=== PATIENT | female | born 1945 | race Caucasian/White ===

== ENCOUNTER 2020-11-17 14:33 | Inpatient (IN) | payer MEDICARE, MEDICAID, SELFPAY ==
[2020-11-17] VITALS (22 sets, daily range): BP systolic 87–160; BP diastolic 44–143; PULSE 72–89; RESP 15–22; TEMP 36.1–36.8; O2SAT 72–100
--- NOTE | ~2020-11-17 | CT_ITS ---
EXAMINATION: CTA chest PE protocol DATE: 11/17/2020 17:21 INDICATION: Hypoxia TECHNIQUE: Computed tomography (CT) pulmonary angiogram of the chest was performed with 100 mL Omnipa que-350 intravenous contrast. Additional 3D reconstructions utilizing coronal maximum intensity proje ction (MIP) were performed. Automated exposure control and iterative reconstruction technique were em ployed. The dose-length product was 868.91 mGy-cm. COMPARISON: None FINDINGS: Excellent contrast opacification of the pulmonary arteries. There is moderate streak artifact from de nse contrast in the superior vena cava and right atrium. Mild scattered respiratory motion artifact. Give this mildly decreases sensitivity in some of the smaller subsegmental pulmonary arteries. No pul monary embolism. Small lung volumes and bilateral dependent predominant groundglass opacities consist ent with atelectasis due to expiratory phase of imaging with concave posterior wall to the trachea. N o pleural effusion or pneumothorax. Cardiomegaly. Atherosclerotic coronary artery calcification. No p ericardial effusion. Prominent paracardial fat pads and mediastinal lipomatosis. Thoracic aorta is no rmal in caliber with no dissection. No pathologically enlarged thoracic visualized upper abdomen is u nremarkable. lymphadenopathy. Severe thoracic spondylosis with bridging osteophytes at multiple level s consistent with diffuse idiopathic skeletal hyperostosis (DISH). IMPRESSION: 1. No pulmonary embolism. Sensitivity mildly decreased in some of the smaller subsegmental pulmonary arteries due to streak and respiratory motion artifact. 2. Small lung volumes with bilateral dependent atelectasis likely due to expiratory phase of imaging. 3. Cardiomegaly. Reviewed, dictated and finalized at location A. IMPRESSION: 1. No pulmonary embolism. Sensitivity mildly decreased in some of the smaller s ubsegmental pulmonary arteries due to streak and respiratory motion artifact. 2. Small lung volumes with bilateral dependent atelectasis likely due to expira tory phase of imaging. 3. Cardiomegaly.
--- NOTE | ~2020-11-17 | XR_ITS ---
EXAMINATION: XR chest 1V DATE: 11/17/2020 15:30 INDICATION: Transient alteration of awareness TECHNIQUE: frontal view of the chest was obtained. COMPARISON: None FINDINGS: Subtle opacity at the right upper lung zone. Cardiomegaly with prominent left paracardial fat pad whi ch is accentuated by some leftward rotation of the patient. No pleural effusion or pneumothorax. IMPRESSION: 1. Subtle asymmetric increased opacity in the right upper lung zone which raises suspicion for pneumo marcus but could also be artifact of the leftward rotation of the patient. Reviewed, dictated and finalized at location A. IMPRESSION: 1. Subtle asymmetric increased opacity in the right upper lung zone which raise s suspicion for pneumonia but could also be artifact of the leftward rotation o f the patient.
--- NOTE | ~2020-11-17 | CT_ITS ---
EXAMINATION: CT brain wo con DATE: 11/17/2020 15:26 INDICATION: Confusion TECHNIQUE: Computed tomography (CT) of the head was performed without intravenous contrast. Sagittal and coronal reconstructions were performed. The mA was adjusted according to patient size. Iterative reconstruction technique was employed. The dose-length product was 605.33 mGy-cm. COMPARISON: None FINDINGS: No acute intracranial hemorrhage, acute infarction or abnormal extra axial fluid collection. There is mild scattered white matter hypoattenuation consistent with chronic small vessel ischemic disease. V entricles are normal and symmetric. No mass/mass effect. Changes of bilateral intraocular lens replac ement. The orbits, paranasal sinuses and mastoid air cells are normal. Intracranial calcified cerebra l atherosclerosis is noted. IMPRESSION: 1. No acute intracranial process. 2. Mild scattered white matter hypoattenuation consistent with chronic small vessel ischemic disease. Reviewed, dictated and finalized at location A. IMPRESSION: 1. No acute intracranial process. 2. Mild scattered white matter hypoattenuation consistent with chronic small ve ssel ischemic disease.
--- NOTE | 2020-11-17 14:56 | ECG_ITS ---
Measurements Intervals [place] Rate: 86 P: 57 WA: 168 QRS: -18 QRSD: 146 T: 21 QT: 399 QTc: 478 Interpretive Statements SINUS RHYTHM RIGHT BUNDLE BRANCH BLOCK ABNORMAL ECG Electronically Signed On 11-17-2020 17:42:24 CDT by Forrest Batres D.O.
[2020-11-17 14:57] LABS: Base Excess ABG 8.7 mEq/l (+/-2.0); Carboxyhemoglobin 0.9 % THb (0-2.0); Fractional Inspired Oxygen 21 %; HCO3 ABG 35.2 mEq/l (22.0-26.0); Methemoglobin ABG 0.2 %THb (0-1.5); Oxygen Content ABG 14.8 %vol (16.0-22.0); Oxyhemoglobin 81.2 % THb (90.0-100.0); PCO2 ABG 57.1 mmHg (35.0-45.0); PO2 FiO2 Ratio Arterial Blood 2.35 %; Reduced Hemoglobin 17.7 %THb (0-5.0); pH ABG 7.408 (7.350-7.450)
[2020-11-17 14:58] LABS: PO2 ABG 49.4 mmHg (80.0-100.0)
[2020-11-17 14:59] LABS: Device ROOM AIR; Modified Allen's Test Pass; Oxygen Saturation ABG 84.3 % (95.0-100.0); Site Drawn RIGHT RADIAL
[2020-11-17 15:10] LABS: Add Urine Microscopic? YES; Appearance Urine Clear (Clear); Bilirubin Urine Negative (Negative); Blood Urine Negative (Negative); Color Urine Yellow (Yellow); Glucose Urine UA 3+ mg/dL (Negative); Ketones Urine Negative (Negative); Leukocyte Esterase Ur 1+ LEU/UL (Negative); Mucus Urine Rare /lpf; Nitrate Urine Negative (Negative); Protein Urine Negative (Negative); RBC Urine 0-2 /hpf (0-2); Specific Grav Ur 1.012 (1.001-1.035); Squamous Epithelial Cell Urine Occasional /hpf (Few); Urobilinogen Urine Negative mg/dL (<2.0); WBC Urine 0-3 /hpf
[2020-11-17 15:54] LABS: Basophils Percent Auto 0.5 % (0.2-1.2); Eosinophils Absolute Auto 0.1 K/mm3 (0-0.3); Eosinophils Percent Auto 1.6 % (0-4.4); Hematocrit 38.2 % (42.0-52.0); Hemoglobin 12.2 g/dL (14.0-18.0); Immature Granulocyte Absolute 0.03 K/mm3 (0.00-0.031); Immature Granulocyte Percent A 0.5 % (0-0.5); Lymphocytes Absolute Auto 1.21 K/mm3 (0.9-3.2); Lymphocytes Percent Auto 19.6 % (18.3-44.2); Mean Corpuscular HGB Conc 31.9 g/dl (32-36); Mean Corpuscular Hemoglobin 30.7 pg (26-34); Mean Corpuscular Volume 96.2 fl (80-100); Mean Platelet Volume 10.2 fl (7.4-10.4); Monocytes Absolute Auto 0.5 K/mm3 (0.1-0.6); Monocytes Percent Auto 8.7 % (2.6-8.5); Neutrophils Absolute Auto 4.3 K/mm3 (1.3-6.7); Neutrophils Percent Auto 69.1 % (45.5-73.1); Platelet Count Result 381 k/mm3 (150-375); Red Blood Count 3.97 M/mm3 (4.6-6.20); Red Cell Distribution Width 14.1 % (11.5-14.5); White Blood Count 6.2 K/mm3 (4.5-10.0)
[2020-11-17 16:07] LABS: Alanine Aminotransferase 26 U/L (4-50); Alkaline Phosphatase 69 U/L (38-126); Anion Gap 1 mmol/L (8-16); Aspartate Amino Transferase 41 U/L (17-59); Bilirubin,Total 0.2 mg/dL (0.2-1.3); Blood Urea Nitrogen 44 mg/dL (9-20); Calcium 10.6 mg/dL (8.4-10.2); Carbon Dioxide 37 mmol/L (22-30); Chloride 92 mmol/L (98-107); Estimated CRCL calculation 43 ml/min; Estimated Glomerular Filt Rate 54; Glucose 278 mg/dL (65-110); Potassium 3.8 mmol/L (3.4-5.0); Sodium 130 mmol/L (137-145)
[2020-11-17 16:19] LABS: NT Pro B Type Natriuretic Pept 418 pg/mL (5-100); Troponin I < 0.012 ng/mL (0.000-0.034)
--- NOTE | 2020-11-17 16:49 | ED.WEAKNESS ---
HPI - Weakness General Chief complaint: Altered Mental Status Stated complaint: weakness Time Seen by Provider: 11/17/20 15:00 History of Present Illness HPI Narrative: Patient presents with altered mental status. Patient referred from a intermediate facility last time she was seen normal was around noon today. Patient's baseline mental status is alert and oriented x3 and is conversational. Patient has been more tired and mumbles when she responds to questions is a deviation from her norm. Nursing facility reports she was doing well this morning and over the past couple days Related Data Home Medications Medication Instructions Recorded Confirmed atorvastatin 11/17/20 fenofibrate nanocrystallized mg PO 11/17/20 fluticasone propionate [Flovent INHALATION 11/17/20 Diskus] furosemide 11/17/20 insulin NPH isoph U-100 human unit SUBCUT 11/17/20 [Novolin N Flexpen] insulin glargine [Lantus U-100 SUBCUT 11/17/20 Insulin] omeprazole 11/17/20 Allergies Allergy/AdvReac Type Severity Reaction Status Date / Time propofol Allergy Unknown Verified 11/17/20 22:05 Review of Systems Review of Systems: ROS unobtainable: Yes unobtainable due to mental status Exam Narrative: GENERAL: Well-appearing, well-nourished, and in no acute distress. SNoring HEAD: Normocephalic, atraumatic. EYES: PERRLA and EOMI. ENT: Nares clear, no rhinorrhea or epistaxis. Mucous membranes moist. NECK: Supple. No masses. No JVD CHEST: Clear to auscultation. No respiratory distress. No wheezes rales or rhonchi HEART: Regular rate and rhythm. No murmur heard. Normal peripheral pulses. ABDOMEN: Soft, nontender, nondistended, normal active bowel sounds. EXTREMITIES: Normal range of motion. No edema. SKIN: Warm, dry, no rash. NEURO: No focal deficits. Lethargic slow to respond to questioning mumbling speech PSYCH: Normal mood and affect. Course Reevaluation(s) Reevaluation #1: This is no change in patient's mental status Date: 11/17/20 Time: 16:57 Vital Signs Vital signs: Vital Signs Pulse Rate 89 11/17/20 14:40 Respiratory Rate 17 11/17/20 14:40 Blood Pressure 102/90 11/17/20 14:40 Temperature 36.1 C L 11/17/20 22:00 Pulse Rate 72 11/17/20 22:00 Respiratory Rate 18 11/17/20 22:00 Blood Pressure 118/76 11/17/20 22:00 Pulse Oximetry 91 11/17/20 22:00 MDM - Weakness MDM Narrative Medical decision making narrative: They presented with altered mental status and hypoxia. Labs and imaging obtained. Labs largely unremarkable imaging with questionable pneumonia otherwise no clear etiology. Given patient's decline today per the nursing facility she is admitted for continued monitoring. Lab Data Result diagrams: 11/17/20 15:47 11/17/20 15:47 Labs: Lab Results 11/17/20 11/17/20 11/17/20 Range/Units 14:49 15:00 15:47 WBC 6.2 (4.5-10.0) K/mm3 RBC 3.97 L (4.6-6.20) M/mm3 Hgb 12.2 L (14.0-18.0) g/dL Hct 38.2 L (42.0-52.0) % MCV 96.2 (80-100) fl MCH 30.7 (26-34) pg MCHC 31.9 L (32-36) g/dl RDW 14.1 (11.5-14.5) % Plt Count 381 H (150-375) k/mm3 MPV 10.2 (7.4-10.4) fl Immature Gran % (Auto) 0.5 (0-0.5) % Neut % (Auto) 69.1 (45.5-73.1) % Lymph % (Auto) 19.6 (18.3-44.2) % [place] % (Auto) 8.7 H (2.6-8.5) % Eos % (Auto) 1.6 (0-4.4) % Baso % (Auto) 0.5 (0.2-1.2) % Lymph # (Auto) 1.21 (0.9-3.2) K/mm3 [place] # (Auto) 0.5 (0.1-0.6) K/mm3 Eos # (Auto) 0.1 (0-0.3) K/mm3 Baso # (Auto) 0.0 (0.0-0.1) K/mm3 Abs Immat Gran (auto) 0.03 (0.00-0.031) K/mm3 Absolute Neuts (auto) 4.3 (1.3-6.7) K/mm3 Absolute Nucleated RBC 0.0 (0.0-0.012) K/mm3 Nucleated RBC % 0.0 (0.0-0.2) % Methemoglobin 0.2 (0-1.5) %THb Sodium (137-145) mmol/L Potassium (3.4-5.0) mmol/L Chloride (98-107) mmol/L Carbon Dioxide (22-30) mmol/L Anion Gap (8-16) mmol/L BUN
--- NOTE | 2020-11-17 17:05 | PC.NURSE ---
Consent for IV dye obtained from son Дмитрий Dorantes.
--- NOTE | 2020-11-17 17:17 | PC.NURSE ---
Repeatedly taking 02, monitor and gown off. Pt alert to name and place when awaken. Spoke with son on phone and he reports that pt has sleep apnea and also uses 02 at home.
[2020-11-17 20:17] LABS: Lactic Acid Reflex 1.3 mmol/L (0.7-2.1)
[2020-11-17 20:18] LABS: Acetaminophen < 10 ug/mL (10-30); Ammonia < 9 umol/L (9-30); Ethanol < 10 mg/dL (<10); Salicylate < 1.0 mg/dL (2-20)
[2020-11-17 20:38] LABS: Troponin I < 0.012 ng/mL (0.000-0.034)
[2020-11-17] MEDS: SODIUM CHLORIDE 0.9% IV 1,000 ML 999 ML IV CONT (21:20)
[2020-11-18] VITALS (24 sets, daily range): BP systolic 102–138; BP diastolic 45–73; PULSE 70–97; RESP 12–26; TEMP 35.7–36.6; O2SAT 94–100
--- NOTE | 2020-11-18 01:01 | PM.IMHP ---
H&P: HPI History of Present Illness Date/Time: 11/18/20 01:01 Chief Complaint: Altered mental status Narrative: 75-year-old female with a past medical history of obstructive sleep apnea, hyperlipidemia, diabetes mellitus GERD and CHF who presented to the ER from retirement for evaluation of lethargy and weakness. group home staff reported the patient's last known normal was around 12:00 p.m.. The the patient is oriented to her name. She does not answer other orientation questions form a she falls asleep quickly. She is slow to respond. she occasionally mumbles her answers. She is able to move all extremities equally. She is rolling around in the bed and changing her position without assistance. She does not provide information regarding her current health she does tells me okay. She wakes up in follow simple commands and will stick her tongue out at me and squeeze my fingers with equal sustainability specialist strength. The patient's son reported that the patient has a history of obstructive sleep apnea. The patient had new onset of oxygen requirements in the ER requiring 6 L high-flow nasal cannula to maintain O2 sats. She had a CTA of the chest performed in the ER which demonstrated no pulmonary embolism, small lung volumes with bilateral dependent atelectasis likely due to expiratory phase on imaging and cardiomegaly. CTA did not demonstrate the opacities that were concerning for pneumonia. The patient is encephalopathy made to be due to hypoxia. She is being admitted for possible COVID rule out considering her new significant oxygen requirement. She does not have any wheezing or evidence of respiratory distress. She does have some mild hypercapnia on her ABG but she has respiratory compensation. Her hypoxemia on ABG correlated with her level of hypoxia on pulse ox. There are normal records available for my review. Source of information is from ER records. Review of Systems Review of Systems: ROS unobtainable: Yes unobtainable due to mental status [facility] Past Medical History Medical History (Updated 11/18/20 @ 01:22 by Ruma Austin DO) Asthma Presumed as the patient is on Flovent CHF (congestive heart failure) Implied as patient is on Lasix GERD (gastroesophageal reflux disease) Hyperlipidemia Insulin dependent diabetes mellitus Obstructive sleep apnea Surgical History Surgical History (Updated 11/18/20 @ 01:22 by Ruma Austin DO) Surgical history unknown Family History Family History Other Unknown family medical history Social History Social History Smoking status: Unknown if ever smoked Alcohol intake: unknown Substance use: never Substance use type: does not use Living arrangements: retirement Spiritual care concerns: No Meds Home Medications and Allergies Home Medications Medication Instructions Recorded Confirmed Type atorvastatin 11/17/20 History fenofibrate nanocrystallized mg PO 11/17/20 History fluticasone propionate [Flovent INHALATION 11/17/20 History Diskus] furosemide 11/17/20 History insulin NPH isoph U-100 human unit SUBCUT 11/17/20 History [Novolin N Flexpen] insulin glargine [Lantus U-100 SUBCUT 11/17/20 History Insulin] omeprazole 11/17/20 History Allergies Allergy/AdvReac Type Severity Reaction Status Date / Time propofol Allergy Unknown Verified 11/17/20 22:05 Vital Signs Vital Signs - 24 hr 11/17/20 14:40 11/17/20 14:41 11/17/20 14:43 Temperature 98.2 F Pulse Rate 89 87 86 Respiratory Rate 17 18 17 Blood Pressure 102/90 111/54 L Pulse Oximetry 96 100 11/17/20 14:45 11/17/20 14:46 11/17/20 15:00 Temperature Pulse Rate 87 86 86 Respiratory Rate 20 17 18 Blood Pressure 111/54 L Pulse Oximetry 97 100 84 L 11/17/20 15:02 11/17/20 15:24 11/17/20 15:31 Temperature Pulse Rate 88 83 Respiratory
--- NOTE | 2020-11-18 01:19 | ADMGEN ---
This patient, Idalia Dorantes, was admitted to [address] [place] [address] Room 303- at 2200 on 11/17/20. Patient/family oriented to hospital policies and general routines including ID bracelet, bed and alarms, visiting hours, pain management, procedures, bathroom and other care routines, personal items, smoking policy, room service/diet, and visiting hours. Information on how to activate the Rapid Response Team has been discussed. Patient/Family are encouraged to report perceived risks to care and to ask questions if they do not understand what they are told or what they should do.
[2020-11-18 01:38] LABS: Hematocrit 33.5 % (42.0-52.0); Hemoglobin 10.9 g/dL (14.0-18.0); Mean Corpuscular HGB Conc 32.5 g/dl (32-36); Mean Corpuscular Hemoglobin 30.9 pg (26-34); Mean Corpuscular Volume 94.9 fl (80-100); Mean Platelet Volume 10.1 fl (7.4-10.4); Platelet Count Result 354 k/mm3 (150-375); Red Blood Count 3.53 M/mm3 (4.6-6.20); Red Cell Distribution Width 14.2 % (11.5-14.5)
[2020-11-18] MEDS: SODIUM CHLORIDE 0.9% IV 1,000 ML 125 ML IV CONT (01:40)
[2020-11-18 01:43] LABS: Alanine Aminotransferase 20 U/L (4-50); Albumin Level 3.1 g/dL (3.5-5.1); Alkaline Phosphatase 59 U/L (38-126); Anion Gap 3 mmol/L (8-16); Aspartate Amino Transferase 32 U/L (17-59); Bilirubin,Total 0.2 mg/dL (0.2-1.3); Blood Urea Nitrogen 42 mg/dL (9-20); Calcium 9.5 mg/dL (8.4-10.2); Carbon Dioxide 33 mmol/L (22-30); Chloride 96 mmol/L (98-107); Estimated CRCL calculation 50 ml/min; Estimated Glomerular Filt Rate > 60; Glucose 239 mg/dL (65-110); Potassium 4.3 mmol/L (3.4-5.0); Sodium 132 mmol/L (137-145)
[2020-11-18 01:53] LABS: Lactic Acid Reflex 1.3 mmol/L (0.7-2.1)
[2020-11-18] MEDS: IPRATROPIUM BR 0.02% INH SOLN 0.5 MG/2.5 ML VIAL INHALATION (05:33)
[2020-11-18] MEDS: ALBUTEROL SULFATE NEB 2.5 MG/0.5 ML INH 5 MG INHALATION (05:33)
[2020-11-18 06:25] LABS: Alveolar/Arterial O2 Gradient 164.9 mmHg; Base Excess ABG 6.2 mEq/l (+/-2.0); Carboxyhemoglobin 0.3 % THb (0-2.0); Fractional Inspired Oxygen 45 %; HCO3 ABG 34.8 mEq/l (22.0-26.0); Methemoglobin ABG 0.4 %THb (0-1.5); Oxygen Content ABG 16.2 %vol (16.0-22.0); Oxyhemoglobin 92.1 % THb (90.0-100.0); PO2 ABG 74.4 mmHg (80.0-100.0); PO2 FiO2 Ratio Arterial Blood 1.65 %; Reduced Hemoglobin 7.2 %THb (0-5.0); Total Hemoglobin 12.5 g/dL (12.0-18.0); pH ABG 7.304 (7.350-7.450)
[2020-11-18 06:26] LABS: Modified Allen's Test Pass; Site Drawn RIGHT RADIAL
[2020-11-18 06:27] LABS: Device NASAL CANNULA
[2020-11-18 06:37] LABS: PCO2 ABG 71.7 mmHg (35.0-45.0)
[2020-11-18] MEDS: INSULIN ASPART (*BKC) 100 UNITS/ML SUB-Q ×3 (08:58→18:35)
[2020-11-18 09:11] LABS: Magnesium 1.5 mg/dL (1.6-2.3)
[2020-11-18 09:23] LABS: Glucose Point of Care 325 mg/dl (65-105)
--- NOTE | 2020-11-18 09:44 | PM.IMPN ---
Progress Note: A&P Assessment and Plan (1) Acute respiratory failure with hypoxia and hypercapnia: Code(s): J96.01 - Acute respiratory failure with hypoxia; J96.02 - Acute respiratory failure with hypercapnia Status: Acute Assessment and Plan: Presented with significant hypoxia and hypoxemia , mild hypercapnia. CTA negative for PE and bilateral ground-glass opacities consistent with atelectasis Repeat ABG reviewed with improved hypoxemia and increased hypercapnia BiPAP therapy has been initiated Repeat ABG 1 hour following BiPAP initiation Consult to pulmonology. Input is appreciated. Continue albuterol and Atrovent nebs (2) Altered mental status: Qualifiers: Altered mental status type: unspecified Qualified Code(s): R41.82 - Altered mental status, unspecified Code(s): R41.82 - Altered mental status, unspecified Status: Acute Assessment and Plan: A&O x2 this morning. Her baseline is unknown. May be related to hypercapnia UA not convincing for infection, she is unable to indicate urinary symptoms. No other signs/sx to suggest acute infection Will check TSH, B12, folate, ammonia Head CT with no acute findings I spoke with nurse at [place] who reports typically A&Ox2, felt to have decreased responsiveness on 11/17 prompting emergency eval. Seems to be at her baseline currently just more drowsy which may be due to respiratory failure. Additional workup pending as above. (3) Insulin dependent diabetes mellitus: Status: Acute Assessment and Plan: Glucose elevated above target. Accu-Cheks, sliding scale insulin, hypoglycemic protocol She has been started on steroids, therefore well add scheduled NovoLog with meals and Lantus qHS Check A1c (4) Person under investigation for COVID-19: Code(s): Z20.822 - Contact with and (suspected) exposure to COVID-19 Status: Acute Assessment and Plan: Given her respiratory illness, she has been tested for COVID-19. She has been vaccinated for COVID. Continue isolation precautions. COVID test pending Has been initiated on dexamethasone given history of asthma in CO2 retention Monitor O2 sats. Continue bronchodilators Evaluate acute phase reactants Additional Plan Mag 1.5. Administer 1 g IV mag sulfate Subjective Date/time seen: 11/18/20 09:44 Interval history: Date of service: 11/18/2020 Idalia Dorantes is a 75-year-old female with history of asthma, CHF, untreated ALMA, insulin-dependent type 2 diabetes mellitus, and hyperlipidemia who is seen in follow-up for altered mental status and acute respiratory failure. I received a call at approximately 7:00 a.m. regarding the patient's critical ABG results with pCO2 71.7. I went to evaluate the patient in she was sleeping on exam. She was arousable to light physical stimuli, however would promptly fall back asleep. She was snoring. She could tell me her name and the year, but not the president. When asked where she was, she said she was at [place]. I explained to her that we are at [facility] and she knew that is located in [place]. She is not able to provide any additional history or answer any additional questions due to her lethargy. Review of Systems Review of Systems: ROS unobtainable: Yes unobtainable due to medical condition Exam Narrative: Ms. Dorantes is an obese, chronically ill-appearing 75-year-old female who is lying supine in bed. Neuro: asleep, awakes to physical stimuli but extremely drowsy. Oriented to self and time. No focal neuro deficits noted HEENMT: normocephalic, atraumatic, moist oral mucosa Neck: supple, no lymphadenopathy, sclerae anicteric Respiratory: clear to auscultation bilaterally, snoring respirations Cardio: regular rate, regular rhythm with S1-S2 Abdomen: nondistended, normoactive bowel sounds, soft, nontender to palpation Extremities: no edema, erythema, or tenderness to pal
[2020-11-18 11:00] LABS: Alveolar/Arterial O2 Gradient 186.4 mmHg; Base Excess ABG 8.2 mEq/l (+/-2.0); Fractional Inspired Oxygen 50 %; HCO3 ABG 36.1 mEq/l (22.0-26.0); Oxygen Content ABG 16.7 %vol (16.0-22.0); Oxygen Saturation ABG 96.5 % (95.0-100.0); PO2 ABG 93.7 mmHg (80.0-100.0); PO2 FiO2 Ratio Arterial Blood 1.87 %; Total Hemoglobin 12.3 g/dL (12.0-18.0); pH ABG 7.344 (7.350-7.450)
[2020-11-18 11:01] LABS: PCO2 ABG 67.9 mmHg (35.0-45.0); Site Drawn RIGHT BRACHIAL
[2020-11-18 11:02] LABS: Device NON-INVASIVE VENT; Non-Invasive Expiratory Pressure 5 CMH2O; Non-Invasive Inspiratory Pressure 12 CMH2O; Non-Invasive Vent Rate 16 /MIN
--- NOTE | 2020-11-18 11:24 | PCRCNOTE ---
Window of time for administration has passed. See next scheduled administration.
--- NOTE | 2020-11-18 11:27 | PM.CNPUL ---
Assessment and Plan Assessment and plan (1) Acute respiratory failure with hypoxia and hypercapnia: Code(s): J96.01 - Acute respiratory failure with hypoxia; J96.02 - Acute respiratory failure with hypercapnia Status: Acute Assessment and Plan: Patient with chronic hypercarbic respiratory failure with a pH of 7.41/57/49. She carries no history of COPD. She does have a history of asthma but there is no evidence of an asthma exacerbation at this time. CT angiogram of the chest shows no PE, no pneumonia and no evidence of fluid overload. At this time patient has obesity hypoventilation with chronic hypercarbic respiratory failure with a serum bicarbonate of 37 and a PaCO2 of 57. COVID test is pending. Empirically started on Levaquin. Patient with chronic respiratory failure from obesity hypoventilation syndrome and will benefit from BiPAP or noninvasive ventilation to prevent disease progression and further deterioration requiring hospitalization in the future. Currently she is on BiPAP rate of 16 with pressures 12/5 and 50% With an improved blood gas to 7.34/60 . I will increase her inspiratory pressure to 17 and continue these settings overnight and check a blood gas in the morning. Patient currently has no wheezing and at this time will continue dexamethasone until she is ruled out for COVID and continued albuterol neb 2.5 mg q.6 hours. I will discontinue ipratropium. Further workup for her altered mental status is in progress per the hospitalist team. Will follow with you.. History of Present Illness History of Present Illness Consult date: 11/18/20 Reason for consult: hypoxemia Chief complaint: AMS, hypoxia Narrative: 75-year-old with history of obstructive sleep apnea, asthma on flovent discus 50 mcg BID, diabetes, CHF [facility]. Apparently patient is not on any oxygen at the prison but was found to be lethargic. In the emergency room the patient had a white blood cell count of 6.2 a creatinine of 1.3 a serum bicarb of 3 and a blood gas of 7.41/57/[address] of the head showed no acute intracranial process. CT angiogram showed no pulmonary embolism, small lung volumes with dependent atelectasis but no pneumonia and no pulmonary edema.BNP 418, ammonia < 9. Salicylates, acetaminophen and ethyl alcohol were negative. COVID test is pending. 11/18 Patient had a blood gas at 6:13 a.m. demonstrating a pH of 7.30/72/74 on 6 L nasal cannula and was placed on BiPAP 12/5 and 50%. I examined the patient and she was on BiPAP. She did open her eyes to name and she did show me 2 fingers bilaterally and wiggled her toes bilaterally but was lethargic and would fall back to sleep. Patient denied any pain. Patient told me she did not wear a CPAP mask at home and she denied obstructive sleep apnea to me. Repeat blood gas on BiPAP was 7.34/68/94. DATA: EXAMINATION: CTA chest PE protocol DATE: 11/17/2020 17:21 INDICATION: Hypoxia TECHNIQUE: Computed tomography (CT) pulmonary angiogram of the chest was performed with 100 mL Omnipaque-350 intravenous contrast. Additional 3D reconstructions utilizing coronal maximum intensity projection (MIP) were performed. Automated exposure control and iterative reconstruction technique were employed. The dose-length product was 868.91 mGy-cm. COMPARISON: None FINDINGS: Excellent contrast opacification of the pulmonary arteries. There is moderate streak artifact from dense contrast in the superior vena cava and right atrium. Mild scattered respiratory motion artifact. Give this mildly decreases sensitivity in some of the smaller subsegmental pulmonary arteries. No pulmonary embolism. Small lung volumes and bilateral dependent predominant groundglass opacities consistent with atelectasis due to expiratory phase of imaging with concave posterior wall to the trachea. No pleural
[2020-11-18 11:32] LABS: Ammonia < 9 umol/L (9-30)
[2020-11-18 12:01] LABS: Thyroid Stimulating Hormone Reflex 0.612 uIU/mL (0.465-4.68)
[2020-11-18 12:08] LABS: Hemoglobin A1C 11.6 % (<5.7)
[2020-11-18 12:32] LABS: Folic Acid 16.6 ng/mL (2.76->20)
[2020-11-18 12:41] LABS: Glucose Point of Care 316 mg/dl (65-105)
[2020-11-18] MEDS: ALBUTEROL SULFATE NEB 2.5 MG/0.5 ML INH INHALATION ×2 (14:08→21:33)
--- NOTE | 2020-11-18 15:34 | PC.NURSE ---
THis RN transferred pt to 211 via bed and 15L NRB per RT, as bipap was not able to be mobile. Report given to SHRUTI Naranjo.
--- NOTE | 2020-11-18 15:42 | PC.NURSE ---
Son, person to notify, made aware of pt xfer and pt PUI, unable to have visitors.
[2020-11-18] MEDS: MAGNESIUM SULF 1 GM/D5W 100 ML 1 GM/100 ML BAG IVPB (16:45)
[2020-11-18] MEDS: TOLNAFTATE 1% POWDER 45 GM BTL 1 APPLIC TOPICAL (16:46)
[2020-11-18 18:00] LABS: Glucose Point of Care 358 mg/dl (65-105)
[2020-11-18 18:30] LABS: SARS-CoV-2 RNA PCR Negative
[2020-11-18] MEDS: INSULIN ASPART (*BKC) 100 UNITS/ML 10 UNITS SUB-Q (18:34)
--- NOTE | 2020-11-18 19:54 | PC.NURSE ---
This patient, Idalia Dorantes, was received from [[id number] ] on 11/18/20 at 1400. Patient/family oriented to unit policies and routines
[2020-11-18 20:33] LABS: Glucose Point of Care 424 mg/dl (65-105)
[2020-11-18] MEDS: INSULIN ASPART (*BKC) 100 UNITS/ML 15 UNITS SUB-Q (21:06)
[2020-11-18] MEDS: INSULIN GLARGINE (*BKC) 100 UNITS/ML 30 UNITS SUB-Q (21:06)
[2020-11-19] VITALS (18 sets, daily range): BP systolic 109–148; BP diastolic 60–85; PULSE 76–94; RESP 16–24; TEMP 36.4–37.8; O2SAT 94–100
[2020-11-19 00:24] LABS: Glucose Point of Care 290 mg/dl (65-105)
[2020-11-19] MEDS: ALBUTEROL SULFATE NEB 2.5 MG/0.5 ML INH INHALATION ×2 (03:28→09:06)
[2020-11-19 05:05] LABS: Alveolar/Arterial O2 Gradient 173.5 mmHg; Base Excess ABG 9.9 mEq/l (+/-2.0); Fractional Inspired Oxygen 50 %; HCO3 ABG 37.3 mEq/l (22.0-26.0); Oxygen Content ABG 17.7 %vol (16.0-22.0); Oxygen Saturation ABG 97.9 % (95.0-100.0); Oxyhemoglobin 97.3 % THb (90.0-100.0); PO2 ABG 111.3 mmHg (80.0-100.0); PO2 FiO2 Ratio Arterial Blood 2.23 %; Total Hemoglobin 12.8 g/dL (12.0-18.0); pH ABG 7.385 (7.350-7.450)
[2020-11-19 05:06] LABS: Hematocrit 38.8 % (42.0-52.0); Hemoglobin 11.8 g/dL (14.0-18.0); Mean Corpuscular HGB Conc 30.4 g/dl (32-36); Mean Corpuscular Hemoglobin 30.9 pg (26-34); Mean Corpuscular Volume 101.6 fl (80-100); Mean Platelet Volume 10.1 fl (7.4-10.4); Platelet Count Result 388 k/mm3 (150-375); Red Blood Count 3.82 M/mm3 (4.6-6.20); Red Cell Distribution Width 14.3 % (11.5-14.5); White Blood Count 10.3 K/mm3 (4.5-10.0)
[2020-11-19 05:08] LABS: PCO2 ABG 63.7 mmHg (35.0-45.0)
[2020-11-19 05:09] LABS: Device NON-INVASIVE VENT; Modified Allen's Test Pass; Site Drawn RIGHT RADIAL
[2020-11-19 05:10] LABS: Non-Invasive Expiratory Pressure 5 CMH2O; Non-Invasive Inspiratory Pressure 17 CMH2O; Non-Invasive Vent Rate 16 /MIN
[2020-11-19 05:26] LABS: Anion Gap 5 mmol/L (8-16); Blood Urea Nitrogen 31 mg/dL (9-20); Calcium 9.5 mg/dL (8.4-10.2); Carbon Dioxide 35 mmol/L (22-30); Chloride 96 mmol/L (98-107); Estimated CRCL calculation 55 ml/min; Estimated Glomerular Filt Rate > 60; Glucose 283 mg/dL (65-110); Potassium 4.2 mmol/L (3.4-5.0); Sodium 136 mmol/L (137-145)
[2020-11-19 09:04] LABS: Glucose Point of Care 298 mg/dl (65-105)
--- NOTE | 2020-11-19 09:30 | PM.IMPN ---
Progress Note: A&P Assessment and Plan (1) Acute respiratory failure with hypoxia and hypercapnia: Code(s): J96.01 - Acute respiratory failure with hypoxia; J96.02 - Acute respiratory failure with hypercapnia Status: Acute Assessment and Plan: Presented with significant hypoxia and hypoxemia , mild hypercapnia. CTA negative for PE and bilateral ground-glass opacities consistent with atelectasis. No findings to suggest pneumonia, COPD, asthma. [place] to be consistent with obesity hypoventilation syndrome. Started on continuous BiPAP yesterday due to lethargy and increased hypercapnia. Repeat ABG this morning with improvement of hypercapnia. Mental status has improved significantly and she has remained awake and alert. Appreciate pulmonology consultation Continue with BiPAP at night or with naps. Repeat ABG tomorrow morning. Resume home Flovent, albuterol nebs prn (2) Altered mental status: Qualifiers: Altered mental status type: unspecified Qualified Code(s): R41.82 - Altered mental status, unspecified Code(s): R41.82 - Altered mental status, unspecified Status: Acute Assessment and Plan: Resolved. She is A&O x2 this morning, consistent with her baseline per [facility] staff. Mental status significantly improved with respiratory improvement. Likely related to respiratory illness. UA not convincing for infection. TSH, B12, folate, ammonia WNL. Head CT with no acute findings Monitor mental status closely. (3) Insulin dependent diabetes mellitus: Status: Acute Assessment and Plan: A1c is 11.6. Blood sugars elevated in the 280s-300s. Accu-Cheks, sliding scale insulin, hypoglycemic protocol Scheduled novolog with meals 7 units TID Lantus 30 units qHS Steroids have been discontinued, anticipate some improvement in blood sugars (4) COVID-19 ruled out by laboratory testing: Code(s): Z20.822 - Contact with and (suspected) exposure to COVID-19 Status: Acute Assessment and Plan: Negative test result on 11/17/2020. She has been vaccinated for COVID. Additional Plan Patient is hemodynamically stable and can be downgraded from IMU to medical floor. Subjective Date/time seen: 11/19/20 09:30 Interval history: Date of service: 11/18/2020 Idalia Dorantes is a 75-year-old female with history of asthma, CHF, untreated ALMA, insulin-dependent type 2 diabetes mellitus, and hyperlipidemia who is seen in follow-up for altered mental status and acute respiratory failure. she is doing much better today and is more awake. She remains awake and alert throughout the entire encounter. She cannot recall the details of yesterday as she was asleep for most of the day. At this time, she is feeling well and has no real complaints. She denies shortness breath cough, wheezing, orthopnea, PND. No chest pain or palpitations. Denies dizziness or lightheadedness. Tells me that she is wheelchair-bound at her retirement.She has not eaten yet today but reports feeling hungry and thirsty. Denies abdominal pain, nausea, vomiting, fever, or chills. denies swelling in her extremities. Review of Systems Review of Systems: All systems reviewed & are unremarkable except as noted in HPI and below Exam Narrative: Ms. Dorantes is an obese, chronically ill-appearing 75-year-old female who is lying supine in bed. She appears comfortable and is in no acute respiratory distress. Neuro: Awake, alert and oriented to self and location. Speech clear. No focal neuro deficits noted HEENMT: normocephalic, atraumatic, sclera anicteric, EOMI, moist oral mucosa Neck: supple, no lymphadenopathy, large circumference Respiratory: clear to auscultation bilaterally Cardio: regular rate, regular rhythm with S1-S2 Abdomen: nondistended, normoactive bowel sounds, soft, nontender to palpation Extremities: no edema, erythema, or tenderness to palpation, DP pulses 2+ bilater
--- NOTE | 2020-11-19 09:35 | PM.PNPUL ---
Progress Note: A&P Assessment and Plan (1) Acute respiratory failure with hypoxia and hypercapnia: Code(s): J96.01 - Acute respiratory failure with hypoxia; J96.02 - Acute respiratory failure with hypercapnia Status: Acute Assessment and Plan: 11/18 Patient with chronic hypercarbic respiratory failure with a pH of 7.41/57/49. She carries no history of COPD. She does have a history of asthma but there is no evidence of an asthma exacerbation at this time. CT angiogram of the chest shows no PE, no pneumonia and no evidence of fluid overload. At this time patient has obesity hypoventilation with chronic hypercarbic respiratory failure with a serum bicarbonate of 37 and a PaCO2 of 57. COVID test is pending. Empirically started on Levaquin. Patient with chronic respiratory failure from obesity hypoventilation syndrome and will benefit from BiPAP or noninvasive ventilation to prevent disease progression and further deterioration requiring hospitalization in the future. Currently she is on BiPAP rate of 16 with pressures 12/5 and 50% With an improved blood gas to 7.34/60 . I will increase her inspiratory pressure to 17 and continue these settings overnight and check a blood gas in the morning. Patient currently has no wheezing and at this time will continue dexamethasone until she is ruled out for COVID and continued albuterol neb 2.5 mg q.6 hours. I will discontinue ipratropium. Further workup for her altered mental status is in progress per the hospitalist team. 11/19 Patient has obesity hypoventilation syndrome with hypercarbic respiratory failure. No evidence of COPD, pneumonia, fluid overload or asthma exacerbation. Patient wore BiPAP rate of 16, 17/5 with 50% overnight with a blood gas at the end of the night of 7.39/64/111. Today patient tells me that she is breathing back to her normal. I will increase her backup rate to 20, increase her inspiratory pressure to 20 and decrease her FiO2 35 and repeat a blood gas in the morning and obtain an overnight oximetry. Will DC dexamethasone as COVID negative. Place on fluticose 44 mcg 1 puff BID. PRN albuterol. Will follow with you. Subjective Date/time seen: 11/19/20 09:35 Interval history: New consult on 11/18 Narrative: 75-year-old with history of obstructive sleep apnea, asthma on flovent discus 50 mcg BID, diabetes, CHF who presented from the senior living for lethargy and weakness. Apparently patient is not on any oxygen at the senior living but was found to be lethargic. In the emergency room the patient had a white blood cell count of 6.2 a creatinine of 1.3 a serum bicarb of 3 and a blood gas of 7.41/57/[address] of the head showed no acute intracranial process. CT angiogram showed no pulmonary embolism, small lung volumes with dependent atelectasis but no pneumonia and no pulmonary edema.BNP 418, ammonia < 9. Salicylates, acetaminophen and ethyl alcohol were negative. COVID test is pending. 11/18 Patient had a blood gas at 6:13 a.m. demonstrating a pH of 7.30/72/74 on 6 L nasal cannula and was placed on BiPAP 12/5 and 50%. I examined the patient and she was on BiPAP. She did open her eyes to name and she did show me 2 fingers bilaterally and wiggled her toes bilaterally but was lethargic and would fall back to sleep. Patient denied any pain. Patient told me she did not wear a CPAP mask at home and she denied obstructive sleep apnea to me. Repeat blood gas on BiPAP was 7.34/68/94. 11/19 Covid negative. Patient wore BiPAP rate of 16, 17/5 with 50% overnight with a blood gas at the end of the night of 7.39/64/111. Today patient tells me that she is breathing back to her normal. She knows her name, place stated it was November 25 2020, did not know the president, named a pen, named pen cap, did not name a pen cap clip. She tells me she had a sleep study about a year ago and did not have obstruct
[2020-11-19] MEDS: INSULIN ASPART (*BKC) 100 UNITS/ML SUB-Q ×3 (09:48→17:18)
[2020-11-19] MEDS: INSULIN ASPART (*BKC) 100 UNITS/ML 10 UNITS SUB-Q (09:48)
[2020-11-19] MEDS: TOLNAFTATE 1% POWDER 45 GM BTL 1 APPLIC TOPICAL ×2 (09:48→20:57)
[2020-11-19 12:58] LABS: Glucose Point of Care 365 mg/dl (65-105)
[2020-11-19] MEDS: INSULIN ASPART (*BKC) 100 UNITS/ML 7 UNITS SUB-Q ×2 (13:26→17:18)
[2020-11-19 16:54] LABS: Glucose Point of Care 317 mg/dl (65-105)
--- NOTE | 2020-11-19 17:20 | PC.NURSE ---
This patient, Idalia Dorantes, was transferred to [facility] on 11/19/20 at 1720. Personal belongings sent with patient. Report given to SHRUTI Gagnon. Appropriate documentation sent with patient.
[2020-11-19] MEDS: FLUTICASONE PROP 44 MCG (*SP) 10.6 GM 1 PUFF INHALATION (20:41)
[2020-11-19] MEDS: INSULIN GLARGINE (*BKC) 100 UNITS/ML 30 UNITS SUB-Q (20:55)
[2020-11-19 21:39] LABS: Glucose Point of Care 303 mg/dl (65-105)
[2020-11-20] VITALS (9 sets, daily range): BP systolic 104–156; BP diastolic 57–82; PULSE 62–85; RESP 18–22; TEMP 36.1–36.6; O2SAT 94–100
[2020-11-20 05:36] LABS: Alveolar/Arterial O2 Gradient 105.3 mmHg; Base Excess ABG 8.7 mEq/l (+/-2.0); Fractional Inspired Oxygen 35 %; HCO3 ABG 35.1 mEq/l (22.0-26.0); Oxygen Content ABG 16.6 %vol (16.0-22.0); Oxygen Saturation ABG 95.4 % (95.0-100.0); Oxyhemoglobin 94.6 % THb (90.0-100.0); PCO2 ABG 56.9 mmHg (35.0-45.0); PO2 ABG 78.1 mmHg (80.0-100.0); PO2 FiO2 Ratio Arterial Blood 2.23 %; Total Hemoglobin 12.4 g/dL (12.0-18.0); pH ABG 7.408 (7.350-7.450)
[2020-11-20 05:38] LABS: Device NON-INVASIVE VENT; Modified Allen's Test Pass; Non-Invasive Expiratory Pressure 5 CMH2O; Non-Invasive Inspiratory Pressure 20 CMH2O; Non-Invasive Vent Rate 20 /MIN; Site Drawn RIGHT RADIAL
[2020-11-20 06:25] LABS: Hematocrit 37.8 % (42.0-52.0); Hemoglobin 11.5 g/dL (14.0-18.0); Mean Corpuscular HGB Conc 30.4 g/dl (32-36); Mean Corpuscular Hemoglobin 30.7 pg (26-34); Mean Corpuscular Volume 100.8 fl (80-100); Mean Platelet Volume 9.9 fl (7.4-10.4); Platelet Count Result 373 k/mm3 (150-375); Red Blood Count 3.75 M/mm3 (4.6-6.20); Red Cell Distribution Width 14.5 % (11.5-14.5); White Blood Count 8.3 K/mm3 (4.5-10.0)
[2020-11-20 06:38] LABS: Anion Gap 7 mmol/L (8-16); Blood Urea Nitrogen 32 mg/dL (9-20); Calcium 9.4 mg/dL (8.4-10.2); Carbon Dioxide 32 mmol/L (22-30); Chloride 96 mmol/L (98-107); Estimated CRCL calculation 61 ml/min; Estimated Glomerular Filt Rate > 60; Glucose 239 mg/dL (65-110); Sodium 135 mmol/L (137-145)
[2020-11-20 08:10] LABS: Glucose Point of Care 204 mg/dl (65-105)
--- NOTE | 2020-11-20 08:16 | PM.PNPUL ---
Progress Note: A&P Assessment and Plan (1) Obesity hypoventilation syndrome: Code(s): E66.2 - Morbid (severe) obesity with alveolar hypoventilation Status: Acute Assessment and Plan: 11/18 Patient with chronic hypercarbic respiratory failure with a pH of 7.41/57/49. She carries no history of COPD. She does have a history of asthma but there is no evidence of an asthma exacerbation at this time. CT angiogram of the chest shows no PE, no pneumonia and no evidence of fluid overload. At this time patient has obesity hypoventilation with chronic hypercarbic respiratory failure with a serum bicarbonate of 37 and a PaCO2 of 57. COVID test is pending. Empirically started on Levaquin. Patient with chronic respiratory failure from obesity hypoventilation syndrome and will benefit from BiPAP or noninvasive ventilation to prevent disease progression and further deterioration requiring hospitalization in the future. Currently she is on BiPAP rate of 16 with pressures 12/5 and 50% With an improved blood gas to 7.34/60 . I will increase her inspiratory pressure to 17 and continue these settings overnight and check a blood gas in the morning. Patient currently has no wheezing and at this time will continue dexamethasone until she is ruled out for COVID and continued albuterol neb 2.5 mg q.6 hours. I will discontinue ipratropium. Further workup for her altered mental status is in progress per the hospitalist team. 11/19 Patient has obesity hypoventilation syndrome with hypercarbic respiratory failure. No evidence of COPD, pneumonia, fluid overload or asthma exacerbation. Patient wore BiPAP rate of 16, 17/5 with 50% overnight with a blood gas at the end of the night of 7.39/64/111. Today patient tells me that she is breathing back to her normal. I will increase her backup rate to 20, increase her inspiratory pressure to 20 and decrease her FiO2 35 and repeat a blood gas in the morning and obtain an overnight oximetry. Will DC dexamethasone as COVID negative. Place on fluticose 44 mcg 1 puff BID. PRN albuterol. 11/20 Patient states she is at her baseline rate regarding her respiratory status. She denies any shortness of breath. Patient is on 1 L nasal cannula saturations 99%. Patient wore her BiPAP overnight with a backup rate of 20, pressure is inspiratory 20, expiratory 5 and 35% FiO2. Patient had an ABG at the end of the night on the settings with a pH of 7.41/57/78. Patient had an overnight oximetry on these settings with a average saturation of 97%, lowest saturation 90%, time with saturations less than or equal to 88% was 0 minutes. Ready for discharge from pulmonary perspective on these pulmonary medications: Fluticasone discus 50 mcg BID BiPAP when sleeps with a backup rate of 20, pressure is inspiratory 20, expiratory 5 and 3 L bleed in. To be set up at her facility on discharge.. Daytime oxygen to maintain sats >90% at rest and with exertion per facility testing. Follow up in pulmonary clinic in 4 weeks. Discussed with Vilma Stearns, will sign off, call with questions. Subjective Date/time seen: 11/20/20 08:16 Interval history: New consult on 11/18 Narrative: 75-year-old with history of obstructive sleep apnea, asthma on flovent discus 50 mcg BID, diabetes, CHF [facility]. Apparently [facility] the [facility] but was found to be lethargic. In the emergency room the patient had a white blood cell count of 6.2 a creatinine of 1.3 a serum bicarb of 3 and a blood gas of 7.41/57/[address] of the head showed no acute intracranial process. CT angiogram showed no pulmonary embolism, small lung volumes with dependent atelectasis but no pneumonia and no pulmonary edema.BNP 418, ammonia < 9. Salicylates, acetaminophen and ethyl alc
--- NOTE | 2020-11-20 08:36 | PCRCNOTE ---
Bipap settings to be faxed to [facility] by [employer].
[2020-11-20] MEDS: INSULIN ASPART (*BKC) 100 UNITS/ML 7 UNITS SUB-Q ×2 (09:31→12:01)
[2020-11-20] MEDS: INSULIN ASPART (*BKC) 100 UNITS/ML SUB-Q ×3 (09:31→17:38)
[2020-11-20] MEDS: ASPIRIN 81 MG CHEWABLE TABLET PO (09:34)
[2020-11-20] MEDS: ATORVASTATIN 10 MG TABLET BY MOUTH (11:38)
[2020-11-20] MEDS: MAGNESIUM OXIDE 400 MG TABLET PO (11:38)
[2020-11-20] MEDS: FUROSEMIDE 40 MG TABLET PO (11:38)
[2020-11-20] MEDS: TOLNAFTATE 1% POWDER 45 GM BTL 1 APPLIC TOPICAL ×2 (11:47→21:14)
[2020-11-20 11:59] LABS: Glucose Point of Care 252 mg/dl (65-105)
[2020-11-20 17:18] LABS: Glucose Point of Care 401 mg/dl (65-105)
--- NOTE | 2020-11-20 17:24 | PM.IMPN ---
Progress Note: A&P Assessment and Plan (1) Acute respiratory failure with hypoxia and hypercapnia: Code(s): J96.01 - Acute respiratory failure with hypoxia; J96.02 - Acute respiratory failure with hypercapnia Status: Acute Assessment and Plan: Presented with significant hypoxia and hypoxemia , mild hypercapnia. CTA negative for PE and bilateral ground-glass opacities consistent with atelectasis. No findings to suggest pneumonia, COPD, asthma. [place] to be consistent with obesity hypoventilation syndrome. Started on continuous BiPAP 11/18 due to lethargy and increased hypercapnia. She had improvement ABG and overall alertness. Now on BiPAP when sleeping. Repeat ABG this morning with continued improvement of hypercapnia. Mental status has improved significantly and she has remained awake and alert. Appreciate pulmonology consultation Continue home Flovent, albuterol nebs prn Arranged for BiPAP at her nursing facility with instructions for settings. Supplemental O2 during daytime with goal sats 90% or above. (2) Altered mental status: Qualifiers: Altered mental status type: unspecified Qualified Code(s): R41.82 - Altered mental status, unspecified Code(s): R41.82 - Altered mental status, unspecified Status: Acute Assessment and Plan: Resolved. She is A&O x4 today. Mental status significantly improved with respiratory improvement. Likely related to respiratory illness. UA not convincing for infection. TSH, B12, folate, ammonia WNL. Head CT with no acute findings Monitor mental status closely. (3) Insulin dependent diabetes mellitus: Status: Acute Assessment and Plan: A1c is 11.6. Blood sugars elevated in the 280s-300s. Blood sugar of 400 this afternoon. Accu-Cheks, sliding scale insulin, hypoglycemic protocol Scheduled novolog with meals increase to 10 units Increase Lantus to 35 units qHS Steroids have been discontinued, anticipate some improvement in blood sugars. Monitor closely (4) COVID-19 ruled out by laboratory testing: Code(s): Z20.822 - Contact with and (suspected) exposure to COVID-19 Status: Acute Assessment and Plan: Negative test result on 11/17/2020. She has been vaccinated for COVID. Subjective Date/time seen: 11/20/20 17:24 Interval history: Date of service: 11/20/2020 Idalia Dorantes is a 75-year-old female with history of asthma, CHF, untreated ALMA, insulin-dependent type 2 diabetes mellitus, and hyperlipidemia who is seen in follow-up for altered mental status and acute respiratory failure. She is doing better today. She is more awake. No breathing issues. Denies shortness breath, cough wheezing. No chest pain or palpitations. No dizziness or lightheadedness. She has been eating well. No nausea, vomiting, fever, or chills Review of Systems Review of Systems: All systems reviewed & are unremarkable except as noted in HPI and below Exam Narrative: Ms. Dorantes is an obese, chronically ill-appearing 75-year-old female who is lying supine in bed. She appears comfortable and is in no acute respiratory distress. Neuro: Awake, alert and oriented x4 Speech clear. No focal neuro deficits noted HEENMT: normocephalic, atraumatic, sclera anicteric, EOMI, moist oral mucosa Neck: supple, no lymphadenopathy, large circumference Respiratory: clear to auscultation bilaterally, nonlabored breathing Cardio: regular rate, regular rhythm with S1-S2 Abdomen: nondistended, normoactive bowel sounds, soft, nontender to palpation Extremities: no edema, erythema, or tenderness to palpation, DP pulses 2+ bilaterally Skin: no rashes or lesions, warm and dry Psych: appropriate mood and affect, judgment and insight intact Objective Data Vital Signs Vital Signs: Vital Signs - 24 hr 11/19/20 17:46 11/19/20 20:30 11/19/20 22:00 Temperature 98.1 F 100.0 F H Pulse Rate 83 81 81 Respiratory Rate 16
[2020-11-20] MEDS: INSULIN ASPART (*BKC) 100 UNITS/ML 10 UNITS SUB-Q (17:43)
[2020-11-20 19:47] LABS: Glucose Point of Care > 500 mg/dl (65-105)
[2020-11-20] MEDS: INSULIN ASPART (*BKC) 100 UNITS/ML 18 UNITS SUB-Q (20:00)
[2020-11-20] MEDS: FLUTICASONE PROP 44 MCG (*SP) 10.6 GM 1 PUFF INHALATION (21:14)
[2020-11-20] MEDS: INSULIN GLARGINE (*BKC) 100 UNITS/ML 35 UNITS SUB-Q (21:16)
[2020-11-20 22:27] LABS: Glucose Point of Care > 500 mg/dl (65-105)
[2020-11-21] VITALS (8 sets, daily range): BP systolic 119–138; BP diastolic 46–60; PULSE 64–84; RESP 18–21; TEMP 36.3–36.6; O2SAT 95–99
[2020-11-21 00:37] LABS: Glucose Point of Care 382 mg/dl (65-105)
[2020-11-21 07:34] LABS: Anion Gap 6 mmol/L (8-16); Blood Urea Nitrogen 31 mg/dL (9-20); Calcium 9.4 mg/dL (8.4-10.2); Carbon Dioxide 33 mmol/L (22-30); Chloride 96 mmol/L (98-107); Estimated CRCL calculation 50 ml/min; Estimated Glomerular Filt Rate > 60; Glucose 403 mg/dL (65-110); Potassium 4.4 mmol/L (3.4-5.0); Sodium 135 mmol/L (137-145)
[2020-11-21 07:55] LABS: Glucose Point of Care 389 mg/dl (65-105)
[2020-11-21] MEDS: INSULIN ASPART (*BKC) 100 UNITS/ML SUB-Q ×2 (09:23→13:14)
[2020-11-21] MEDS: INSULIN ASPART (*BKC) 100 UNITS/ML 10 UNITS SUB-Q ×4 (09:23→17:14)
[2020-11-21] MEDS: ATORVASTATIN 10 MG TABLET BY MOUTH (09:26)
[2020-11-21] MEDS: ASPIRIN 81 MG CHEWABLE TABLET PO (09:26)
[2020-11-21] MEDS: TOLNAFTATE 1% POWDER 45 GM BTL 1 APPLIC TOPICAL ×2 (09:26→21:22)
[2020-11-21] MEDS: FUROSEMIDE 40 MG TABLET PO (09:26)
[2020-11-21] MEDS: MAGNESIUM OXIDE 400 MG TABLET PO (09:26)
[2020-11-21 11:54] LABS: Glucose Point of Care 390 mg/dl (65-105)
--- NOTE | 2020-11-21 15:17 | PM.IMPN ---
Progress Note: A&P Assessment and Plan (1) Acute respiratory failure with hypoxia and hypercapnia: Code(s): J96.01 - Acute respiratory failure with hypoxia; J96.02 - Acute respiratory failure with hypercapnia Status: Acute Assessment and Plan: Presented with significant hypoxia and hypoxemia , mild hypercapnia. CTA negative for PE and bilateral ground-glass opacities consistent with atelectasis. No findings to suggest pneumonia, COPD, asthma. [place] to be consistent with obesity hypoventilation syndrome. Started on continuous BiPAP 11/18/20 due to lethargy and increased hypercapnia. She had improvement in ABG and overall alertness. Now on BiPAP when sleeping. Repeat ABG showed continued improvement of hypercapnia. Mental status has improved significantly Appreciate pulmonology consultation Continue home Flovent, albuterol nebs prn Arranged for BiPAP at her nursing facility with instructions for settings. Supplemental O2 during daytime with goal sats 90% or above. (2) Altered mental status: Qualifiers: Altered mental status type: unspecified Qualified Code(s): R41.82 - Altered mental status, unspecified Code(s): R41.82 - Altered mental status, unspecified Status: Acute Assessment and Plan: Resolved. She is A&O x4 today. Mental status significantly improved with respiratory improvement. Likely related to respiratory illness. UA not convincing for infection. TSH, B12, folate, ammonia WNL. Head CT with no acute findings Monitor mental status closely. (3) Insulin dependent diabetes mellitus: Status: Acute Assessment and Plan: A1c is 11.6. Blood sugars have been elevated above target with 2 readings >500 yesterday and fasting glucose this morning 400. Accu-Cheks, sliding scale insulin, hypoglycemic protocol Continue Lantus at 50 units qHS Scheduled novolog with meals 10 units Steroids have been discontinued, anticipate some improvement in blood sugars. Monitor closely Diabetic diet Will monitor sugars with new regimen of 50 units Lantus, 10 units NovoLog t.i.d. If improved, will discharge on this regimen and stop NPH (4) COVID-19 ruled out by laboratory testing: Code(s): Z20.822 - Contact with and (suspected) exposure to COVID-19 Status: Acute Assessment and Plan: Negative test result on 11/17/2020. She has been vaccinated for COVID. Subjective Date/time seen: 11/21/20 15:17 Interval history: Date of service: 11/21/2020 Idalia Dorantes is a 75-year-old female with history of asthma, CHF, untreated ALMA, insulin-dependent type 2 diabetes mellitus, and hyperlipidemia who is seen in follow-up for altered mental status and acute respiratory failure. She is doing well today. She is a little more sleepy than yesterday and dozed off 1 time during my encounter. She has been eating well. She is incontinent of urine but has not had any issues urinating since her [place] has been removed. She denies shortness breath, cough, wheezing, chest pain, palpitations, nausea, vomiting, fever, chills. Review of Systems Review of Systems: All systems reviewed & are unremarkable except as noted in HPI and below Exam Narrative: Ms. Dorantes is an obese, chronically ill-appearing 75-year-old female who is lying supine in bed. She appears comfortable and is in no acute respiratory distress. Neuro: Awake but slightly drowsy, alert and oriented x4 Speech clear. No focal neuro deficits noted HEENMT: normocephalic, atraumatic, sclera anicteric, EOMI, moist oral mucosa Neck: supple, no lymphadenopathy, large circumference Respiratory: clear to auscultation bilaterally, nonlabored breathing Cardio: regular rate, regular rhythm with S1-S2 Abdomen: nondistended, normoactive bowel sounds, soft, nontender to palpation Extremities: no edema, erythema, or tenderness to palpation, DP pulses 2+ bilaterally Skin: no rashes or lesions, warm and dry P
[2020-11-21 16:56] LABS: Glucose Point of Care 442 mg/dl (65-105)
[2020-11-21 19:52] LABS: Glucose Point of Care 332 mg/dl (65-105)
[2020-11-21] MEDS: INSULIN GLARGINE (*BKC) 100 UNITS/ML 50 UNITS SUB-Q (21:22)
[2020-11-21 22:07] LABS: Glucose Point of Care 397 mg/dl (65-105)
[2020-11-22 06:00] VITALS: BP 136/63; PULSE 85; RESP 20; TEMP 37.1; O2SAT 97
[2020-11-22 06:55] LABS: Hematocrit 38.1 % (42.0-52.0); Hemoglobin 11.8 g/dL (14.0-18.0); Mean Corpuscular Hemoglobin 30.4 pg (26-34); Mean Corpuscular Volume 98.2 fl (80-100); Mean Platelet Volume 9.9 fl (7.4-10.4); Platelet Count Result 366 k/mm3 (150-375); Red Blood Count 3.88 M/mm3 (4.6-6.20); Red Cell Distribution Width 14.2 % (11.5-14.5); White Blood Count 9.3 K/mm3 (4.5-10.0)
[2020-11-22 07:19] LABS: Anion Gap 5 mmol/L (8-16); Blood Urea Nitrogen 32 mg/dL (9-20); Calcium 9.5 mg/dL (8.4-10.2); Carbon Dioxide 32 mmol/L (22-30); Chloride 98 mmol/L (98-107); Estimated CRCL calculation 61 ml/min; Estimated Glomerular Filt Rate > 60; Glucose 359 mg/dL (65-110); Potassium 4.4 mmol/L (3.4-5.0); Sodium 135 mmol/L (137-145)
[2020-11-22 08:00] VITALS: PULSE 85; RESP 20; O2SAT 97
[2020-11-22] MEDS: INSULIN ASPART (*BKC) 100 UNITS/ML SUB-Q ×2 (09:51→17:57)
[2020-11-22] MEDS: INSULIN ASPART (*BKC) 100 UNITS/ML 10 UNITS SUB-Q ×4 (09:52→18:26)
[2020-11-22] MEDS: MAGNESIUM OXIDE 400 MG TABLET PO (09:55)
[2020-11-22] MEDS: FUROSEMIDE 40 MG TABLET PO (09:56)
[2020-11-22] MEDS: ATORVASTATIN 10 MG TABLET BY MOUTH (09:56)
[2020-11-22] MEDS: TOLNAFTATE 1% POWDER 45 GM BTL 1 APPLIC TOPICAL ×2 (09:56→21:07)
[2020-11-22] MEDS: ASPIRIN 81 MG CHEWABLE TABLET PO (09:56)
[2020-11-22 12:31] LABS: Glucose Point of Care 415 mg/dl (65-105)
[2020-11-22 15:00] VITALS: BP 96/61; PULSE 81; RESP 14; TEMP 36.8; O2SAT 100
--- NOTE | 2020-11-22 15:34 | PM.IMPN ---
Progress Note: A&P Assessment and Plan (1) Acute respiratory failure with hypoxia and hypercapnia: Code(s): J96.01 - Acute respiratory failure with hypoxia; J96.02 - Acute respiratory failure with hypercapnia Status: Acute Assessment and Plan: Presented with significant hypoxia and hypoxemia , mild hypercapnia. CTA negative for PE and bilateral ground-glass opacities consistent with atelectasis. No findings to suggest pneumonia, COPD, asthma. [place] to be consistent with obesity hypoventilation syndrome. Started on continuous BiPAP 11/18/20 due to lethargy and increased hypercapnia. She had improvement in ABG and overall alertness. Now on BiPAP when sleeping. Repeat ABG showed continued improvement of hypercapnia. Mentation has returned to baseline. Appreciate pulmonology consultation Continue home Flovent, albuterol nebs prn Arranged for BiPAP at her nursing facility with instructions for settings. Supplemental O2 during daytime with goal sats 90% or above. (2) Altered mental status: Qualifiers: Altered mental status type: unspecified Qualified Code(s): R41.82 - Altered mental status, unspecified Code(s): R41.82 - Altered mental status, unspecified Status: Acute Assessment and Plan: Resolved. She is A&O x4 today. Mental status significantly improved with respiratory improvement. Likely related to respiratory illness. UA not convincing for infection. TSH, B12, folate, ammonia WNL. Head CT with no acute findings Monitor mental status closely. (3) Insulin dependent diabetes mellitus: Status: Acute Assessment and Plan: A1c is 11.6. Blood sugars have been elevated above target with 2 readings >500 on 11/20. Yesterday and today in the 400s. Appears she is eating almost consistently throughout the day and ordering snacks between meals approximately every 2 hours, as well as drinking many sodas. Accu-Cheks, sliding scale insulin, hypoglycemic protocol Increase Lantus to 58 units qHS Scheduled novolog with meals 10 units. 20 units Novolog given at lunchtime today due to elevated glucose Steroids discontinued on 11/20, anticipate some improvement in blood sugars. Monitor closely Diabetic diet. Snacks and sodas to be avoided. Limit to 3 meals daily to achieve improved glucose control (4) COVID-19 ruled out by laboratory testing: Code(s): Z20.822 - Contact with and (suspected) exposure to COVID-19 Status: Acute Assessment and Plan: Negative test result on 11/17/2020. She has been vaccinated for COVID. Subjective Date/time seen: 11/22/20 15:34 Interval history: Date of service: 11/22/2020 Idalia Dorantes is a 75-year-old female with history of asthma, CHF, untreated ALMA, insulin-dependent type 2 diabetes mellitus, and hyperlipidemia who is seen in follow-up for acute respiratory failure and now with uncontrolled hyperglycemia. She is feeling well today. No trouble breathing. She is tolerating her BiPAP. Denies any confusion. She is not drowsy. She has been having regular bowel movements. Denies nausea vomiting, fever, chills, dizziness, or lightheadedness. She is incontinent of urine. She has been eating all of her meals and also frequently ordering snacks. I spoke with her nurse who notes that she was ordering snacks every couple hours yesterday. She has also been drinking multiple diet sodas today Review of Systems Review of Systems: All systems reviewed & are unremarkable except as noted in HPI and below Exam Narrative: Ms. Dorantes is an obese, chronically ill-appearing 75-year-old female who is lying supine in bed. She appears comfortable and is in no acute respiratory distress. Neuro: Awake, alert and oriented x4 Speech clear. No focal neuro deficits noted HEENMT: normocephalic, atraumatic, sclera anicteric, EOMI, moist oral mucosa Neck: supple, no lymphadenopathy, large circumference Respiratory: cl
[2020-11-22 15:41] LABS: Glucose Point of Care 402 mg/dl (65-105)
[2020-11-22 17:53] LABS: Glucose Point of Care 353 mg/dl (65-105)
[2020-11-22] MEDS: INSULIN GLARGINE (*BKC) 100 UNITS/ML 58 UNITS SUB-Q (21:21)
[2020-11-22 21:49] VITALS: BP 124/43; PULSE 83; RESP 20; TEMP 36.6; O2SAT 99
[2020-11-22] MEDS: INSULIN ASPART (*BKC) 100 UNITS/ML 12 UNITS SUB-Q (22:09)
[2020-11-22 23:07] LABS: Glucose Point of Care 406 mg/dl (65-105)
[2020-11-22 23:07] LABS: Glucose Point of Care 322 mg/dl (65-105)
[2020-11-23] VITALS (7 sets, daily range): BP systolic 100–118; BP diastolic 45–67; PULSE 76–97; RESP 14–20; TEMP 36.4–37.2; O2SAT 94–99
[2020-11-23 06:55] LABS: Hematocrit 37.7 % (37.0-47.0); Hemoglobin 11.6 g/dL (12.0-15.0)
[2020-11-23 07:06] LABS: Anion Gap 6 mmol/L (8-16); Blood Urea Nitrogen 30 mg/dL (7-17); Calcium 9.5 mg/dL (8.4-10.2); Carbon Dioxide 32 mmol/L (22-30); Chloride 95 mmol/L (98-107); Estimated CRCL calculation 50 ml/min; Estimated Glomerular Filt Rate > 60; Glucose 261 mg/dL (65-110); Magnesium 1.4 mg/dL (1.6-2.3); Sodium 133 mmol/L (137-145)
[2020-11-23] MEDS: MAGNESIUM SULFATE 3GM/D5W100ML 3 GM/100 ML BAG IVPB (08:31)
[2020-11-23] MEDS: INSULIN ASPART (*BKC) 100 UNITS/ML SUB-Q ×3 (08:31→17:28)
[2020-11-23] MEDS: INSULIN ASPART (*BKC) 100 UNITS/ML 10 UNITS SUB-Q ×2 (08:31→11:57)
[2020-11-23] MEDS: ASPIRIN 81 MG CHEWABLE TABLET PO (08:37)
[2020-11-23] MEDS: ATORVASTATIN 10 MG TABLET BY MOUTH (08:37)
[2020-11-23] MEDS: MAGNESIUM OXIDE 400 MG TABLET PO (08:37)
[2020-11-23] MEDS: FUROSEMIDE 40 MG TABLET PO (08:37)
[2020-11-23] MEDS: TOLNAFTATE 1% POWDER 45 GM BTL 1 APPLIC TOPICAL ×2 (08:37→21:45)
[2020-11-23] MEDS: FLUTICASONE PROP 44 MCG (*SP) 10.6 GM 1 PUFF INHALATION (10:00)
[2020-11-23 11:41] LABS: Glucose Point of Care 298 mg/dl (65-105)
[2020-11-23 11:41] LABS: Glucose Point of Care 344 mg/dl (65-105)
[2020-11-23 14:29] LABS: Glucose Point of Care 432 mg/dl (65-105)
--- NOTE | 2020-11-23 14:44 | PM.IMPN ---
Progress Note: A&P Assessment and Plan (1) Acute respiratory failure with hypoxia and hypercapnia: Code(s): J96.01 - Acute respiratory failure with hypoxia; J96.02 - Acute respiratory failure with hypercapnia Status: Acute Assessment and Plan: Presented with significant hypoxia and hypoxemia , mild hypercapnia. CTA negative for PE and bilateral ground-glass opacities consistent with atelectasis. No findings to suggest pneumonia, COPD, asthma. [place] to be consistent with obesity hypoventilation syndrome. Started on continuous BiPAP 11/18/20 due to lethargy and increased hypercapnia. She had improvement in ABG and overall alertness. Now on BiPAP when sleeping. Repeat ABG showed continued improvement of hypercapnia. Mentation has returned to baseline. Appreciate pulmonology consultation Continue home Flovent, albuterol nebs prn Arranged for BiPAP at her nursing facility with instructions for settings. Supplemental O2 during daytime with goal sats 90% or above. (2) Altered mental status: Qualifiers: Altered mental status type: unspecified Qualified Code(s): R41.82 - Altered mental status, unspecified Code(s): R41.82 - Altered mental status, unspecified Status: Acute Assessment and Plan: Resolved. She is A&O x4 today. Mental status significantly improved with respiratory improvement. Likely related to respiratory illness. UA not convincing for infection. TSH, B12, folate, ammonia WNL. Head CT with no acute findings Monitor mental status closely. (3) Insulin dependent diabetes mellitus: Status: Acute Assessment and Plan: A1c is 11.6. Blood sugars have been persistently elevated above target despite increased doses of insulin. Fasting glucose was better todayat 260, however afternoon glucose still markedly elevated at 432. She had been ordering many snacks and having several sodas per day, but this has been stopped. Blood sugars remain elevated. Accu-Cheks, sliding scale insulin, hypoglycemic protocol Increase Lantus to 63 units qHS Scheduled novolog with meals, increase to 13 units in addition to sliding scale. 15 units Novolog given this afternoon due to elevated glucose Steroids discontinued on 11/20. Anticipated improvement in blood sugars following cessation of steroids, however still markedly elevated Diabetic diet. Snacks and sodas to be avoided. Limit to 3 meals daily to achieve improved glucose control. She will benefit from Diabetes Education and dietary counseling. I called LEXX Willis on 11/21 to discuss this patient, however she is out of the office. Will proceed with consultation if the patient is still here on Wednesday. If not, she will need outpatient diabetes education. (4) COVID-19 ruled out by laboratory testing: Code(s): Z20.822 - Contact with and (suspected) exposure to COVID-19 Status: Acute Assessment and Plan: Negative test result on 11/17/2020. She has been vaccinated for COVID. Subjective Date/time seen: 11/23/20 14:44 Interval history: Date of service: 11/23/2020 Idalia Dorantes is a 75-year-old female with history of asthma, CHF, untreated ALMA, insulin-dependent type 2 diabetes mellitus, and hyperlipidemia who is seen in follow-up for acute respiratory failure and now with uncontrolled hyperglycemia. She is feeling well and has no complaints today. No respiratory symptoms. She is tolerating her BiPAP and has had no further episodes of confusion. Denies abdominal pain, nausea, or vomiting. Denies polydipsia or polyphagia. She is incontinent of urine. Reports she has not had a bowel movement the yesterday reported she did. She denies fever, chills, dizziness, lightheadedness. We talked about avoiding snacks and sodas and overall dietary modifications Review of Systems Review of Systems: All systems reviewed & are unremarkable except as noted in HPI and below Exam Narrative: Ms. Beaulieu
[2020-11-23] MEDS: INSULIN ASPART (*BKC) 100 UNITS/ML 15 UNITS SUB-Q (15:24)
[2020-11-23] MEDS: INSULIN ASPART (*BKC) 100 UNITS/ML 13 UNITS SUB-Q (17:28)
[2020-11-23 19:44] LABS: Glucose Point of Care 387 mg/dl (65-105)
[2020-11-23] MEDS: INSULIN GLARGINE (*BKC) 100 UNITS/ML 63 UNITS SUB-Q (21:45)
[2020-11-23 21:51] LABS: Glucose Point of Care 339 mg/dl (65-105)
[2020-11-24] VITALS (7 sets, daily range): BP systolic 94–139; BP diastolic 30–59; PULSE 68–91; RESP 12–22; TEMP 36.8–37.2; O2SAT 95–100
[2020-11-24 08:10] LABS: Hematocrit 36.1 % (37.0-47.0); Hemoglobin 11.5 g/dL (12.0-15.0)
[2020-11-24] MEDS: INSULIN ASPART (*BKC) 100 UNITS/ML 13 UNITS SUB-Q ×3 (08:58→17:47)
[2020-11-24] MEDS: INSULIN ASPART (*BKC) 100 UNITS/ML SUB-Q ×3 (08:59→17:48)
[2020-11-24] MEDS: MAGNESIUM OXIDE 400 MG TABLET PO (09:03)
[2020-11-24] MEDS: ASPIRIN 81 MG CHEWABLE TABLET PO (09:04)
[2020-11-24] MEDS: ATORVASTATIN 10 MG TABLET BY MOUTH (09:04)
[2020-11-24] MEDS: TOLNAFTATE 1% POWDER 45 GM BTL 1 APPLIC TOPICAL ×2 (09:04→22:49)
[2020-11-24] MEDS: FUROSEMIDE 40 MG TABLET PO (09:04)
[2020-11-24] MEDS: FLUTICASONE PROP 44 MCG (*SP) 10.6 GM 1 PUFF INHALATION ×2 (09:05→21:10)
[2020-11-24 09:21] LABS: Magnesium 1.4 mg/dL (1.6-2.3)
[2020-11-24 09:31] LABS: Glucose Point of Care 310 mg/dl (65-105)
[2020-11-24 09:50] LABS: Anion Gap 6 mmol/L (8-16); Blood Urea Nitrogen 29 mg/dL (7-17); Carbon Dioxide 32 mmol/L (22-30); Chloride 97 mmol/L (98-107); Estimated CRCL calculation 50 ml/min; Estimated Glomerular Filt Rate > 60; Glucose 331 mg/dL (65-110); Potassium 3.9 mmol/L (3.4-5.0); Sodium 135 mmol/L (137-145)
--- NOTE | 2020-11-24 10:32 | PM.IMPN ---
Progress Note: A&P Assessment and Plan (1) Acute respiratory failure with hypoxia and hypercapnia: Code(s): J96.01 - Acute respiratory failure with hypoxia; J96.02 - Acute respiratory failure with hypercapnia Status: Acute Assessment and Plan: Presented with significant hypoxia and hypoxemia , mild hypercapnia. CTA negative for PE and bilateral ground-glass opacities consistent with atelectasis. No findings to suggest pneumonia, COPD, asthma. [place] to be consistent with obesity hypoventilation syndrome. Started on continuous BiPAP 11/18/20 due to lethargy and increased hypercapnia. She had improvement in ABG and overall alertness. Now on BiPAP when sleeping. Repeat ABG showed continued improvement of hypercapnia. Mentation has returned to baseline. Appreciate pulmonology consultation Continue home Flovent, albuterol nebs prn Arranged for BiPAP at her nursing facility with instructions for settings. Supplemental O2 during daytime with goal sats 90% or above. (2) Obesity hypoventilation syndrome: Code(s): E66.2 - Morbid (severe) obesity with alveolar hypoventilation Status: Acute Assessment and Plan: See above. Continue with BiPAP when sleeping. (3) Altered mental status: Qualifiers: Altered mental status type: unspecified Qualified Code(s): R41.82 - Altered mental status, unspecified Code(s): R41.82 - Altered mental status, unspecified Status: Acute Assessment and Plan: Resolved. She is A&O x4 today. Mental status significantly improved with respiratory improvement. Likely related to respiratory illness. UA not convincing for infection. TSH, B12, folate, ammonia WNL. Head CT with no acute findings Monitor mental status closely. (4) Insulin dependent diabetes mellitus: Status: Acute Assessment and Plan: A1c is 11.6. Blood sugars have been persistently elevated above target despite increased doses of insulin. Had several readings in the 450-500s. Seems to be improving though still significantly elevated. Fasting glucose 330 today. Accu-Cheks, sliding scale insulin, hypoglycemic protocol Increased Lantus to 63 units qHS Scheduled novolog with meals, increased to 13 units in addition to high dose sliding scale. Steroids discontinued on 11/20. Anticipated improvement in blood sugars following cessation of steroids, however still markedly elevated Diabetic diet. Snacks and sodas to be avoided. Previously ordering multiple snacks each day. Limit to 3 meals daily to achieve improved glucose control. She will benefit from Diabetes Education and dietary counseling. I called LEXX Willis on 11/21 to discuss this patient, however she is out of the office. Will await [facility] consultation on Wednesday and will also proceed with dietary counseling on Wednesday as well. (5) COVID-19 ruled out by laboratory testing: Code(s): Z20.822 - Contact with and (suspected) exposure to COVID-19 Status: Acute Assessment and Plan: Negative test result on 11/17/2020. She has been vaccinated for COVID. (6) Hypomagnesemia: Code(s): E83.42 - Hypomagnesemia Status: Acute Assessment and Plan: Mag 1.4 today. Administer 3 g IV mag sulfate. Recheck tomorrow Subjective Date/time seen: 11/24/20 10:32 Interval history: Date of service: 11/23/2020 Idalia Dorantes is a 75-year-old female with history of asthma, CHF, untreated ALMA, insulin-dependent type 2 diabetes mellitus, and hyperlipidemia who is seen in follow-up for acute respiratory failure and now with uncontrolled hyperglycemia. She is doing well and has no complaints today. Continues to do well with her BiPAP. No further episodes of confusion. No shortness breath, wheezing, orthopnea, PND. No chest pain or palpitations. Blood sugars continue to be poorly controlled. She is eating 100% of her meals and today she had two diet Pepsi's on her tray. Otilio
[2020-11-24 12:01] LABS: Glucose Point of Care 388 mg/dl (65-105)
[2020-11-24] MEDS: MAGNESIUM SULFATE 3GM/D5W100ML 3 GM/100 ML BAG IVPB (12:10)
[2020-11-24] MEDS: polyethylene glycoL 3350 17 GM POWD.PACK PO (12:11)
[2020-11-24] MEDS: DOCUSATE SODIUM 100 MG CAPSULE PO (12:11)
[2020-11-24 18:56] LABS: Glucose Point of Care 380 mg/dl (65-105)
[2020-11-24] MEDS: metFORMIN HCL 500 MG TABLET PO (19:01)
[2020-11-24] MEDS: INSULIN GLARGINE (*BKC) 100 UNITS/ML 63 UNITS SUB-Q (22:41)
[2020-11-24] MEDS: INSULIN ASPART (*BKC) 100 UNITS/ML 10 UNITS SUB-Q (22:42)
[2020-11-25] VITALS (7 sets, daily range): BP systolic 116–131; BP diastolic 44–55; PULSE 67–79; RESP 16–22; TEMP 36.7–36.9; O2SAT 94–100; BMI 40.8
[2020-11-25 01:04] LABS: Glucose Point of Care 449 mg/dl (65-105)
[2020-11-25 07:02] LABS: Hematocrit 36.7 % (37.0-47.0); Hemoglobin 11.5 g/dL (12.0-15.0)
[2020-11-25 07:14] LABS: Anion Gap 6 mmol/L (8-16); Blood Urea Nitrogen 27 mg/dL (7-17); Calcium 9.6 mg/dL (8.4-10.2); Carbon Dioxide 33 mmol/L (22-30); Chloride 94 mmol/L (98-107); Estimated CRCL calculation 55 ml/min; Estimated Glomerular Filt Rate > 60; Glucose 336 mg/dL (65-110); Magnesium 1.5 mg/dL (1.6-2.3); Potassium 4.1 mmol/L (3.4-5.0); Sodium 133 mmol/L (137-145)
[2020-11-25] MEDS: FLUTICASONE PROP 44 MCG (*SP) 10.6 GM 1 PUFF INHALATION ×2 (08:22→21:11)
[2020-11-25 08:48] LABS: Glucose Point of Care 362 mg/dl (65-105)
--- NOTE | 2020-11-25 10:00 | PCNWS ---
Addendum entered by Leonela Russell RD, LDN 11/25/20 10:50: Consult for Diabetic Diet. See Nutritional Teaching Intervention. Original Note: Weekly nutritional screen. Patient is tolerating current diet with adequate intake. No nutritional needs at this time.
[2020-11-25] MEDS: metFORMIN HCL 500 MG TABLET PO ×2 (10:18→17:09)
[2020-11-25] MEDS: INSULIN ASPART (*BKC) 100 UNITS/ML SUB-Q ×3 (10:18→17:10)
[2020-11-25] MEDS: DOCUSATE SODIUM 100 MG CAPSULE PO ×2 (10:19→22:18)
[2020-11-25] MEDS: MAGNESIUM OXIDE 400 MG TABLET PO (10:19)
[2020-11-25] MEDS: polyethylene glycoL 3350 17 GM POWD.PACK PO (10:19)
[2020-11-25] MEDS: ATORVASTATIN 10 MG TABLET BY MOUTH (10:19)
[2020-11-25] MEDS: ASPIRIN 81 MG CHEWABLE TABLET PO (10:19)
[2020-11-25] MEDS: TOLNAFTATE 1% POWDER 45 GM BTL 1 APPLIC TOPICAL ×2 (10:19→22:21)
[2020-11-25] MEDS: FUROSEMIDE 40 MG TABLET PO (10:19)
[2020-11-25] MEDS: MAGNESIUM SULF 2 GM/WATER 50ML 2 GM/50 ML BAG IVPB (11:19)
[2020-11-25 12:29] LABS: Glucose Point of Care 465 mg/dl (65-105)
[2020-11-25] MEDS: INSULIN ASPART (*BKC) 100 UNITS/ML 20 UNITS SUB-Q (12:38)
[2020-11-25 13:07] LABS: EDCOVIDSCREEN Negative (Negative)
[2020-11-25 14:43] LABS: Glucose Point of Care 454 mg/dl (65-105)
--- NOTE | 2020-11-25 15:15 | PM.IMPN ---
Progress Note: A&P Assessment and Plan (1) Acute respiratory failure with hypoxia and hypercapnia: Code(s): J96.01 - Acute respiratory failure with hypoxia; J96.02 - Acute respiratory failure with hypercapnia Status: Acute Assessment and Plan: Presented with significant hypoxia and hypoxemia , mild hypercapnia. CTA negative for PE and bilateral ground-glass opacities consistent with atelectasis. No findings to suggest pneumonia, COPD, asthma. [place] to be consistent with obesity hypoventilation syndrome. Started on continuous BiPAP 11/18/20 due to lethargy and increased hypercapnia. She had improvement in ABG and overall alertness. Now on BiPAP when sleeping. Repeat ABG showed continued improvement of hypercapnia. Mentation has returned to baseline. Appreciate pulmonology consultation Continue home Flovent, albuterol nebs prn Arranged for BiPAP at her nursing facility with instructions for settings. Supplemental O2 during daytime with goal sats 90% or above. She has been maintaining adequate O2 sats on 2 L per nasal cannula (2) Obesity hypoventilation syndrome: Code(s): E66.2 - Morbid (severe) obesity with alveolar hypoventilation Status: Acute Assessment and Plan: See above. Continue with BiPAP when sleeping. (3) Altered mental status: Qualifiers: Altered mental status type: unspecified Qualified Code(s): R41.82 - Altered mental status, unspecified Code(s): R41.82 - Altered mental status, unspecified Status: Acute Assessment and Plan: Resolved. Mental status significantly improved with respiratory improvement and she has been A&O x4 Likely related to respiratory illness. UA without concerns for infection. TSH, B12, folate, ammonia WNL. Head CT with no acute findings Monitor mental status closely. (4) Insulin dependent diabetes mellitus: Status: Acute Assessment and Plan: A1c is 11.6. Blood sugars have been persistently elevated above target despite significantly increased doses of insulin. Had several readings in the 450-500s. Seems to be improving though still significantly elevated. Fasting glucose 336 today but lunchtime glucose elevated at 450. Accu-Cheks, sliding scale insulin, hypoglycemic protocol Increased Lantus to 63 units qHS Scheduled novolog with meals, increased to 21 units in addition to high dose sliding scale. Steroids discontinued on 11/20 after 2 doses. Anticipated improvement in blood sugars following cessation of steroids, however still markedly elevated Carbohydrate consistent diabetic diet. Snacks and sodas to be avoided. Previously ordering multiple snacks each day. Limit to 3 meals daily to achieve improved glucose control. Received dietary counseling today with BRIANNA Gipson Discussed case with LEXX Willis today. (5) COVID-19 ruled out by laboratory testing: Code(s): Z20.822 - Contact with and (suspected) exposure to COVID-19 Status: Acute Assessment and Plan: Negative test result on 11/17/2020. She has been vaccinated for COVID. (6) Hypomagnesemia: Code(s): E83.42 - Hypomagnesemia Status: Acute Assessment and Plan: Mag 1.5 today. Administer 2 g IV mag sulfate. Recheck tomorrow Continue home magnesium oxide 400 mg daily Subjective Date/time seen: 11/25/20 15:15 Interval history: Date of service: 11/25/2020 Idalia Dorantes is a 75-year-old female with history of asthma, CHF, untreated ALMA, insulin-dependent type 2 diabetes mellitus, and hyperlipidemia who is seen in follow-up for acute respiratory failure and now with uncontrolled hyperglycemia. She feels well. She has no complaints. She is still eating 100% of her meals. I inquired about bringing in outside food, however she has not had any visitors there is no outside snacks in the room. She denies nausea, vomiting, abdominal pain. No shortness breath, cough, chest pain. Tolerating
[2020-11-25] MEDS: INSULIN ASPART (*BKC) 100 UNITS/ML 15 UNITS SUB-Q (15:35)
[2020-11-25] MEDS: INSULIN ASPART (*BKC) 100 UNITS/ML 21 UNITS SUB-Q (17:09)
[2020-11-25 17:25] LABS: Glucose Point of Care 335 mg/dl (65-105)
[2020-11-25 20:59] LABS: Glucose Point of Care 357 mg/dl (65-105)
[2020-11-25] MEDS: INSULIN ASPART (*BKC) 100 UNITS/ML 16 UNITS SUB-Q (22:17)
[2020-11-25] MEDS: INSULIN GLARGINE (*BKC) 100 UNITS/ML 75 UNITS SUB-Q (22:18)
[2020-11-26] VITALS (8 sets, daily range): BP systolic 121–142; BP diastolic 49–58; PULSE 68–89; RESP 14–22; TEMP 36.5–36.8; O2SAT 94–100
[2020-11-26 06:51] LABS: Hematocrit 33.8 % (37.0-47.0); Hemoglobin 10.9 g/dL (12.0-15.0)
[2020-11-26 07:25] LABS: Anion Gap 3 mmol/L (8-16); Blood Urea Nitrogen 31 mg/dL (7-17); Calcium 9.3 mg/dL (8.4-10.2); Carbon Dioxide 33 mmol/L (22-30); Chloride 98 mmol/L (98-107); Estimated CRCL calculation 63 ml/min; Estimated Glomerular Filt Rate > 60; Glucose 263 mg/dL (65-110); Magnesium 1.5 mg/dL (1.6-2.3); Potassium 4.5 mmol/L (3.4-5.0); Sodium 134 mmol/L (137-145)
[2020-11-26 07:54] LABS: Glucose Point of Care 246 mg/dl (65-105)
[2020-11-26] MEDS: MAGNESIUM OXIDE 400 MG TABLET PO (08:51)
[2020-11-26] MEDS: metFORMIN HCL 500 MG TABLET PO ×2 (08:51→17:54)
[2020-11-26] MEDS: DOCUSATE SODIUM 100 MG CAPSULE PO ×2 (08:51→21:02)
[2020-11-26] MEDS: FUROSEMIDE 40 MG TABLET PO (08:51)
[2020-11-26] MEDS: ASPIRIN 81 MG CHEWABLE TABLET PO (08:52)
[2020-11-26] MEDS: polyethylene glycoL 3350 17 GM POWD.PACK PO (08:52)
[2020-11-26] MEDS: TOLNAFTATE 1% POWDER 45 GM BTL 1 APPLIC TOPICAL ×2 (08:52→21:02)
[2020-11-26] MEDS: ATORVASTATIN 10 MG TABLET BY MOUTH (08:52)
[2020-11-26] MEDS: INSULIN ASPART (*BKC) 100 UNITS/ML 21 UNITS SUB-Q ×3 (08:53→17:54)
[2020-11-26] MEDS: INSULIN ASPART (*BKC) 100 UNITS/ML SUB-Q ×3 (08:55→17:54)
[2020-11-26] MEDS: FLUTICASONE PROP 44 MCG (*SP) 10.6 GM 1 PUFF INHALATION ×2 (09:22→21:11)
[2020-11-26 10:23] LABS: Magnesium 1.5 mg/dL (1.6-2.3)
[2020-11-26 11:38] LABS: Glucose Point of Care 368 mg/dl (65-105)
[2020-11-26] MEDS: MAGNESIUM SULFATE 3GM/D5W100ML 3 GM/100 ML BAG IVPB (12:35)
--- NOTE | 2020-11-26 15:11 | PM.IMPN ---
Progress Note: A&P Assessment and Plan (1) Acute respiratory failure with hypoxia and hypercapnia: Code(s): J96.01 - Acute respiratory failure with hypoxia; J96.02 - Acute respiratory failure with hypercapnia Status: Acute Assessment and Plan: CTA negative for PE and bilateral ground-glass opacities consistent with atelectasis No findings to suggest pneumonia, COPD, asthma [place] to be consistent with obesity hypoventilation syndrome. Started on continuous BiPAP 11/18/20 due to lethargy and increased hypercapnia with improvement Now on BiPAP when sleeping Appreciate pulmonology consultation Continue home Flovent, albuterol nebs prn Arranged for BiPAP at her nursing facility with instructions for settings. Supplemental O2 during daytime with goal sats 90% or above, on 2 L (2) Obesity hypoventilation syndrome: Code(s): E66.2 - Morbid (severe) obesity with alveolar hypoventilation Status: Acute Assessment and Plan: Treatment as above Continue with BiPAP when sleeping (3) Altered mental status: Qualifiers: Altered mental status type: unspecified Qualified Code(s): R41.82 - Altered mental status, unspecified Code(s): R41.82 - Altered mental status, unspecified Status: Acute Assessment and Plan: Resolved Likely related to respiratory illness UA without concerns for infection TSH, B12, folate, ammonia WNL Head CT with no acute findings Monitor mental status closely (4) Insulin dependent diabetes mellitus: Status: Acute Assessment and Plan: A1c is 11.6 BG 240S-360s today Blood sugars have been persistently elevated above target despite significantly increased doses of insulin Continue Accu-Cheks, sliding scale insulin, hypoglycemic protocol Lantus increased to 75 units qHS on 11/25 Scheduled novolog with meals, increased to 21 units in addition to high dose sliding scale on 11/25 Steroids discontinued on 11/20 after 2 doses Carbohydrate consistent diabetic diet [employer]atband Per[employer]ator consulted Will consult DM educator (5) COVID-19 ruled out by laboratory testing: Code(s): Z20.822 - Contact with and (suspected) exposure to COVID-19 Status: Acute Assessment and Plan: Negative test result on 11/17/2020 She has been vaccinated for COVID (6) Hypomagnesemia: Code(s): E83.42 - Hypomagnesemia Status: Acute Assessment and Plan: Mag 1.5 today Will give 3 g IV mag sulfate Repeat labs in a.m. Continue home magnesium oxide 400 mg daily Subjective Date/time seen: 11/26/20 15:11 Interval history: pt seen and evaluated; no acute events overnight; no new complaints Review of Systems Review of Systems: All systems reviewed & are unremarkable except as noted in HPI and below Exam Const: General: no acute distress, alert and awake Orientation/consciousness: patient oriented x3 HENMT: Head: normocephalic and atraumatic Ears: hearing grossly normal bilaterally and external ears normal Face and sinus: face symmetric Mouth: Yes Normal oral and palatal mucosa present Eyes: Pupils: Equal, round and reactive pupils present EOM: EOMs intact bilaterally Neck: Neck: full ROM, trachea midline and no JVD Thyroid: thyroid normal Chest: Chest palpation & inspection: normal inspection of the chest Resp: Effort & Inspection: normal respiratory effort Auscultation: clear to auscultation bilaterally and diminished lung sounds Cardio: Jugular venous distension: no JVD Rate: regular rate Rhythm: regular rhythm Heart sounds: S1 normal heart sound present and S2 normal heart sound present GI: Inspection: normal to inspection and obesity GI Palp: Yes Soft to palpation Auscultation: normal bowel sounds : General: Yes no CVA tenderness Back/Spine/Pelvis: Back: no CVA tenderness Skin: General skin exam: normal color Rashes: no rashes Neuro: General: patient oriented x3 and CN's II-XI intact bilaterally Cranial nerves
--- NOTE | 2020-11-26 15:29 | PCRCNOTE ---
HOME O2 EVAL NOT NEEDED, PT RETURNING TO SNF, STAFF WILL TITRATE O2 NEEDED. PT ON SAME O2 SETTING OF 2L.
[2020-11-26 17:50] LABS: Glucose Point of Care 383 mg/dl (65-105)
[2020-11-26] MEDS: INSULIN GLARGINE (*BKC) 100 UNITS/ML 75 UNITS SUB-Q (21:00)
[2020-11-26 21:59] LABS: Glucose Point of Care 369 mg/dl (65-105)
[2020-11-27 01:59] VITALS: PULSE 69; RESP 21; O2SAT 95
[2020-11-27 06:00] VITALS: BP 137/49; PULSE 76; RESP 20; TEMP 37; O2SAT 100
[2020-11-27 06:29] LABS: Magnesium 1.6 mg/dL (1.6-2.3)
[2020-11-27 06:33] LABS: Glucose Point of Care 309 mg/dl (65-105)
[2020-11-27 07:35] VITALS: O2SAT 99
[2020-11-27 08:16] LABS: Glucose Point of Care 278 mg/dl (65-105)
[2020-11-27 08:48] VITALS: O2SAT 92
[2020-11-27] MEDS: FLUTICASONE PROP 44 MCG (*SP) 10.6 GM 1 PUFF INHALATION (08:48)
[2020-11-27] MEDS: MAGNESIUM OXIDE 400 MG TABLET PO (09:05)
[2020-11-27] MEDS: ATORVASTATIN 10 MG TABLET BY MOUTH (09:05)
[2020-11-27] MEDS: FUROSEMIDE 40 MG TABLET PO (09:05)
[2020-11-27] MEDS: ASPIRIN 81 MG CHEWABLE TABLET PO (09:05)
[2020-11-27] MEDS: metFORMIN HCL 500 MG TABLET PO (09:05)
[2020-11-27] MEDS: DOCUSATE SODIUM 100 MG CAPSULE PO (09:05)
[2020-11-27] MEDS: polyethylene glycoL 3350 17 GM POWD.PACK PO (09:05)
[2020-11-27] MEDS: INSULIN ASPART (*BKC) 100 UNITS/ML SUB-Q (09:07)
[2020-11-27] MEDS: INSULIN ASPART (*BKC) 100 UNITS/ML 21 UNITS SUB-Q (09:08)
[2020-11-27] MEDS: TOLNAFTATE 1% POWDER 45 GM BTL 1 APPLIC TOPICAL (09:09)
--- NOTE | 2020-11-27 10:25 | PC.NURSE ---
Report called to nurse at [place]
--- NOTE | 2020-11-27 11:07 | PCOTNOTE ---
Patient performed ADLs consistent with PLOF with occupational therapy, no skilled OT indiciated at this time with discharge from therapy.
[2020-11-27 11:26] LABS: Glucose Point of Care 344 mg/dl (65-105)
--- NOTE | 2020-11-27 18:02 | PM.DS ---
DS: Admitting Diagnosis Admitting Diagnosis Acute respiratory failure DS: Discharge Diagnosis Discharge Diagnosis (1) Acute respiratory failure with hypoxia and hypercapnia: Code(s): J96.01 - Acute respiratory failure with hypoxia; J96.02 - Acute respiratory failure with hypercapnia Status: Acute Assessment and Plan: Presented with significant hypoxia and hypoxemia , mild hypercapnia. CTA negative for PE and bilateral ground-glass opacities consistent with atelectasis. No findings to suggest pneumonia, COPD, asthma. [place] to be consistent with obesity hypoventilation syndrome. Started on continuous BiPAP 11/18/20 due to lethargy and increased hypercapnia. She had improvement in ABG and overall alertness with this. Continue with BiPAP when sleeping. Repeat ABG showed continued improvement of hypercapnia. Mentation returned to baseline. She was seen in consultation by pulmonology and will follow up with Dr. Fernandes as an outpatient. Continue home Flovent Arranged for BiPAP at her nursing facility with instructions for settings per Dr. Fernandes. Supplemental O2 during daytime with goal sats 90% or above, to be titrated at facility. She has been maintaining adequate O2 sats on 2 L per nasal cannula (2) Obesity hypoventilation syndrome: Code(s): E66.2 - Morbid (severe) obesity with alveolar hypoventilation Status: Acute Assessment and Plan: See above. Continue with BiPAP when sleeping. (3) Altered mental status: Qualifiers: Altered mental status type: unspecified Qualified Code(s): R41.82 - Altered mental status, unspecified Code(s): R41.82 - Altered mental status, unspecified Status: Acute Assessment and Plan: Resolved. [place] to be due to hypercapnia. Mental status significantly improved with respiratory improvement and she remainedd A&O x4 throughout remainder of hospital stay. UA without concerns for infection. TSH, B12, folate, ammonia WNL. Head CT with no acute findings (4) Insulin dependent diabetes mellitus: Status: Acute Assessment and Plan: A1c is 11.6. Blood sugars persistently elevated above target despite significantly increased doses of insulin. Had several readings in the 450-500s. Insulin was uptitrated with slow improvement in glucose levels. Accu-Cheks, sliding scale insulin, hypoglycemic protocol initiated during hospital stay Lantus slowly uptitrated to 70 units qHS; continue Scheduled NovoLog with meals 21 units Steroids discontinued on 11/20 after 2 doses. This likely contributed to her hyperglycemia. She should remain on a carbohydrate consistent diabetic diet. She was noted during her hospital stay to be ordering many snacks throughout the day. This was discouraged while attempting to maintain glycemic control. She received dietary counseling with BRIANNA Gipson and I reinforced this with her. Case discussed with LEXX Willis (5) COVID-19 ruled out by laboratory testing: Code(s): Z20.822 - Contact with and (suspected) exposure to COVID-19 Status: Acute Assessment and Plan: Negative test result on 11/17/2020. She has been vaccinated for COVID. (6) Hypomagnesemia: Code(s): E83.42 - Hypomagnesemia Status: Acute Assessment and Plan: Received IV magnesium. Continue home magnesium oxide 400 mg daily DS: Summary Hospital Course Hospital Course: Date of admission: 11/17/2020 Date of discharge: 11/27/2020 Idalia Dorantes is a 75-year-old female with history of asthma, CHF, untreated ALMA, insulin-dependent type 2 diabetes mellitus, and hyperlipidemia who presented to the emergency department on 11/17/2020 from retirement due to lethargy and change in mental status. On presentation to the emergency department, she was noted to be hypoxic with additional vital signs stable, ABG demonstrated hypoxia and hypercapnia, head CT with no acute findings and CTA negative for PE. She
== END 2020-11-27 11:45 | DRG 189 ==
LOC: ANHED 16:05 → ANH3MEDSUR 21:19 → ANHIMU 11-28 16:32
PROVIDERS: Emergency Medicine; Internal Medicine Pulmonary Disease; Nurse Practitioner Adult Health; Physician Assistant; Admitting Provider Internal Medicine; Emergency Provider Emergency Medicine; PCP Internal Medicine; Visit Provider Internal Medicine
DX: J96.01 Acute respiratory failure with hypoxia (principal); E66.2 Morbid (severe) obesity with alveolar hypoventilation; J96.22 Acute and chronic respiratory failure with hypercapnia; Z20.822 Contact with and (suspected) exposure to COVID-19; I50.9 Heart failure, unspecified; J45.909 Unspecified asthma, uncomplicated; E11.65 Type 2 diabetes mellitus with hyperglycemia; R41.82 Altered mental status, unspecified; E78.5 Hyperlipidemia, unspecified; K21.9 Gastro-esophageal reflux disease without esophagitis; E83.42 Hypomagnesemia; Z79.4 Long term (current) use of insulin; Z79.899 Other long term (current) drug therapy
CPT/HCPCS: 36415; 36600; 51701; 70450; 71045; 71275; 80048; 80053; 80307; 81001; 82140; 82375; 82607; 82746; 82805; 82948; 83036; 83050; 83605; 83735; 83880; 84443; 84484; 85014; 85018; 85025; 85027; 87426; 93005; 94002; 94003; 94640; 94762; 96365; 96366; 97110; 97161; 97165; 97530; 97535; 99285; A9270; C9803; G0378; J1100; J1815; J1956; J3475; J7030; Q9967; U0003; U0005

== ENCOUNTER 2021-04-30 14:10 | Outpatient (CLI) | payer MEDICARE, MEDICAID, SELFPAY ==
--- NOTE | 2021-04-30 15:14 | PCRCNOTE ---
PT CAME IN FOR PFT BUT UNABLE TO PERFORM. PT UNABLE TO FOLLOW DIRECTIONS. PT PANTED THROUGH OUT TEST DESPITE GOOD COACHING.
== END 2021-04-30 14:11 | disposition home or self-care (01) ==
LOC: ANHPFT 14:14
PROVIDERS: PCP Internal Medicine; Visit Provider Internal Medicine Pulmonary Disease
DX: R06.00 Dyspnea, unspecified (principal); Z53.8 Procedure and treatment not carried out for other reasons
CPT/HCPCS: 99199

== ENCOUNTER 2022-08-03 10:06 | Emergency (ER) | payer MEDICARE, MEDICAID, SELFPAY ==
--- NOTE | ~2022-08-03 | XR_ITS ---
EXAMINATION: XR finger 2nd LT min 2V DATE: 08/03/2022 11:12 INDICATION: Left hand second digit pain and swelling and discharge. TECHNIQUE: 4 views of left hand second digit were obtained. COMPARISON: None. FINDINGS: Bone alignment is normal. There are erosions of second distal phalanx with comminuted patho logic fracture. There is widening of partial visualized origins of third distal phalanx. 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 There is soft tissue swelling of the s econd digit. IMPRESSION: 1. Erosions of second distal phalanx with comminuted pathologic fracture, consistent with osteomyelit is. 2. Erosions of third distal phalanx, consistent with osteomyelitis. Reviewed, dictated and finalized at location A. IMPRESSION: 1. Erosions of second distal phalanx with comminuted pathologic fracture, consi stent with osteomyelitis. 2. Erosions of third distal phalanx, consistent with osteomyelitis.
[2022-08-03 10:09] VITALS: BP 104/55; PULSE 77; RESP 18; TEMP 36.3; O2SAT 97
[2022-08-03] MEDS: CLINDAMYCIN 600 MG/D5W 50 ML 600 MG/50 ML PIGGYBACK 100 MG IVPB (11:01)
[2022-08-03 11:11] LABS: Basophils Percent Auto 0.3 % (0.2-1.2); Eosinophils Absolute Auto 0.2 K/mm3 (0-0.3); Hematocrit 39.8 % (37.0-47.0); Hemoglobin 12.1 g/dL (12.0-15.0); Immature Granulocyte Absolute 0.05 K/mm3 (0.00-0.031); Immature Granulocyte Percent A 0.4 % (0-0.5); Lymphocytes Absolute Auto 1.24 K/mm3 (0.9-3.2); Lymphocytes Percent Auto 10.8 % (18.3-44.2); Mean Corpuscular HGB Conc 30.4 g/dl (32-36); Mean Corpuscular Hemoglobin 29.1 pg (26-34); Mean Corpuscular Volume 95.7 fl (80-100); Mean Platelet Volume 9.5 fl (7.4-10.4); Monocytes Absolute Auto 0.9 K/mm3 (0.1-0.6); Monocytes Percent Auto 7.4 % (2.6-8.5); Neutrophils Absolute Auto 9.1 K/mm3 (1.3-6.7); Neutrophils Percent Auto 79.1 % (45.5-73.1); Platelet Count Result 520 k/mm3 (150-375); Red Blood Count 4.16 M/mm3 (4.2-5.4); Red Cell Distribution Width 16.8 % (11.5-14.5); White Blood Count 11.5 K/mm3 (4.5-10.0)
[2022-08-03 11:14] VITALS: BP 94/46; PULSE 74; O2SAT 99
[2022-08-03] MEDS: LACTATED RINGERS 1,000 ML 999 ML IV CONT (11:18)
[2022-08-03 11:20] LABS: Anion Gap 6 mmol/L (8-16); Blood Urea Nitrogen 45 mg/dL (7-17); Carbon Dioxide 39 mmol/L (22-30); Chloride 93 mmol/L (98-107); Estimated Glomerular Filt Rate 40; Glucose 117 mg/dL (65-110); Potassium 3.5 mmol/L (3.4-5.0); Sodium 138 mmol/L (137-145)
--- NOTE | 2022-08-03 13:08 | ED.WOUNDLAC ---
HPI - Wound/Laceration General Chief Complaint: Wound/Laceration Stated Complaint: infected finger Time Seen by Provider: 08/03/22 10:29 History of Present Illness HPI narrative: Per patient and EMS report, patient had been chewing her nails, and noted some swelling and redness that has been worsening despite being on oral antibiotics. Related Data Home Medications Medication Instructions Recorded Confirmed acetaminophen 325 mg capsule 325 mg PO Q6H PRN 04/28/19 05/01/19 aspirin 81 mg tablet,delayed 81 mg PO DAILY 04/28/19 05/01/19 release (Adult Aspirin Regimen) atorvastatin 10 mg tablet 10 mg PO DAILY 04/28/19 05/01/19 calcium carbonate 600 mg calcium 600 mg PO DAILY 04/28/19 05/01/19 (1,500 mg) tablet (Calcium) fenofibrate micronized 134 mg 134 mg PO DAILY 04/28/19 05/01/19 capsule insulin aspar prot-insulin aspart 5 unit subcut BID 04/28/19 05/01/19 100 unit/mL (70-30) subcutaneous pen (Novolog Mix 70-30FlexPen U-100) insulin glargine 100 unit/mL (3 10 unit subcut DAILY 04/28/19 05/01/19 mL) subcutaneous pen (Lantus Solostar U-100 Insulin) menthol-zinc oxide 0.5 %-20.65 % each topical 04/28/19 05/01/19 topical ointment (DermaSeptin) nystatin 100,000 unit/gram topical 1 applic topical BID 04/28/19 05/01/19 powder (Nystop) olanzapine 2.5 mg tablet 2.5 mg PO DAILY 04/28/19 05/01/19 polyethylene glycol 3350 17 17 gm PO DAILY 04/28/19 05/01/19 gram/dose oral powder polyethylene glycol 3350 17 17 gm PO DAILY 04/28/19 05/01/19 gram/dose oral powder (Miralax) fluticasone fur. 100 mcg-umeclid 1 inhalation inhalation DAILY 05/01/19 05/01/19 62.5 mcg-vilant 25 mcg inhalat.powder (Trelegy Ellipta) omeprazole 40 mg capsule,delayed See Rx Instructions PO DAILY 05/01/19 05/01/19 release atorvastatin 10 mg tablet 10 mg DAILY 11/17/20 12/30/20 fenofibrate nanocrystallized 145 145 mg PO HS 11/17/20 12/30/20 mg tablet furosemide 40 mg tablet 40 mg DAILY 11/17/20 12/30/20 omeprazole 20 mg capsule,delayed 20 mg DAILY 11/17/20 12/30/20 release acetaminophen 650 mg tablet 650 mg PO Q4H PRN Pain, Mild 11/18/20 12/30/20 aspirin 81 mg tablet 81 mg PO DAILY 11/18/20 12/30/20 glucagon 1 mg solution for 1 mg IM ONCE PRN Hypoglycemia 11/18/20 12/30/20 injection (GlucaGen HypoKit) linaclotide 72 mcg capsule 72 mcg PO DAILY 11/18/20 12/30/20 (Linzess) magnesium 200 mg tablet 400 mg PO DAILY 11/18/20 12/30/20 polyethylene glycol 3350 17 gram 17 g PO DAILY PRN Constipation 11/18/20 12/30/20 oral powder packet sennosides 8.6 mg tablet (senna) 8.6 mg PO BID 11/18/20 12/30/20 Allergies Allergy/AdvReac Type Severity Reaction Status Date / Time propofol Allergy Unknown Verified 08/03/22 10:23 Review of Systems Review of Systems: CONST: No fever. HEENT: No sore throat C/V: No chest pain RESP: No cough GI: No abdominal pain : No dysuria. M/S: Left index pain/redness SKIN: Swelling to finger with purulent drainage NEURO: [No headache or focal numbness or weakness] PSYCH: [No depression] [facility] Past Medical History Medical History Asthma Presumed as the patient is on Flovent CHF (congestive heart failure) Implied as patient is on Lasix Chronic respiratory failure with hypercapnia Chronic respiratory failure with hypoxia and hypercapnia GERD (gastroesophageal reflux disease) Hyperlipidemia 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 Never smoked tobacco Obesity hypoventilation syndrome Obstructive sleep apnea Surgical History Surgical History Surgical history unknown Family History Family History Other Unknown family medical history Social History Social History (System 02/09/22 @ 12:09 by Chase Drake Smoking status: Never smoker Alcohol intake: unknown Substance use: never
[2022-08-03 13:21] VITALS: BP 133/68; PULSE 68; O2SAT 98
[2022-08-03 13:47] VITALS: BP 110/52; PULSE 78; O2SAT 95
== END 2022-08-03 13:55 | disposition short-term general hospital (02) ==
PROVIDERS: Emergency Provider Emergency Medicine; PCP Internal Medicine
DX: L08.9 Local infection of the skin and subcutaneous tissue, unspecified (principal); I50.9 Heart failure, unspecified; J96.12 Chronic respiratory failure with hypercapnia; J96.11 Chronic respiratory failure with hypoxia; K21.9 Gastro-esophageal reflux disease without esophagitis; E78.5 Hyperlipidemia, unspecified; E11.9 Type 2 diabetes mellitus without complications; E66.2 Morbid (severe) obesity with alveolar hypoventilation; Z68.39 Body mass index [BMI] 39.0-39.9, adult; Z79.84 Long term (current) use of oral hypoglycemic drugs; Z79.4 Long term (current) use of insulin; Z79.82 Long term (current) use of aspirin
CPT/HCPCS: 36415; 73140; 80048; 85025; 96365; 96366; 96367; 99285; J3370; J7120

== ENCOUNTER 2023-01-05 19:45 | Emergency (ER) | payer MEDICARE, MEDICAID, SELFPAY ==
[2023-01-05 19:57] VITALS: BP 130/60; PULSE 84; RESP 20; TEMP 37; O2SAT 100
[2023-01-05 19:59] LABS: Glucose Point of Care > 500 mg/dl (65-105)
[2023-01-05] MEDS: SODIUM CHLORIDE 0.9% IV 1,000 ML 999 ML IV CONT (20:15)
[2023-01-05 20:16] LABS: Basophils Percent Auto 0.6 % (0.2-1.2); Eosinophils Absolute Auto 0.1 K/mm3 (0-0.3); Eosinophils Percent Auto 2.5 % (0-4.4); Hematocrit 36.5 % (37.0-47.0); Hemoglobin 10.9 g/dL (12.0-15.0); Immature Granulocyte Absolute 0.04 K/mm3 (0.00-0.031); Immature Granulocyte Percent A 0.8 % (0-0.5); Lymphocytes Absolute Auto 0.85 K/mm3 (0.9-3.2); Lymphocytes Percent Auto 16.1 % (18.3-44.2); Mean Corpuscular HGB Conc 29.9 g/dl (32-36); Mean Corpuscular Hemoglobin 29.4 pg (26-34); Mean Corpuscular Volume 98.4 fl (80-100); Monocytes Absolute Auto 0.6 K/mm3 (0.1-0.6); Monocytes Percent Auto 11.2 % (2.6-8.5); Neutrophils Absolute Auto 3.6 K/mm3 (1.3-6.7); Neutrophils Percent Auto 68.8 % (45.5-73.1); Platelet Count Result 401 k/mm3 (150-375); Red Blood Count 3.71 M/mm3 (4.2-5.4); Red Cell Distribution Width 15.5 % (11.5-14.5); White Blood Count 5.3 K/mm3 (4.5-10.0)
--- NOTE | 2023-01-05 20:23 | ED.RECABL ---
HPI - Recheck/Abnormal Lab/Rx General Chief Complaint: Recheck/Abnormal Lab/Rx Stated Complaint: HIGH BLOOD GLUCOSE ALL DAY Time Seen by Provider: 01/05/23 20:04 History of Present Illness HPI narrative: Patient is a 77-year-old female with a history of insulin-dependent diabetes presenting with hyperglycemia. Patient resides in a nursing facility and she was noted to have a high [id number] glucose this morning but then she was not given anything to treat this. Her glucose remained high when checking it this evening so they sent her in for evaluation. On my evaluation, the patient denies any complaints. She states that she feels at her baseline. She denies any pain. States that she is always on oxygen. No shortness of breath or chest pain. She denies dysuria, abdominal pain, nausea or vomiting, diarrhea. She has no complaints or concerns at this time. Related Data Home Medications Medication Instructions Recorded Confirmed acetaminophen 325 mg capsule 325 mg PO Q6H PRN 04/28/19 05/01/19 aspirin 81 mg tablet,delayed 81 mg PO DAILY 04/28/19 05/01/19 release (Adult Aspirin Regimen) atorvastatin 10 mg tablet 10 mg PO DAILY 04/28/19 05/01/19 calcium carbonate 600 mg calcium 600 mg PO DAILY 04/28/19 05/01/19 (1,500 mg) tablet (Calcium) fenofibrate micronized 134 mg 134 mg PO DAILY 04/28/19 05/01/19 capsule insulin aspar prot-insulin aspart 5 unit subcut BID 04/28/19 05/01/19 100 unit/mL (70-30) subcutaneous pen (Novolog Mix 70-30FlexPen U-100) insulin glargine 100 unit/mL (3 10 unit subcut DAILY 04/28/19 05/01/19 mL) subcutaneous pen (Lantus Solostar U-100 Insulin) menthol-zinc oxide 0.5 %-20.65 % each topical 04/28/19 05/01/19 topical ointment (DermaSeptin) nystatin 100,000 unit/gram topical 1 applic topical BID 04/28/19 05/01/19 powder (Nystop) olanzapine 2.5 mg tablet 2.5 mg PO DAILY 04/28/19 05/01/19 polyethylene glycol 3350 17 17 gm PO DAILY 04/28/19 05/01/19 gram/dose oral powder polyethylene glycol 3350 17 17 gm PO DAILY 04/28/19 05/01/19 gram/dose oral powder (Miralax) fluticasone fur. 100 mcg-umeclid 1 inhalation inhalation DAILY 05/01/19 05/01/19 62.5 mcg-vilant 25 mcg inhalat.powder (Trelegy Ellipta) omeprazole 40 mg capsule,delayed See Rx Instructions PO DAILY 05/01/19 05/01/19 release atorvastatin 10 mg tablet 10 mg DAILY 11/17/20 12/30/20 fenofibrate nanocrystallized 145 145 mg PO HS 11/17/20 12/30/20 mg tablet furosemide 40 mg tablet 40 mg DAILY 11/17/20 12/30/20 omeprazole 20 mg capsule,delayed 20 mg DAILY 11/17/20 12/30/20 release acetaminophen 650 mg tablet 650 mg PO Q4H PRN Pain, Mild 11/18/20 12/30/20 aspirin 81 mg tablet 81 mg PO DAILY 11/18/20 12/30/20 glucagon 1 mg solution for 1 mg IM ONCE PRN Hypoglycemia 11/18/20 12/30/20 injection (GlucaGen HypoKit) linaclotide 72 mcg capsule 72 mcg PO DAILY 11/18/20 12/30/20 (Linzess) magnesium 200 mg tablet 400 mg PO DAILY 11/18/20 12/30/20 polyethylene glycol 3350 17 gram 17 g PO DAILY PRN Constipation 11/18/20 12/30/20 oral powder packet sennosides 8.6 mg tablet (senna) 8.6 mg PO BID 11/18/20 12/30/20 Allergies Allergy/AdvReac Type Severity Reaction Status Date / Time propofol Allergy Unknown Verified 08/03/22 10:23 Review of Systems Review of Systems: All systems reviewed & are unremarkable except as noted in HPI and below PMFSH Past Medical History Medical History Asthma Presumed as the patient is on Flovent CHF (congestive heart failure) Implied as patient is on Lasix Chronic respiratory failure with hypercapnia Chronic respiratory failure with hypoxia and hypercapnia GERD (gastroesophageal reflux disease) Hyperlipidemia 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
[2023-01-05 20:34] LABS: Appearance Urine Clear (Clear); Bilirubin Urine Negative (Negative); Blood Urine Negative (Negative); Color Urine Yellow (Yellow); Glucose Urine UA 3+ mg/dL (Negative); Ketones Urine Negative (Negative); Leukocyte Esterase Ur Negative LEU/UL (Negative); Nitrate Urine Negative (Negative); Protein Urine Negative (Negative); Specific Grav Ur 1.026 (1.001-1.035); Urobilinogen Urine 0.2 mg/dL (<2.0)
[2023-01-05 20:36] LABS: Fractional Inspired Oxygen 28 %; HCO3 VBG 31.5 mEq/l (24.0-30.0); PCO2 VBG 51.6 mmHg (42.0-48.0); PO2 VBG 62.3 mmHg (35.0-45.0)
[2023-01-05 20:37] LABS: Add Urine Microscopic? NO
[2023-01-05 20:38] LABS: Device NASAL CANNULA; pH VBG 7.403 (7.300-7.400)
[2023-01-05 20:39] LABS: Alanine Aminotransferase 21 U/L (6-35); Albumin Level 3.9 g/dL (3.5-5.1); Alkaline Phosphatase 63 U/L (38-126); Anion Gap 10 mmol/L (8-16); Aspartate Amino Transferase 30 U/L (14-36); Bilirubin,Total 0.5 mg/dL (0.2-1.3); Blood Urea Nitrogen 42 mg/dL (7-17); Calcium 8.8 mg/dL (8.4-10.2); Carbon Dioxide 31 mmol/L (22-30); Chloride 88 mmol/L (98-107); Estimated Glomerular Filt Rate 40; Glucose 624 mg/dL (65-110); Magnesium 2.1 mg/dL (1.6-2.3); Phosphorus 4.8 mg/dL (2.5-4.5); Potassium 3.8 mmol/L (3.4-5.0); Sodium 129 mmol/L (137-145)
[2023-01-05 20:43] LABS: Anisocytosis 1+ (NORMAL); Basophilic Stippling 1+ (NORMAL); Hypochromasia 1+ (NORMAL); Schistocytes None Seen (NORMAL)
[2023-01-05 20:46] LABS: Beta-Hydroxybutyrate/Acetoacetate 0.08 mmol/L (0.02-0.27)
[2023-01-05] MEDS: INSULIN HUMAN REGULAR (*BKC) 100 UNITS/ML 10 UNITS SUB-Q (20:51)
[2023-01-05 22:18] VITALS: BP 139/84; PULSE 88; RESP 20; O2SAT 98
[2023-01-05 22:21] LABS: Glucose Point of Care 433 mg/dl (65-105)
== END 2023-01-05 22:32 ==
PROVIDERS: Emergency Medicine; Emergency Provider Emergency Medicine; PCP Internal Medicine
DX: E11.65 Type 2 diabetes mellitus with hyperglycemia (principal); J45.909 Unspecified asthma, uncomplicated; I50.9 Heart failure, unspecified; J96.12 Chronic respiratory failure with hypercapnia; J96.11 Chronic respiratory failure with hypoxia; E78.5 Hyperlipidemia, unspecified; G47.14 Hypersomnia due to medical condition; E66.2 Morbid (severe) obesity with alveolar hypoventilation; Z68.42 Body mass index [BMI] 45.0-49.9, adult; K21.9 Gastro-esophageal reflux disease without esophagitis; Z79.82 Long term (current) use of aspirin; Z79.4 Long term (current) use of insulin
CPT/HCPCS: 36415; 80053; 81003; 82010; 82803; 82948; 83735; 84100; 85025; 96360; 99283; J1815; J7030

== ENCOUNTER 2023-03-16 18:56 | Emergency (ER) | payer MEDICARE, MEDICAID, SELFPAY ==
[2023-03-16 18:53] VITALS: BP 126/54; PULSE 80; RESP 23; TEMP 36.7; O2SAT 97
--- NOTE | 2023-03-16 19:02 | ECG_ITS ---
Measurements Intervals [place] Rate: 80 P: 69 CA: 177 QRS: -35 QRSD: 141 T: -1 QT: 422 QTc: 487 Interpretive Statements SINUS RHYTHM LEFT ANTERIOR FASCICULAR BLOCK RIGHT BUNDLE BRANCH BLOCK ABNORMAL ECG Electronically Signed On 03-17-2023 10:35:03 [employer] by Faustnio Fallon M.D.
[2023-03-16 19:10] LABS: Glucose Point of Care > 500 mg/dl (65-105)
--- NOTE | 2023-03-16 19:13 | PC.NURSE ---
Patient presents with a distended abdomen that is non-tender. Patient states that this is normal.
--- NOTE | 2023-03-16 19:23 | ED.GENADULT ---
HPI - General Adult General Chief complaint: Recheck/Abnormal Lab/Rx Stated complaint: HYPERGLYCEMIA Time Seen by Provider: 03/16/23 19:15 History of Present Illness HPI narrative: Since the emergency department from nursing facility by EMS. Sent emergency department with reported hyperglycemia. She is unsure what her sugars have been. She is unsure what her sugars are baseline she denies any complaints. From previous records it appears that she is at the emergency department for elevated blood sugars in the past. Today she is very pleasant in no distress. Vital signs are stable. Related Data Home Medications Medication Instructions Recorded Confirmed acetaminophen 325 mg capsule 325 mg PO Q6H PRN 04/28/19 05/01/19 aspirin 81 mg tablet,delayed 81 mg PO DAILY 04/28/19 05/01/19 release (Adult Aspirin Regimen) atorvastatin 10 mg tablet 10 mg PO DAILY 04/28/19 05/01/19 calcium carbonate 600 mg calcium 600 mg PO DAILY 04/28/19 05/01/19 (1,500 mg) tablet (Calcium) fenofibrate micronized 134 mg 134 mg PO DAILY 04/28/19 05/01/19 capsule insulin aspar prot-insulin aspart 5 unit subcut BID 04/28/19 05/01/19 100 unit/mL (70-30) subcutaneous pen (Novolog Mix 70-30FlexPen U-100) insulin glargine 100 unit/mL (3 10 unit subcut DAILY 04/28/19 05/01/19 mL) subcutaneous pen (Lantus Solostar U-100 Insulin) menthol-zinc oxide 0.5 %-20.65 % each topical 04/28/19 05/01/19 topical ointment (DermaSeptin) nystatin 100,000 unit/gram topical 1 applic topical BID 04/28/19 05/01/19 powder (Nystop) olanzapine 2.5 mg tablet 2.5 mg PO DAILY 04/28/19 05/01/19 polyethylene glycol 3350 17 17 gm PO DAILY 04/28/19 05/01/19 gram/dose oral powder polyethylene glycol 3350 17 17 gm PO DAILY 04/28/19 05/01/19 gram/dose oral powder (Miralax) fluticasone fur. 100 mcg-umeclid 1 inhalation inhalation DAILY 05/01/19 05/01/19 62.5 mcg-vilant 25 mcg inhalat.powder (Trelegy Ellipta) omeprazole 40 mg capsule,delayed See Rx Instructions PO DAILY 05/01/19 05/01/19 release atorvastatin 10 mg tablet 10 mg DAILY 11/17/20 12/30/20 fenofibrate nanocrystallized 145 145 mg PO HS 11/17/20 12/30/20 mg tablet furosemide 40 mg tablet 40 mg DAILY 11/17/20 12/30/20 omeprazole 20 mg capsule,delayed 20 mg DAILY 11/17/20 12/30/20 release acetaminophen 650 mg tablet 650 mg PO Q4H PRN Pain, Mild 11/18/20 12/30/20 aspirin 81 mg tablet 81 mg PO DAILY 11/18/20 12/30/20 glucagon 1 mg solution for 1 mg IM ONCE PRN Hypoglycemia 11/18/20 12/30/20 injection (GlucaGen HypoKit) linaclotide 72 mcg capsule 72 mcg PO DAILY 11/18/20 12/30/20 (Linzess) magnesium 200 mg tablet 400 mg PO DAILY 11/18/20 12/30/20 polyethylene glycol 3350 17 gram 17 g PO DAILY PRN Constipation 11/18/20 12/30/20 oral powder packet sennosides 8.6 mg tablet (senna) 8.6 mg PO BID 11/18/20 12/30/20 Allergies Allergy/AdvReac Type Severity Reaction Status Date / Time propofol Allergy Unknown Verified 08/03/22 10:23 Review of Systems Review of Systems: Negative except for what is documented in the [facility] Past Medical History Medical History Asthma Presumed as the patient is on Flovent CHF (congestive heart failure) Implied as patient is on Lasix Chronic respiratory failure with hypercapnia Chronic respiratory failure with hypoxia and hypercapnia GERD (gastroesophageal reflux disease) Hyperlipidemia 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 Never smoked tobacco Obesity hypoventilation syndrome Obstructive sleep apnea Surgical History Surgical History Surgical history unknown Family History Family History Mother Family history of cardiovascular disease Father Family history of lung cancer Other Unknown family medical history Social Histo
[2023-03-16] MEDS: INSULIN HUMAN REGULAR (*BKC) 100 UNITS/ML 10 UNITS SUB-Q ×2 (19:27→21:04)
[2023-03-16 19:59] LABS: Basophils Percent Auto 0.5 % (0.2-1.2); Eosinophils Absolute Auto 0.1 K/mm3 (0-0.3); Eosinophils Percent Auto 1.4 % (0-4.4); Hematocrit 36.8 % (37.0-47.0); Hemoglobin 11.3 g/dL (12.0-15.0); Immature Granulocyte Absolute 0.03 K/mm3 (0.00-0.031); Immature Granulocyte Percent A 0.5 % (0-0.5); Lymphocytes Absolute Auto 0.87 K/mm3 (0.9-3.2); Lymphocytes Percent Auto 13.3 % (18.3-44.2); Mean Corpuscular HGB Conc 30.7 g/dl (32-36); Mean Corpuscular Hemoglobin 28.8 pg (26-34); Mean Corpuscular Volume 93.6 fl (80-100); Mean Platelet Volume 10.3 fl (7.4-10.4); Monocytes Absolute Auto 0.6 K/mm3 (0.1-0.6); Monocytes Percent Auto 8.4 % (2.6-8.5); Neutrophils Percent Auto 75.9 % (45.5-73.1); Platelet Count Result 462 k/mm3 (150-375); Red Blood Count 3.93 M/mm3 (4.2-5.4); Red Cell Distribution Width 17.8 % (11.5-14.5); White Blood Count 6.5 K/mm3 (4.5-10.0)
[2023-03-16 20:18] LABS: Alanine Aminotransferase 27 U/L (6-35); Albumin Level 4.1 g/dL (3.5-5.1); Alkaline Phosphatase 85 U/L (38-126); Anion Gap 13 mmol/L (8-16); Aspartate Amino Transferase 43 U/L (14-36); Bilirubin,Total 0.4 mg/dL (0.2-1.3); Blood Urea Nitrogen 30 mg/dL (7-17); Calcium 9.1 mg/dL (8.4-10.2); Carbon Dioxide 29 mmol/L (22-30); Chloride 88 mmol/L (98-107); Estimated Glomerular Filt Rate 48; Glucose 607 mg/dL (65-110); Magnesium 2.1 mg/dL (1.6-2.3); Phosphorus 4.3 mg/dL (2.5-4.5); Potassium 3.7 mmol/L (3.4-5.0); Sodium 130 mmol/L (137-145)
[2023-03-16 20:20] LABS: Beta-Hydroxybutyrate/Acetoacetate 0.09 mmol/L (0.02-0.27)
[2023-03-16 20:57] VITALS: BP 160/108; PULSE 82; RESP 17; O2SAT 96
[2023-03-16 21:04] LABS: Glucose Point of Care 410 mg/dl (65-105)
[2023-03-16 21:10] LABS: Appearance Urine Clear (Clear); Bacteria Urine 4+ /hpf; Bilirubin Urine Negative (Negative); Blood Urine Negative (Negative); Color Urine Yellow (Yellow); Glucose Urine UA 3+ mg/dL (Negative); Ketones Urine Negative (Negative); Leukocyte Esterase Ur 1+ LEU/UL (Negative); Nitrate Urine Negative (Negative); Non Pathogenic Casts 0-2; Protein Urine Negative (Negative); RBC Urine 0-2 /hpf (0-2); Specific Grav Ur 1.022 (1.001-1.035); Squamous Epithelial Cell Urine None seen /hpf (Few); Urobilinogen Urine 0.2 mg/dL (<2.0); pH Urine 6.5 (5.0-9.0)
[2023-03-16 21:26] LABS: Add Urine Microscopic? YES
[2023-03-16 23:14] LABS: Glucose Point of Care 346 mg/dl (65-105)
--- NOTE | 2023-03-16 23:16 | PC.NURSE ---
Per EDP cancel 5 units of insulin sub-q.
[2023-03-16 23:17] VITALS: BP 132/61; PULSE 87; RESP 17; O2SAT 98
--- NOTE | 2023-03-16 23:57 | PC.NURSE ---
Attempted to call [facility] three time and no answer each time.
[2023-03-17 00:22] VITALS: BP 113/70; PULSE 93; RESP 15; O2SAT 99
[2023-03-17 01:31] VITALS: BP 126/74; PULSE 91; RESP 19; TEMP 36.6; O2SAT 95
== END 2023-03-17 01:32 ==
PROVIDERS: Emergency Provider Emergency Medicine
DX: E11.65 Type 2 diabetes mellitus with hyperglycemia (principal); Z79.4 Long term (current) use of insulin; J45.909 Unspecified asthma, uncomplicated; I50.9 Heart failure, unspecified; K21.9 Gastro-esophageal reflux disease without esophagitis; E78.5 Hyperlipidemia, unspecified; G47.30 Sleep apnea, unspecified; J96.12 Chronic respiratory failure with hypercapnia; J96.11 Chronic respiratory failure with hypoxia; R82.998 Other abnormal findings in urine
CPT/HCPCS: 36415; 80053; 81001; 82010; 82948; 83735; 84100; 85025; 87077; 87086; 87186; 93005; 99283; J1815

== ENCOUNTER 2023-11-02 20:47 | Inpatient (IN) | payer MEDICARE, MEDICAID, SELFPAY ==
[2023-11-02] VITALS (16 sets, daily range): BP systolic 48–125; BP diastolic 34–97; PULSE 53–112; RESP 13–23; O2SAT 90–100; BMI 38.0
--- NOTE | ~2023-11-02 | XR_ITS ---
Portable chest x-ray Comparison: 11/02/2023 Clinical History: Intubated Findings: Endotracheal tube and NG tube are in satisfactory positions. Probable small bilateral pleu ral effusions with moderate pulmonary edema pattern. Cardiomediastinal silhouette is stable. Bones a nd soft tissues are unremarkable. Impression: Small pleural effusions with moderate pulmonary edema. Support tubes, as above. Stable cardiomegaly. Reviewed, dictated and finalized at location . Impression: Small pleural effusions with moderate pulmonary edema. Support tubes, as above. Stable cardiomegaly.
--- NOTE | ~2023-11-02 | CT_ITS ---
Non-contrast Head CT History: Cardiac arrest COMPARISON: 11/17/2020 Technique: Axial non-contrast imaging of the brain was performed. Dose reduction technique was used on this scan by utilizing automated exposure control and iterative reconstruction technique. The dose -length product (DLP) was 681.00 mGy-cm. Findings: There is no evidence of intracranial hemorrhage, mass lesion, or acute infarct. Brain par enchyma appears normal. The ventricles and subarachnoid spaces are normal in size. The calvarium ap pears normal. The visualized paranasal sinuses and mastoid air cells are clear. Impression: No significant abnormality seen. Reviewed, dictated and finalized at location . Impression: No significant abnormality seen.
--- NOTE | ~2023-11-02 | CT_ITS ---
EXAMINATION: CT brain wo con DATE: 11/06/2023 11:30 INDICATION: Anoxic brain injury. TECHNIQUE: Computed tomography (CT) of the head was performed without intravenous contrast. The mA wa s adjusted according to patient size. Iterative reconstruction technique was employed. The dose-lengt h product was 605.33 mGy-cm. COMPARISON: Head CT 11/03/2023 FINDINGS: There is diffuse hypodensity of the campbell matter. There is no intracranial hemorrhage or abn ormal mass lesion. The ventricles are normal in size. There are likely changes of ocular lens replace ment surgeries. There is mucosal thickening in the paranasal sinuses. The mastoid air cells are gio l. There is cerumen in left external auditory canal. IMPRESSION: 1. Diffuse hypodensity of the campbell matter, consistent with infarct (anoxic brain injury). Reviewed, dictated and finalized at location A. IMPRESSION: 1. Diffuse hypodensity of the campbell matter, consistent with infarct (anoxic brai n injury).
--- NOTE | ~2023-11-02 | XR_ITS ---
Portable chest x-ray Comparison: 11/07/2023 Clinical History: Respiratory failure Findings: Endotracheal tube and NG tube and right IJ line are in place. A moderate to large left ple ural effusion. Mild haziness right lung base noted. Cardiomediastinal silhouette is stable. Bones an d soft tissues are unremarkable. Impression: Support tubes, as above. Moderate to large left pleural effusion. Mild haziness right lung base, nonspecific. Reviewed, dictated and finalized at location M. Impression: Support tubes, as above. Moderate to large left pleural effusion. Mild haziness right lung base, nonspecific.
--- NOTE | ~2023-11-02 | XR_ITS ---
EXAMINATION: XR chest 1V portable DATE: 11/06/2023 05:26 INDICATION: Respiratory failure. TECHNIQUE: A single frontal view of the chest was obtained. COMPARISON: Chest single view 11/05/2023, chest CT 11/17/2020 FINDINGS: There are small pleural effusions. There are airspace opacities at right lung base and in l eft mid and lower lung zones. No pneumothorax. Cardiomegaly is noted. There are prominent pericardial fat pads. The endotracheal tube tip is 2.2 cm above the rojelio. The nasogastric tube tip is beyond t he inferior margin of the radiograph, but at least to the stomach. A right internal jugular central v enous catheter is seen with tip in the right atrium. IMPRESSION: 1. Airspace opacities at right lung base and in left mid and lower lung zones without interval improv ement, consistent with atelectasis versus pneumonia. 2. Small pleural effusions. 3. Cardiomegaly. Reviewed, dictated and finalized at location A. IMPRESSION: 1. Airspace opacities at right lung base and in left mid and lower lung zones w ithout interval improvement, consistent with atelectasis versus pneumonia. 2. Small pleural effusions. 3. Cardiomegaly.
--- NOTE | ~2023-11-02 | XR_ITS ---
Portable chest x-ray Comparison: 11/04/2023 Clinical History: Respiratory failure Findings: Endotracheal tube, NG tube, and right IJ line are in place. Moderate left pleural effusion and small right pleural effusion are present. There is moderate pulmonary edema pattern. Cardiomedi astinal silhouette is stable. Bones and soft tissues are unremarkable. Impression: Moderate left pleural effusion and small right pleural effusion, with moderate pulmonary edema patter n. Support tubes, as above. Reviewed, dictated and finalized at location . Impression: Moderate left pleural effusion and small right pleural effusion, with moderate pulmonary edema pattern. Support tubes, as above.
--- NOTE | ~2023-11-02 | XR_ITS ---
Portable chest x-ray Comparison: 11/03/2023 Clinical History: Respiratory failure Findings: Endotracheal tube, NG tube, and right IJ line are in place. Probable small left pleural ef fusion and left basilar airspace disease. Right lung essentially clear. Cardiomediastinal silhouette is stable. Bones and soft tissues are unremarkable. Impression: Probable small left pleural effusion with left basilar pulmonary edema/atelectasis versus pneumonia. Correlate clinically. Support tubes, as above. Reviewed, dictated and finalized at [facility]. Impression: Probable small left pleural effusion with left basilar pulmonary edema/atelecta sis versus pneumonia. Correlate clinically. Support tubes, as above.
--- NOTE | ~2023-11-02 | XR_ITS ---
Portable chest x-ray Comparison: 11/06/2023 Clinical History: Respiratory failure Findings: Endotracheal tube, NG tube, and right IJ line are in place. Small to moderate left pleural effusion and small right pleural effusion are present. There is bibasilar pulmonary edema/atelectasi s. Cardiomediastinal silhouette is stable. Bones and soft tissues are unremarkable. Impression: Bibasilar pulmonary edema/atelectasis, with [id number] left pleural effusion and small right p leural effusion. Support tubes, as above. Reviewed, dictated and finalized at location [facility]. Impression: Bibasilar pulmonary edema/atelectasis, with [id number] left pleural effu polo and small right pleural effusion. Support tubes, as above.
--- NOTE | ~2023-11-02 | US_ITS ---
EXAMINATION: US abdomen limited DATE: 11/05/2023 14:17 INDICATION: Transaminitis. TECHNIQUE: Multiple grayscale and Doppler ultrasound images of the abdomen were obtained. COMPARISON: None FINDINGS: The visualized portions of the head and body of the pancreas are normal. The liver is gio l without focal lesion. There is no liver surface nodularity. There is normal flow in main portal vei n. The gallbladder is normal in size. No gallstones or gallbladder wall thickening. There is no sonog raphic Schneider's sign. The common duct is normal and measures 3 mm. IMPRESSION: 1. No etiology for abnormal liver function tests. Reviewed, dictated and finalized at location [facility].
--- NOTE | ~2023-11-02 | XR_ITS ---
EXAMINATION: XR chest port-a-cath/central DATE: 11/03/2023 09:37 INDICATION: Central line placement. TECHNIQUE: A single frontal view of the chest was obtained. COMPARISON: Chest single view at 5:03 AM FINDINGS: Sensitivity is decreased by obesity. The patient is rotated to her left. There are airspace opacities in all lung zones bilaterally, right worse than left. There is likely a small right pleura l effusion. No pneumothorax. Cardiomegaly is noted. There are prominent pericardial fat pads, which o bscures evaluation for a left pleural effusion. The endotracheal tube tip is 3.7 cm above the rojelio. A right internal jugular central venous catheter is seen with tip at the superior cavoatrial junctio n. The nasogastric tube tip is beyond the inferior margin of the radiograph, but at least to the stom ach. There is a pacer wire in right ventricle. IMPRESSION: 1. Worsening diffuse lung disease, right worse than left, consistent with pulmonary edema versus pneu monia. 2. Stable small right pleural effusion. 3. Cardiomegaly. Reviewed, dictated and finalized at location [facility]. IMPRESSION: 1. Worsening diffuse lung disease, right worse than left, consistent with pulmo nary edema versus pneumonia. 2. Stable small right pleural effusion. 3. Cardiomegaly.
--- NOTE | ~2023-11-02 | CT_ITS ---
Noncontrast CT scan of the cervical spine Technique: Multiple contiguous axial [address] images of the cervical spine were obtained and rec onstructed in 2D sagittal and coronal planes on the acquisition scanner. Dose reduction technique was used on this scan by utilizing automated exposure control, adjustment of the mA and/or kV according to patient size. The dose-length product (DLP) was 681.00 mGy-cm. Clinical History: Pain, cardiac arrest Findings: No fractures or dislocations. There is straightening of the normal cervical lordosis. Ther e is advanced degenerative disc narrowing at C3-C4, C4-C5, C5-C6. There is uncovertebral degenerative change at these levels. Probable mild right neural foraminal narrowing at C3-C4 with disc osteophyte complex and mild right facet arthropathy. No other definite neural foraminal narrowing identified. N o prevertebral soft tissue swelling. Impression: No fracture or subluxation of the cervical spine. Degenerative change, as above. Reviewed, dictated and finalized at location . Impression: No fracture or subluxation of the cervical spine. Degenerative change, as above.
--- NOTE | ~2023-11-02 | XR_ITS ---
EXAMINATION: XR chest ET placement DATE: 11/02/2023 21:15 INDICATION: Unresponsive TECHNIQUE: frontal view of the chest was obtained. COMPARISON: Chest radiograph and CT dated 11/17/2020 FINDINGS: Patient is rotated towards the left. Endotracheal tube tip 2.8 cm above the rojelio. There is prominen t asymmetric pulmonary vascular congestion with increased interstitial and airspace opacities through out the right hemithorax suggesting pulmonary edema although differential includes pneumonia. Left cassandra ng is clear. No pleural effusion or pneumothorax. Cardiomegaly. IMPRESSION: 1. Increased interstitial and airspace opacities throughout the right hemithorax. Differential includ es asymmetric pulmonary edema or pneumonia. The asymmetry of the right-sided pulmonary vascular conge stion also suggests possibility of left-sided pulmonary embolism. Reviewed, dictated and finalized at location [facility]. IMPRESSION: 1. Increased interstitial and airspace opacities throughout the right hemithora x. Differential includes asymmetric pulmonary edema or pneumonia. The asymmetry of the right-sided pulmonary vascular congestion also suggests possibility of left-sided pulmonary embolism.
--- NOTE | 2023-11-02 21:09 | PC.NURSE ---
PT ARRIVED TO ED IN [place]. PT WAS UNCONSCIOUS. PT INTUBATED BY EDP DR. HORNER, RESPIRATORY AT [facility]. @2044 PT INTUBATED WITH 7.0 ET TUBE, 20 @ THE LIP. POSITIVE COLOR CHANGE, BILATERAL BREATH SOUNDS HEARD. PLACED ON BIPAP AT 2047 PTWENT PULSELESS. PEA ON MONITOR. CPR RESUMED. ACLS PROTOCOL INITIATED.. EPI GIVEN @2049 @2051 PULSE CHECK, NO PULSE PEA ON MONITOR. 1000ML NORMAL SALINE BOLUS STARTED 2052 EPI GIVEN, BICARB GIVEN 2053 PULSE CHECK- PT HAS PULSE, SINUS ON MONITOR, HR 93 2ND 1000ML NORMAL SALINE BOLUS STARTED 2054 EKG TAKEN- STEMI CALLED 2054 OG PLACED, DEPTH 65
--- NOTE | 2023-11-02 21:17 | ED.CPR ---
HPI - CPR General Chief Complaint: Cardiac Arrest/CPR Stated Complaint: CARDIAC ARREST Source: EMS Limitations: no limitations History of Present Illness HPI narrative: Patient is a 78-year-old female brought into the emergency department via EMS from a [facility] in which the patient was reportedly last seen well 20 minutes prior and then was found down and unresponsive, CPR was initiated, upon EMS arrival patient was found to be asystole, 2 rounds of epinephrine were administered in addition is CPR and a a gel was placed and Ross was obtained and in route to the emergency department patient again lost a pulse was found to be in ventricular tachycardia and administered 1 shock in addition to further rounds of epinephrine and regained a pulse upon arrival to the emergency department patient had a pulse. Paperwork from [facility] shows the patient is a full code. Allergic to propofol. Past medical history of acute respiratory failure, hypertension, hyperlipidemia, diabetes mellitus, acute kidney injury. An IO was placed in the left humerus by EMS. Related Data Home Medications Medication Instructions Recorded Confirmed acetaminophen 325 mg capsule 325 mg PO Q6H PRN 04/28/19 05/01/19 aspirin 81 mg tablet,delayed 81 mg PO DAILY 04/28/19 05/01/19 release (Adult Aspirin Regimen) atorvastatin 10 mg tablet 10 mg PO DAILY 04/28/19 05/01/19 calcium carbonate (Calcium 600) 600 mg PO DAILY 04/28/19 05/01/19 fenofibrate micronized 134 mg 134 mg PO DAILY 04/28/19 05/01/19 capsule insulin aspar prot-insulin aspart 5 unit subcut BID 04/28/19 05/01/19 100 unit/mL (70-30) subcutaneous pen (Novolog Mix 70-30FlexPen U-100) insulin glargine 100 unit/mL (3 10 unit subcut DAILY 04/28/19 05/01/19 mL) subcutaneous pen (Lantus Solostar U-100 Insulin) menthol-zinc oxide 0.5 %-20.65 % each topical 04/28/19 05/01/19 topical ointment (DermaSeptin) nystatin 100,000 unit/gram topical 1 applic topical BID 04/28/19 05/01/19 powder (Nystop) olanzapine 2.5 mg tablet 2.5 mg PO DAILY 04/28/19 05/01/19 polyethylene glycol 3350 17 17 gm PO DAILY 04/28/19 05/01/19 gram/dose oral powder polyethylene glycol 3350 17 17 gm PO DAILY 04/28/19 05/01/19 gram/dose oral powder (Miralax) fluticasone fur. 100 mcg-umeclid 1 inhalation inhalation DAILY 05/01/19 05/01/19 62.5 mcg-vilant 25 mcg inhalat.powder (Trelegy Ellipta) omeprazole 40 mg capsule,delayed See Rx Instructions PO DAILY 05/01/19 05/01/19 release atorvastatin 10 mg tablet 10 mg DAILY 11/17/20 12/30/20 fenofibrate nanocrystallized 145 145 mg PO HS 11/17/20 12/30/20 mg tablet furosemide 40 mg tablet 40 mg DAILY 11/17/20 12/30/20 omeprazole 20 mg capsule,delayed 20 mg DAILY 11/17/20 12/30/20 release acetaminophen 650 mg tablet 650 mg PO Q4H PRN Pain, Mild 11/18/20 12/30/20 aspirin 81 mg tablet 81 mg PO DAILY 11/18/20 12/30/20 glucagon 1 mg solution for 1 mg IM ONCE PRN Hypoglycemia 11/18/20 12/30/20 injection (GlucaGen HypoKit) linaclotide 72 mcg capsule 72 mcg PO DAILY 11/18/20 12/30/20 (Linzess) magnesium 200 mg tablet 400 mg PO DAILY 11/18/20 12/30/20 polyethylene glycol 3350 17 gram 17 g PO DAILY PRN Constipation 11/18/20 12/30/20 oral powder packet sennosides 8.6 mg tablet (senna) 8.6 mg PO BID 11/18/20 12/30/20 Allergies Allergy/AdvReac Type Severity Reaction Status Date / Time propofol Allergy Unknown Verified 08/03/22 10:23 Review of Systems Review of Systems: ROS unobtainable: Yes unobtainable due to medical condition PMFSH Past Medical History Medical History Asthma Presumed as the patient is on Flovent CHF (congestive heart failure) Implied as patient is on Lasix Chronic respiratory failure with hypercapnia Chronic respiratory failure with hypoxia and hypercapnia GERD (gastroesophageal reflux disease) Hyperlipidemia Hypersomnia due to medical condition Insulin dependent diabetes darion
--- NOTE | 2023-11-02 21:27 | ECG_ITS ---
Test Date: 2023-11-02 20:58:29 Measurements Intervals [place] Rate: 72 P: 0 MS: 0 QRS: 108 QRSD: 147 T: -23 QT: 368 QTc: 405 Interpretive Statements SINUS RHYTHM CHANGES TO JUNCTIONAL ESCAPE RHYTHM RIGHT BUNDLE BRANCH BLOCK CANNOT R/O SEPTAL INFARCT, AGE INDETERMINATE INFERIOR ST ELEVATION MYOCARDIAL INJURY- ACUTE WITH RECIPROCAL ST DEPRESSION IN HIGH LATERAL LEADS ABNORMAL ECG No previous ECG available for comparison Electronically Signed On 11-03-2023 06:24:45 CDT by Forrest Batres D.O.
[2023-11-02] MEDS: FENTANYL 2,500MCG/NS250ML(*CRX 2,500 MCG/250 ML BAG IV CONT (21:30)
[2023-11-02] MEDS: fentaNYL CITRATE INJ (*CRX) 100 MCG/2 ML VIAL (21:35)
[2023-11-02] MEDS: EPINEPHrine INJ 1 MG in DEXTROSE 5% IN WATER 250 ML 15.06 MG IV CONT (21:40)
--- NOTE | 2023-11-02 21:41 | PC.NURSE ---
ON 11/02/2023 AT 2135 100 MCG FENTANYL IVP GIVEN TO THIS PT FOR ADD'L SEDATION PER AMELIE FROM EDP; DR. HORNER AT 2130.
[2023-11-02] MEDS: ASPIRIN 300 MG SUPPOSITORY RECTAL (21:45)
[2023-11-02 21:51] LABS: Hematocrit 37.8 % (37.0-47.0); Hemoglobin 10.5 g/dL (12.0-15.0); Mean Corpuscular HGB Conc 27.8 g/dl (32-36); Mean Corpuscular Hemoglobin 28.1 pg (26-34); Mean Corpuscular Volume 101.1 fl (80-100); Mean Platelet Volume 10.3 fl (7.4-10.4); Platelet Count Result 446 k/mm3 (150-375); Red Blood Count 3.74 M/mm3 (4.2-5.4); Red Cell Distribution Width 19.3 % (11.5-14.5); White Blood Count 19.6 K/mm3 (4.5-10.0)
[2023-11-02 22:05] LABS: Band Neutrophils Percent 9 % (0-6); Eosinophils Absolute Manual 0.19 K/mm3 (0.02-0.50); Eosinophils Percent Manual 1 % (0-4); Lymphocytes Absolute Manual 5.88 K/mm3 (1.1-4.5); Lymphocytes Percent Manual 30 % (18-44); Metamyelocytes Percent 3 %; Monocytes Absolute Manual 0.58 K/mm3 (0.1-0.90); Monocytes Percent Manual 3 % (3-9); Neutrophils Absolute Manual 12.34 K/mm3 (1.7-7.2); Neutrophils Percent Manual 54 % (46-73); Total Cells Counted 100
[2023-11-02 22:06] LABS: Anisocytosis 1+; Hypochromasia 1+; Nucleated Red Blood Cells 1 %; Platelet Estimate Increased (Adequate); Schistocytes None Seen
[2023-11-02 22:07] LABS: Atypical Lymphocytes Present
--- NOTE | 2023-11-02 22:13 | PC.NURSE ---
Verbal order read back from EDP Dr. Vides to give 2mg Versed IV push. This medication was removed from RSI kit that was at pt bedside. 2mg Versed given IV push at 5472
[2023-11-02 22:14] LABS: SPREG INTERNAL CONTROL Positive; Serum Qual hCG Negative
--- NOTE | 2023-11-02 22:15 | PC.NURSE ---
Cath team arrived at 2140. Report given to cath team at bedside. pt transferred out of ED at 2150, RT and 3RNs at pt bedside.
[2023-11-02 22:19] LABS: Acetaminophen < 10 ug/mL (10-30); Ethanol < 10 mg/dL (<10); Salicylate < 1.0 mg/dL (2-20)
[2023-11-02 23:08] LABS: Free T4 Free Thyroxine Reflex 1.05 ng/dL (0.78-2.19)
--- NOTE | 2023-11-02 23:51 | WPDCARDPROC ---
Cardiac Cath Procedure Note Date of procedure:: 11/02/23 Performing physician:: Jose Raul Vickers MD Indication:: out of hospital cardiac arrest ST elevation VT Brief clinical history:: this is a 78-year-old woman who is a care home resident who was found unresponsive. Upon arrival of EMS she was found to be asystolic and resuscitation efforts ensued. Patient was brought to the hospital. On route she arrested again with sustained ventricular tachycardia and she arrested again in the emergency room with ventricular fibrillation. Following all of this electrocardiogram shows acute inferior ST-elevation VT with acute current of injury and in that setting we are asked to bring her to the cardiac distillery laborer for emergency angiography and revascularization. The patient is intubated unresponsive and on mechanical ventilator support and on epinephrine infusion Procedure Procedure performed:: emergency coronary angiography emergency PCI with angioplasty, extraction thrombectomy and stenting of the proximal RCA left ventriculogram placement of temporary transvenous pacing wire Sedation/Medication given:: fentanyl infusion running from the emergency room Access site:: right femoral artery right femoral vein Estimated blood loss:: 50 cc Procedure note:: patient was brought to the cardiac catheterization lab in the emergency setting described above. The femoral triangles were prepped and draped in the usual sterile fashion. The patient was hypotensive and femoral pulse was not palpable. Using landmarks femoral artery was still punctured effectively with modified Seldinger technique and a 6 Namibian vascular sheath was placed. I then used a 5 [place] FL4 catheter to engage and inject the left coronary artery and multiple projections. Following this a 5 [place] JR4 catheter was used to engage and inject the right coronary artery. PCI of the proximal right coronary artery was planted carried out as detailed below. Prior to PCI the patient was given 180 mg of Brilinta down the OG tube and was systemically anticoagulated with a bolus and infusion of Angiomax. Following completion of PCI as described below a 5 [place]ian angled pigtail catheter was used to measure central hemodynamics and to inject the left ventriculogram in the WILLIAM projection. Plans were made then to terminate the case and transport the patient to the ICU. Was noted that her heart rate was decreasing as well as the blood pressure and the patient was in a junctional rhythm with a heart rate approximately 40 beats per minute. I elected therefore while still in the distillery laborer to upsize the venous sheath to a 7 [place]ian and placed a temporary transvenous pacemaker in the right ventricle at 6 heart rate set at 70 beats per minute. Patient was then taken to the ICU for post VT / PCI recovery. Plans for hypothermia are being made in the ICU. Findings:: Hemodynamics: Central aortic pressure is 105 over 38 left ventricle 105 over 3 end-diastolic pressure 16. No gradient upon pullback across the aortic valve. Left ventricle: The LV is of normal size there is mild inferior hypokinesia but overall vigorous contractility with an ejection fraction that appears to be 70% by visual estimation the left main coronary artery is short and patent the left anterior is a moderate caliber artery extending down to the apex. There is a moderate calcified stenosis in the proximal LAD of approximately 80% there is a haziness to this lesion and this stenosis is in region of 1st diagonal branch. There was DERECK with the LAD. The circumflex is a medium caliber artery the 1st couple of marginal branches are very small. The circumflex has mild diffuse luminal irregularities but no flow-limiting disease is seen the right coronary artery is moderate caliber and is 100% occluded in the 1st portion intervention: The right coronary artery was engaged using a 6 [place] JR4 guiding catheter. 0.014 BM
[2023-11-02 23:56] LABS: Total Triiodothyronine (T3) 1.03 NG/ML (0.97-1.69)
[2023-11-03] VITALS (92 sets, daily range): BP systolic 66–185; BP diastolic 42–80; PULSE 24–93; RESP 19–30; TEMP 34.7–36.9; O2SAT 92–100; BMI 38.0
--- NOTE | 2023-11-03 00:07 | PM.IMHP ---
H&P: HPI History of Present Illness Date/Time: 11/03/23 00:07 Chief Complaint: out of hospital cardiac arrest, acute ST-elevation CT Narrative: this is a 78-year-old woman who I was called to bring to the cathode was[facility] late this evening because of cardiac arrest following resuscitation she appears to have inferior ST-elevation CT. There is no previous cardiac history. The patient was found asystolic at her residence. She also had a ventricular tachycardia arrest in the ambulance on the way to the hospital and a ventricular fibrillation arrest in the emergency department. Patient has morbid obesity, hypoventilation, diabetes and dyslipidemia in her medical history. 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 Never smoked tobacco Obesity hypoventilation syndrome Obstructive sleep apnea Surgical History Surgical History Surgical history unknown Family History Family History Mother Family history of cardiovascular disease Father Family history of lung cancer Other Unknown family medical history Social History Social History Smoking status: Never smoker Alcohol intake: unknown Substance use: never Substance use type: does not use Living arrangements: care home Spiritual care concerns: No Meds Home Medications and Allergies Home Medications Medication Instructions Recorded Confirmed Type acetaminophen 325 mg capsule 325 mg PO Q6H PRN 04/28/19 05/01/19 History aspirin 81 mg tablet,delayed 81 mg PO DAILY 04/28/19 05/01/19 History release (Adult Aspirin Regimen) atorvastatin 10 mg tablet 10 mg PO DAILY 04/28/19 05/01/19 History calcium carbonate (Calcium 600) 600 mg PO DAILY 04/28/19 05/01/19 History fenofibrate micronized 134 mg 134 mg PO DAILY 04/28/19 05/01/19 History capsule insulin aspar prot-insulin aspart 5 unit subcut BID 04/28/19 05/01/19 History 100 unit/mL (70-30) subcutaneous pen (Novolog Mix 70-30FlexPen U-100) insulin glargine 100 unit/mL (3 10 unit subcut DAILY 04/28/19 05/01/19 History mL) subcutaneous pen (Lantus Solostar U-100 Insulin) menthol-zinc oxide 0.5 %-20.65 % each topical 04/28/19 05/01/19 History topical ointment (DermaSeptin) nystatin 100,000 unit/gram topical 1 applic topical BID 04/28/19 05/01/19 History powder (Nystop) olanzapine 2.5 mg tablet 2.5 mg PO DAILY 04/28/19 05/01/19 History polyethylene glycol 3350 17 17 gm PO DAILY 04/28/19 05/01/19 History gram/dose oral powder polyethylene glycol 3350 17 17 gm PO DAILY 04/28/19 05/01/19 History gram/dose oral powder (Miralax) fluticasone fur. 100 mcg-umeclid 1 inhalation inhalation DAILY 05/01/19 05/01/19 History 62.5 mcg-vilant 25 mcg inhalat.powder (Trelegy Ellipta) omeprazole 40 mg capsule,delayed See Rx Instructions PO DAILY 05/01/19 05/01/19 History release atorvastatin 10 mg tablet 10 mg DAILY 11/17/20 12/30/20 History fenofibrate nanocrystallized 145 145 mg PO HS 11/17/20 12/30/20 History mg tablet furosemide 40 mg tablet 40 mg DAILY 11/17/20 12/30/20 History omeprazole 20 mg capsule,delayed 20 mg DAILY 11/17/20 12/30/20 History release acetaminophen 650 mg tablet 650 mg PO
--- NOTE | 2023-11-03 00:42 | PCRCNOTE ---
unable to obtain ABG ordered in ER on 11/01 at 21:27 due to patient transported to [facility] stat. ABG was not obtained at this time.
--- NOTE | 2023-11-03 00:43 | PM.IMHP ---
H&P: HPI History of Present Illness Date/Time: 11/03/23 00:43 Chief Complaint: cardiac arrest Narrative: This is a 78 yo female who [facility] was found unresponsive and pulseless ROSC achieved on the field, brought via EMS. In ED found to have STEMI s/p catheterization.Patient is now on ventilator support and admitted to ICU. EKG Rate 84 AL 180 QRSd 144 QT 399 QTc 473 --[place]-- P 70 QRS -15 T -22 SINUS RHYTHM RIGHT BUNDLE BRANCH BLOCK [120+ ms QRS DURATION, UPRIGHT V1, 40+ ms S IN I/aVL/V4/V5/V6] Compared to ECG 11/02/2023 20:58:29 Right bundle-branch block now present Atrial fibrillation no longer present Intraventricular conduction delay no longer present Myocardial infarct finding no longer present ST (T Review of Systems Review of Systems: ROS unobtainable: Yes unobtainable due to mental status (on ventilator) PMFSH Past Medical History Medical History Asthma Presumed as the patient is on Flovent CHF (congestive heart failure) Implied as patient is on Lasix Chronic respiratory failure with hypercapnia Chronic respiratory failure with hypoxia and hypercapnia GERD (gastroesophageal reflux disease) Hyperlipidemia 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 Never smoked tobacco Obesity hypoventilation syndrome Obstructive sleep apnea Surgical History Surgical History Surgical history unknown Family History Family History Mother Family history of cardiovascular disease Father Family history of lung cancer Other Unknown family medical history Social History Social History Smoking status: Never smoker Alcohol intake: never Substance use: never Substance use type: does not use Living arrangements: [facility] Spiritual care concerns: No Meds Home Medications and Allergies Home Medications Medication Instructions Recorded Confirmed Type aspirin 81 mg tablet,delayed 81 mg PO DAILY 04/28/19 11/03/23 History release (Adult Aspirin Regimen) calcium carbonate (Calcium 600) 600 mg PO DAILY 04/28/19 11/03/23 History nystatin 100,000 unit/gram topical 1 applic topical BID 04/28/19 11/03/23 History powder (Nystop) polyethylene glycol 3350 17 17 gm PO DAILY 04/28/19 11/03/23 History gram/dose oral powder (Miralax) fenofibrate nanocrystallized 145 145 mg PO HS 11/17/20 11/03/23 History mg tablet furosemide 40 mg tablet 40 mg PO DAILY 11/17/20 11/03/23 History omeprazole 20 mg capsule,delayed 20 mg PO DAILY 11/17/20 11/03/23 History release glucagon 1 mg solution for 1 mg IM ONCE PRN Hypoglycemia 11/18/20 11/03/23 History injection (GlucaGen HypoKit) linaclotide 72 mcg capsule 72 mcg PO DAILY 11/18/20 11/03/23 History (Linzess) magnesium 200 mg tablet 400 mg PO DAILY 11/18/20 11/03/23 History sennosides 8.6 mg tablet (senna) 8.6 mg PO BID 11/18/20 11/03/23 History tolnaftate 1 % topical powder 1 applic topical Q12HR #45 grams 11/20/20 11/03/23 Rx metformin 500 mg tablet 500 mg PO BID #60 tabs 11/25/20 11/03/23 Rx amlodipine 10 mg tablet 10 mg PO DAILY 11/03/23 11/03/23 History atorvastatin 40 mg tablet 40 mg PO HS 11/03/23 11/03/23 History docusate sodium 100 mg tablet 100 mg PO BID 11/03/23 11/03/23 History dulaglutide 0.75 mg/0.5 mL 0.75 mg subcut WEEKLY 11/03/23 11/03/23 History subcutaneous pen injector (Trulicity) empagliflozin 25 mg tablet 25 mg PO DAILY 11/03/23 11/03/23 History (Jardiance) fluoxetine 20 mg capsule 20 mg PO DAILY 11/03/23 11/03/23 History fluticasone propionate 50 1 inh inhalation BID 11/03/23 11/03/23 History mcg/actuation blister powder for inhalation insulin glargine-yfgn 100 unit/mL 45 unit subcut BID 11/03/23 11/03/23 History (3 mL) subcutaneous pen insulin lispro 100 unit/mL 20 un
--- NOTE | 2023-11-03 00:45 | PC.NURSE ---
Spoke with Dr. Srinivasan regarding patient status, vital signs, okay to start versed drip and fent drip. Levophed currently running. Titrate for SBP of 110. Start Hypothermia protocol with target temp 36 celsius.
--- NOTE | 2023-11-03 00:49 | ECHO_ITS ---
Patient Info Name: Idalia Dorantes Age: 78 years : 1945 Gender: Female Ht: 63 in Wt: 175 lbs BSA: 1.91 m2 HR: 83 bpm BP: 126 / 47 mmHg Heart Rhythm: Sinus Rhythm Technical Quality: Fair Exam Date: 11/03/2023 11:53 AM Exam Location: Echo Lab Patient Status: Inpatient Admit Date: 11/02/2023 Staff Ordering Physician: Heraclio Srinivasan MD Manager Respiratory Care: Kindra Wolf RDCS Attending Provider: Jose Raul Vickers MD Referring Physician: Craig BOWMAN; Exam Type: CA echo dop color flow w con Study Info Indications - stemi Complete two-dimensional, color flow and Doppler transthoracic echocardiogram is performed with contrast to opacify the left ventricle and to improve the deliniation of the left ventricle endocardial borders. Contrast/Agitated Saline Contrast/Ag. Saline: Definity Amount: 2.00 ml Administered By: Kindra Wolf RDCS Existing IV Access: Yes IV Access Condition: patent with no signs of infiltration Summary 1. Left ventricular chamber dimension is normal. 2. Left ventricular systolic function is normal, estimated at 65-70%. 3. There is mildly increased left ventricular wall thickness. 4. The left ventricular diastolic function is grade I diastolic dysfunction. 5. Right ventricular chamber dimension is mildly enlarged. 6. Left atrial chamber dimension is mildly enlarged. 7. There is mild mitral valve regurgitation. 8. There is mild tricuspid valve regurgitation. Left Ventricle Left ventricular chamber dimension is normal. Left ventricular systolic function is normal, estimated at 65-70%. There is mildly increased left ventricular wall thickness. The left ventricular diastolic function is grade I diastolic dysfunction. Right Ventricle Right ventricular chamber dimension is mildly enlarged. Right ventricular systolic function is normal. Left Atria Left atrial chamber dimension is mildly enlarged. Right Atria Right atrial chamber dimension is normal. Atrial Septum Intact interatrial septum visualized by color flow imaging. Aortic Valve The aortic valve is trileaflet. There is mild aortic valve sclerosis. There is no aortic valve stenosis. There is trace aortic valve regurgitation. Pulmonic Valve The pulmonic valve is normal. There is mild pulmonic valve stenosis. There is trace pulmonic regurgitation. Mitral Valve The mitral valve has thickened leaflets. There is no mitral valve stenosis. There is mild mitral valve regurgitation. Tricuspid Valve The tricuspid valve leaflets are normal. There is no significant tricuspid valve stenosis. There is mild tricuspid valve regurgitation. No pulmonary hypertension, estimated pulmonary arterial systolic pressure is 29 mmHg. Pericardium/Pleural The pericardium appears normal. There is trivial pericardial effusion. Inferior Vena Cava Normal inferior vena cava with <50% collapse upon inspiration consistent with elevated right atrial pressure, 10 mmHg. Aorta The aortic root size at the sinus of Valsalva is normal. Left Ventricular Outflow Tract Name Value Normal LVOT Doppler LVOT Peak Gradient 4 mmHg LVOT Mean Gradient 2 mmHg LVOT VTI 16.88 cm LVOT VTI/AV
[2023-11-03] MEDS: NOREPINEPHRINE 8 MG/D5W 250 ML 8 MG/250 ML BAG 11.25 MG IV CONT (01:00)
[2023-11-03] MEDS: LORazepam INJ (*CRX) 2 MG/ML VIAL 1 MG IV PUSH (01:08)
[2023-11-03 01:20] LABS: Anion Gap 19 mmol/L (4-12); Blood Urea Nitrogen 37 mg/dL (7-17); Calcium 7.3 mg/dL (8.4-10.2); Carbon Dioxide 19 mmol/L (22-30); Chloride 98 mmol/L (98-107); Cholesterol 189 mg/dL (0-200); Estimated CRCL calculation 24 ml/min; Estimated Glomerular Filt Rate 27; Glucose 384 mg/dL (65-110); HDL Direct 21 mg/dL; Potassium 5.3 mmol/L (3.4-5.0); Sodium 136 mmol/L (137-145); Triglycerides 276 mg/dL (<150)
[2023-11-03 01:30] LABS: LDL Cholesterol Direct 111 mg/dL
[2023-11-03 01:44] LABS: Base Excess ABG -10.5 mEq/l (+/-2.0); Carboxyhemoglobin 0.9 % THb (0-2.0); Fractional Inspired Oxygen 100 %; HCO3 ABG 18.7 mEq/l (22.0-26.0); Methemoglobin ABG 0.3 %THb (0-1.5); Oxygen Content ABG 16.7 %vol (16.0-22.0); Oxyhemoglobin 98.4 % THb (90.0-100.0); PCO2 ABG 56.4 mmHg (35.0-45.0); PO2 ABG 206.3 mmHg (80.0-100.0); PO2 FiO2 Ratio Arterial Blood 2.06 %; Reduced Hemoglobin 0.4 %THb (0-5.0); Total Hemoglobin 11.7 g/dL (12.0-18.0)
[2023-11-03] MEDS: MIDAZOLAM 100MG/NS 100ML(*CRX) 100 MG/100 ML BAG IV CONT (01:50)
[2023-11-03 01:52] LABS: Device VENTILATOR; Modified Allen's Test Pass; Site Drawn LEFT RADIAL; pH ABG 7.138 (7.350-7.450)
[2023-11-03 01:53] LABS: Arterial Blood Gas PEEP 5 cmH2O; Arterial Blood Gas Tidal Volume 400 ml; Arterial Blood Gas Vent Mode CMV; Arterial Blood Gas Ventilator rate 22 /MIN
[2023-11-03 01:57] LABS: Phosphorus 12.8 mg/dL (2.5-4.5)
[2023-11-03 02:04] LABS: D Dimer > 20.00 ug/mL (<0.48); INR 1.1; Prothrombin Time 15.2 Seconds (11.1-14.7)
--- NOTE | 2023-11-03 02:04 | ADMGEN ---
This patient, Idalia Dorantes, was admitted to Intensive Care Unit-2. Patient/family oriented to hospital policies and general routines including ID bracelet, bed and alarms, visiting hours, pain management, procedures, bathroom and other care routines, personal items, smoking policy, room service/diet, and visiting hours. Information on how to activate the Rapid Response Team has been discussed. Patient/Family are encouraged to report perceived risks to care and to ask questions if they do not understand what they are told or what they should do.
[2023-11-03 02:10] LABS: Lactic Acid Reflex 8.4 mmol/L (0.7-2.0)
[2023-11-03 02:16] LABS: Lipase 274 U/L (23-300); Magnesium 2.3 mg/dL (1.6-2.3)
[2023-11-03 02:17] LABS: Alanine Aminotransferase 142 U/L (6-35); Albumin Level 3.5 g/dL (3.5-5.1); Alkaline Phosphatase 112 U/L (38-126); Aspartate Amino Transferase 603 U/L (14-36); Creatine Kinase 1223 U/L (30-135)
[2023-11-03 02:24] LABS: NT Pro B Type Natriuretic Pept 2250 pg/mL (19.9-100)
[2023-11-03] MEDS: SODIUM BICARBONATE 8.4% 50 MEQ/50 ML SYRINGE 100 MEQ IV PUSH (02:25)
[2023-11-03] MEDS: SODIUM BICARBONATE 8.4% 100 MEQ in WATER, STERILE FOR INJECTION 1,000 ML 75 MEQ IV CONT (03:24)
[2023-11-03] MEDS: MINERAL OIL/WHITE PETROLATUM OINTMENT 1 APPLIC EACH EYE ×3 (03:29→20:13)
[2023-11-03] MEDS: CEFEPIME 0.5 GM in DEXTROSE 5% IN WATER 50 ML IVPB (03:33)
[2023-11-03] MEDS: VANCOMYCIN 1,500 MG/NS 500 ML 1,500 MG/500 ML BAG 250 MG IVPB (04:40)
[2023-11-03 04:43] LABS: Hematocrit 37.5 % (37.0-47.0); Hemoglobin 10.9 g/dL (12.0-15.0); Mean Corpuscular HGB Conc 29.1 g/dl (32-36); Mean Corpuscular Hemoglobin 28.4 pg (26-34); Mean Corpuscular Volume 97.7 fl (80-100); Mean Platelet Volume 10.1 fl (7.4-10.4); Platelet Count Result 465 k/mm3 (150-375); Red Blood Count 3.84 M/mm3 (4.2-5.4); Red Cell Distribution Width 19.4 % (11.5-14.5); White Blood Count 32.9 K/mm3 (4.5-10.0)
[2023-11-03] MEDS: INSULIN ASPART (*BKC) 100 UNITS/ML SUB-Q ×2 (04:44→08:28)
[2023-11-03 04:45] LABS: Reflex Lactic Acid Yes or No Add Lactic
[2023-11-03 04:46] LABS: Glucose Point of Care 381 mg/dl (65-105)
[2023-11-03 04:58] LABS: Anion Gap 14 mmol/L (4-12); Blood Urea Nitrogen 46 mg/dL (7-17); Calcium 7.2 mg/dL (8.4-10.2); Carbon Dioxide 25 mmol/L (22-30); Chloride 98 mmol/L (98-107); Estimated CRCL calculation 25 ml/min; Estimated Glomerular Filt Rate 27; Glucose 409 mg/dL (65-110); Lactic Acid Reflex 2.8 mmol/L (0.7-2.0); Phosphorus 9.1 mg/dL (2.5-4.5); Potassium 4.9 mmol/L (3.4-5.0); Sodium 137 mmol/L (137-145)
[2023-11-03] MEDS: SODIUM CHLORIDE 0.9% IV 1,000 ML 125 ML IV CONT (04:58)
[2023-11-03 04:59] LABS: INR 2.2; Prothrombin Time 24.9 Seconds (11.1-14.7)
[2023-11-03 05:00] LABS: Partial Thromboplastin Time 61.6 Seconds (22.3-36.8)
[2023-11-03 05:11] LABS: Band Neutrophils Percent 10 % (0-6); Monocytes Absolute Manual 1.31 K/mm3 (0.1-0.90); Monocytes Percent Manual 4 % (3-9); Neutrophils Absolute Manual 29.28 K/mm3 (1.7-7.2); Neutrophils Percent Manual 79 % (46-73); Total Cells Counted 100
--- NOTE | 2023-11-03 05:11 | ECG_ITS ---
Test Date: 2023-11-03 01:09:56 Measurements Intervals [place] Rate: 84 P: 70 LA: 180 QRS: -15 QRSD: 144 T: -22 QT: 399 QTc: 473 Interpretive Statements SINUS RHYTHM RIGHT BUNDLE BRANCH BLOCK BASELINE WANDER- I, III, AVR, AVL, AVF, V3-V6 ABNORMAL ECG Compared to ECG 11/02/2023 20:58:29 STEMI NO LONGER PRESENT Electronically Signed On 11-03-2023 06:19:29 CDT by Forrest Batres D.O.
[2023-11-03 05:12] LABS: Basophils Absolute Manual 0.32 K/mm3 (0.0-0.1); Basophils Percent Manual 1 % (0-1); Eosinophils Absolute Manual 0.32 K/mm3 (0.02-0.50); Eosinophils Percent Manual 1 % (0-4); Lymphocytes Absolute Manual 0.98 K/mm3 (1.1-4.5); Lymphocytes Percent Manual 3 % (18-44); Metamyelocytes Percent 2 %; Nucleated Red Blood Cells 1 %; Platelet Estimate Increased (Adequate)
[2023-11-03 05:14] LABS: Anisocytosis 1+; Hypochromasia 1+; Large Platelets Present; Schistocytes None Seen
[2023-11-03 05:15] LABS: Troponin I > 80.000 ng/mL (0.000-0.034)
[2023-11-03 05:25] LABS: Appearance Urine Cloudy (Clear); Bacteria Urine 1+ /hpf; Bilirubin Urine Negative (Negative); Blood Urine 3+ (Negative); Color Urine Yellow (Yellow); Glucose Urine UA 3+ mg/dL (Negative); Hyaline Casts Urine Present /lpf; Ketones Urine Negative (Negative); Leukocyte Esterase Ur Negative LEU/UL (Negative); Need Manual Microscopic Reviewed; Nitrate Urine Negative (Negative); Protein Urine 3+ mg/dL (Negative); RBC Urine 51-100 /hpf (0-2); Specific Grav Ur 1.038 (1.001-1.035); Squamous Epithelial Cell Urine Moderate /hpf (Few); WBC Urine 21-50 /hpf (0-3); pH Urine 5.5 (5.0-9.0)
[2023-11-03 05:26] LABS: Alveolar/Arterial O2 Gradient 363.3 mmHg; Base Excess ABG -6.5 mEq/l (+/-2.0); Fractional Inspired Oxygen 70 %; HCO3 ABG 21.1 mEq/l (22.0-26.0); Oxygen Content ABG 16.4 %vol (16.0-22.0); Oxyhemoglobin 93.1 % THb (90.0-100.0); PCO2 ABG 50.6 mmHg (35.0-45.0); PO2 ABG 81.4 mmHg (80.0-100.0); PO2 FiO2 Ratio Arterial Blood 1.16 %; Total Hemoglobin 12.5 g/dL (12.0-18.0)
[2023-11-03 05:26] LABS: Add Urine Microscopic? YES
[2023-11-03 05:29] LABS: Amphetamine Screen Urine Negative (Negative); Barbiturate Screen Urine Negative (Negative); Benzodiazepines Screen Urine Positive (Negative); Cannabinoid Screen Urine Negative (Negative); Cocaine Screen Urine Negative (Negative); Methadone Screen Urine Negative (Negative); Opiate Screen Urine Negative (Negative); Phencyclidine Screen Urine Negative (Negative)
[2023-11-03 05:31] LABS: Device VENTILATOR; Modified Allen's Test Pass; Site Drawn LEFT RADIAL; pH ABG 7.238 (7.350-7.450)
[2023-11-03 05:32] LABS: Arterial Blood Gas PEEP 5 cmH2O; Arterial Blood Gas Tidal Volume 420 ml; Arterial Blood Gas Vent Mode CMV; Arterial Blood Gas Ventilator rate 24 /MIN
[2023-11-03 05:40] LABS: Creatine Kinase 3993 U/L (30-135)
[2023-11-03 05:47] LABS: Influenza A QL RT-PCR Negative (Negative); Influenza B QL RT-PCR Negative (Negative); RSV RNA, RT-PCR Negative (Negative); SARS-CoV-2 RNA PCR Negative (Negative)
[2023-11-03 06:01] LABS: Glucose Point of Care 398 mg/dl (65-105)
[2023-11-03 06:22] LABS: MRSA (PCR) NOT DETECTED (NOT DETECTE)
[2023-11-03 06:59] LABS: Glucose Point of Care 356 mg/dl (65-105)
--- NOTE | 2023-11-03 07:15 | PC.NURSE ---
Bedside shift report done. IV gtts reviewed, leak noted to Cooling blanket system. Intermittent myoclonic jerks noted. No sign or symptom of distress.
--- NOTE | 2023-11-03 07:30 | PC.NURSE ---
Dr. Carpenter to bedside. New orders received. PICC line consent from Дмитрий, patient's son. Family updated on plan of care.
[2023-11-03] MEDS: ROCURONIUM BROMIDE 50 MG/5 ML VIAL IV PUSH (08:20)
[2023-11-03] MEDS: INSULIN GLARGINE (*BKC) 100 UNITS/ML 45 UNITS SUB-Q (08:22)
[2023-11-03 08:27] LABS: Glucose Point of Care 417 mg/dl (65-105)
[2023-11-03 08:30] LABS: Lactic Acid Reflex 2.6 mmol/L (0.7-2.0)
[2023-11-03] MEDS: NOREPINEPHRINE 8 MG/D5W 250 ML 8 MG/250 ML BAG 18.75 MG IV CONT (08:30)
--- NOTE | 2023-11-03 08:31 | VASCRN ---
Order received for:PICC line After review of the chart and the patient assessment, patient is not a candidate for the following reason(s):inadequate vessel size to support line placement Provider notified:Dr. Carpenter
[2023-11-03 08:46] LABS: Troponin I > 80.000 ng/mL (0.000-0.034)
[2023-11-03] MEDS: CALCIUM GLUC 2,000 MG/NS 100ML 2,000 MG/100 ML BAG 100 MG IVPB ×2 (08:48→16:36)
--- NOTE | 2023-11-03 09:00 | ECG_ITS ---
Test Date: 2023-11-03 13:35:23 Measurements Intervals [place] Rate: 71 P: 64 FL: 169 QRS: -29 QRSD: 129 T: 10 QT: 446 QTc: 488 Interpretive Statements SINUS RHYTHM WITH OCCASIONAL SUPRAVENTRICULAR PREMATURE COMPLEXES IVCD, WITH FEATURES OF BOTH RIGHT BUNDLE BRANCH BLOCKAND LBBB INFERIOR INFARCT, AGE INDETERMINATE ST ABNORMALITY IN HIGH LATERAL LEADS- CONSIDER ISCHEMIA ABNORMAL ECG Compared to ECG 11/03/2023 01:09:56 ST ABNORMALITY NOW PRESENT Electronically Signed On 11-03-2023 13:52:15 CDT by Forrest Batres D.O.
[2023-11-03 09:04] LABS: Creatine Kinase 4707 U/L (30-135)
[2023-11-03] MEDS: levETIRAcetam 500MG/NACL 100ML 500 MG/100 ML BAG 400 MG IVPB ×2 (09:16→20:13)
[2023-11-03] MEDS: IPRATROPIUM 0.5 MG/ALBUTEROL SULFATE 2.5 MG AMPUL.NEB 3 ML INHALATION ×2 (09:30→23:16)
[2023-11-03] MEDS: CISATRACURIUM BESYLATE 20 MG/10 ML VIAL 12 MG IV PUSH (09:35)
--- NOTE | 2023-11-03 09:35 | WPDPROCEDUR ---
Procedures Central Line Placement Right IJ: Central Line Date: 11/03/23 Central Line Time: 09:00 Discussed w/ the patient/family/POA,the placement of a central venous catheter, including its clinical necessity/indication & associated potential risks, benifits and alternatives.: Yes The patient/family/POA understand(s) and acknowledge(s) the need to proceed with central venous catheter insertion as an important element of the patient's clinical management.: Yes Consent: I have discussed with the patient and/or surrogate, the non-emergent placement of a central venous catheter, including its clinical necessity/indication and associated potential risks and complications. The patient and/or surrogate understand(s) and acknowledge(s) the need to proceed with central venous catheter insertion as an important element of the patient's clinical management. Time Out Performed: Yes Patient Position: supine Patient placed on monitor/pulse ox: Yes Provider Prep: mask, sterile gown, sterile gloves, Max. sterile barrier precautions, cap and hand hygiene with conventional soap/water or alcohol based hand rub Central line prep: Povidone-Iodine 1% Sterile US Technique with sterile gel/sterile probe covers: Yes Central line lumen inserted: triple Length (cm): 16 Depth of Insertion (cm): 16 Post Procedure: sutured in place, good blood return, all ports aspirated, flushed, capped, transparent dressing, hemostatic product and aseptic technique maintained throughout procedure Post procedure x-ray: tip of catheter in good position and no pneumothorax seen Patient tolerated procedure: well Complications: none Additional comments: On 1st attempt the white and blue port were not drawing blood or flushing. Catheter was replaced over a guidewire to a new catheter without any complications and also reports of new catheter denisse blood and were flushed without any difficulty
--- NOTE | 2023-11-03 09:38 | WPDCNINT ---
Assessment and Plan Assessment and plan (1) Cardiac arrest: Code(s): I46.9 - Cardiac arrest, cause unspecified Status: Acute Assessment and Plan: Cardiac arrest secondary to STEMI Patient now status post PCI and stent placement in RCA Continue management with dual antiplatelet therapy Hold beta-autumn or LAUREN-inhibitor due to shock and Hold statin due to rhabdomyolysis Echo ordered and pending Cardiology following (2) LENIN (acute kidney injury): Code(s): N17.9 - Acute kidney failure, unspecified Status: Acute Assessment and Plan: Multifactorial acute renal failure likely secondary to cardiac arrest shock and respiratory failure Patient overall volume overloaded and will hold further IV fluids Monitor urine output electrolytes and creatinine Consult nephrology Will discontinue bicarb as metabolic acidosis improved (3) Rhabdomyolysis: Code(s): M62.82 - Rhabdomyolysis Status: Acute Assessment and Plan: Could be secondary to hypothermia protocol Patient will be started on Nimbex infusion to minimize shivering Monitor CK level Cautious IV fluids (4) ST elevation (STEMI) myocardial infarction: Qualifiers: Involved coronary artery: unspecified coronary artery Qualified Code(s): I21.3 - ST elevation (STEMI) myocardial infarction of unspecified site Code(s): I21.3 - ST elevation (STEMI) myocardial infarction of unspecified site Status: Acute Assessment and Plan: See above (5) Insulin dependent diabetes mellitus: Status: Acute Assessment and Plan: Uncontrolled diabetes mellitus with hyperglycemia Start insulin infusion Patient was given Lantus this morning which will be continued (6) Acute respiratory failure with hypoxia: Code(s): J96.01 - Acute respiratory failure with hypoxia Status: Acute Assessment and Plan: Patient has history of chronic respiratory failure secondary to obesity hypoventilation and obstructive sleep apnea Patient is a chronic CO2 retainer Patient now intubated and sedated due to cardiac arrest chest x-ray shows pulmonary possible pneumonia which could be aspiration She also has a small right pleural effusion Chest x-ray reviewed and endotracheal tube is in acceptable position Hold further bolus IV fluids ABG reviewed and peep increased to 10 Bronchodilators ordered Treatment of pneumonia as below (7) Encephalopathy: Code(s): G93.40 - Encephalopathy, unspecified Status: Acute Assessment and Plan: Multifactorial encephalopathy as patient is sedated but patient does appear to anoxic brain injury She is currently sedated. CT on presentation was negative Examination as above Continue TTM protocol Continue Keppra (8) Anoxic brain injury: Code(s): G93.1 - Anoxic brain damage, not elsewhere classified Status: Acute Assessment and Plan: See above (9) Shock: Code(s): R57.9 - Shock, unspecified Status: Acute Assessment and Plan: Make shock likely secondary to STEMI cardiac arrest sedation and possibly sepsis from aspiration pneumonia Continue Levophed Currently on cautious IV fluids (10) Sepsis: Code(s): A41.9 - Sepsis, unspecified organism Status: Acute Assessment and Plan: UA shows WBC but negative leukoesterase, blood cultures ordered and pending Possibility of aspiration pneumonia Continue cefepime and Flagyl Check procalcitonin (11) Chronic obstructive pulmonary disease: Code(s): J44.9 - Chronic obstructive pulmonary disease, unspecified Status: Acute Assessment and Plan: Bronchodilators ordered (12) Obesity hypoventilation syndrome: Code(s): E66.2 - Morbid (severe) obesity with alveolar hypoventilation Status: Acute Assessment and Plan: Patient currently intubated (13) Chronic respiratory failure with hypoxia and hypercapnia: Code(s): J96.11 - Chronic respirato
--- NOTE | 2023-11-03 09:45 | PM.PNCARD ---
Progress Note: A&P Assessment and Plan (1) ST elevation (STEMI) myocardial infarction: Qualifiers: Involved coronary artery: unspecified coronary artery Qualified Code(s): I21.3 - ST elevation (STEMI) myocardial infarction of unspecified site Code(s): I21.3 - ST elevation (STEMI) myocardial infarction of unspecified site Status: Acute Assessment and Plan: Cardiac catheterization showed: 1. Right coronary dominant circulation with acute ST-elevation ME presenting with [id number] asystolic arrest followed by ventricular tachycardia arrest followed by ventricular fibrillation arrest. Right coronary artery is 100% occluded proximally at the start of the case. 2. Moderate to high-grade 80% proximal LAD stenosis which is significantly calcified 3. Surprisingly good left ventricular systolic function 4. Successful RCA intervention involving balloon angioplasty, a penumbra thrombectomy and stenting using the Nixleiro drug-eluting stent resulting in a very nice angiographic result. 5. Junctional bradycardia at the conclusion of the case we elected to place temporary transvenous pacemaker prior to the patient going to the ICU. Continue ASA 81mg once daily indefinitely. Continue Brilinta 90mg BID for at least 1 year. Continue high intensity statin. Echocardiogram pending. If patient survives this, will eventually need PCI fo the proximal LAD stenosis, which would not be amenable to PCI here at this institution due to it being a heavily calcified stenosis. Patient is currently in sinus rhythm, does not require pacer. Will leave pacer in for now, and if no issues with bradycardia in the next 24 hours, will plan to remove transvenous pacer catheter tomorrow. (2) Cardiac arrest: Code(s): I46.9 - Cardiac arrest, cause unspecified Status: Acute Assessment and Plan: Continue supportive care. Prognosis is guarded. (3) Shock: Code(s): R57.9 - Shock, unspecified Status: Acute Assessment and Plan: Wean pressors as tolerated. (4) Anoxic brain injury: Code(s): G93.1 - Anoxic brain damage, not elsewhere classified Status: Acute Assessment and Plan: There is concern for anoxic brain injury. (5) Sepsis: Code(s): A41.9 - Sepsis, unspecified organism Status: Acute Assessment and Plan: On antibiotics as per primary team. (6) LENIN (acute kidney injury): Code(s): N17.9 - Acute kidney failure, unspecified Status: Acute Assessment and Plan: Monitor renal function (7) Rhabdomyolysis: Code(s): M62.82 - Rhabdomyolysis Status: Acute Assessment and Plan: CK is currently uptrending -- 1223 --> 3993 --> 4707 Plan Recommendations and plan discussed with [employer]. Subjective Date/time seen: 11/03/23 09:45 Interval history: Reason for visit: STEMI, cardiac arrest HPI: This is a 78-year-old woman who I was called to bring to the blood bank laboratory technologist late this evening because of cardiac arrest following resuscitation she appears to have inferior ST-elevation ME. There is no previous cardiac history. The patient was found asystolic at her residence. She also had a ventricular tachycardia arrest in the ambulance on the way to the hospital and a ventricular fibrillation arrest in the emergency department. Patient has morbid obesity, hypoventilation, diabetes and dyslipidemia in her medical history. Obviously the patient is currently unresponsive and no direct history is obtainable. Date of service 11/02: Remains intubated, on pressors. In sinus rhythm, not requiring temporary pacer. Review of Systems Review of Systems: ROS unobtainable: Yes unobtainable due to endotracheal tube Exam Const: Other: Critically ill female, intubated, on multiple drips HENMT: Other: OETT in place Resp: Other: On mechanical ventilation Cardio: Rate: regular rate Rhythm: regular rhythm
[2023-11-03] MEDS: CISATRACURIUM BESYLATE 200 MG in DEXTROSE 5% 80 ML 8.48 ML IV CONT (09:48)
[2023-11-03] MEDS: CEFEPIME 1 GM/NS 50 ML 1 GM/50 ML BAG IVPB ×2 (09:52→20:13)
[2023-11-03] MEDS: INSULIN HUMAN REGULAR (*BKC) 100 UNITS in SODIUM CHLORIDE 0.9% IV 99 ML 9.4 UNITS IV CONT (10:06)
[2023-11-03] MEDS: ENOXAPARIN 40 MG/0.4 ML SYRINGE SUB-Q (10:13)
[2023-11-03] MEDS: ASPIRIN 81 MG CHEWABLE TABLET PO (10:16)
[2023-11-03] MEDS: PANTOPRAZOLE SODIUM IV 40 MG VIAL IV PUSH (10:16)
[2023-11-03] MEDS: TICAGRELOR 90 MG TABLET PO ×2 (10:16→20:12)
[2023-11-03] MEDS: TOLNAFTATE 1% POWDER 45 GM BTL 1 APPLIC TOPICAL ×2 (10:17→20:14)
[2023-11-03] MEDS: metroNIDAZOLE 500 MG/ISO 100ML 500 MG/100 ML BAG 100 MG IVPB ×3 (10:17→22:08)
[2023-11-03] MEDS: SODIUM CHLORIDE 0.9% IV 1,000 ML 75 ML IV CONT (10:38)
[2023-11-03 10:55] LABS: Anion Gap 18 mmol/L (4-12); Blood Urea Nitrogen 46 mg/dL (7-17); Calcium 7.1 mg/dL (8.4-10.2); Carbon Dioxide 14 mmol/L (22-30); Chloride 104 mmol/L (98-107); Estimated CRCL calculation 28 ml/min; Estimated Glomerular Filt Rate 31; Glucose 363 mg/dL (65-110); Potassium 4.6 mmol/L (3.4-5.0); Sodium 136 mmol/L (137-145)
[2023-11-03 11:12] LABS: Procalcitonin 6.5 ng/mL
[2023-11-03 11:37] LABS: Glucose Point of Care 273 mg/dl (65-105)
--- NOTE | 2023-11-03 12:12 | P.CONNP_ITS ---
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/dialysis * follow repeat labs and UOP (2) Chronic kidney disease, stage 3: Code(s): N18.30 - Chronic kidney disease, stage 3 unspecified Status: Chronic Assessment and Plan: * baseline creatinine runs ~ 1.1 - 1.3mg/dl * hence, she fluctuates between CKD stage 3A and stage 3B * presumably secondary to cardiac/vascular disease, HTN, diabetes, ALMA/OSH, obesity, and age-related change (3) Cardiac arrest: Code(s): I46.9 - Cardiac arrest, cause unspecified Status: Acute Assessment and Plan: * presumably secondary to STEMI * s/p cardiac cath with PCI/stent placement * on DAPT * BB/LAUREN-I/statin on hold given hemodynamics and elevated CPK * follow-up on Echo * Cardiology following (4) Acute respiratory failure with hypoxia: Code(s): J96.01 - Acute respiratory failure with hypoxia Status: Acute Assessment and Plan: * secondary to cardiac arrest * complicated by known history of chronic respiratory failure from OHS and ALMA * possible componet of pneumonia (aspiration?) * on ventilator support * continue supportive therapy (5) ST elevation (STEMI) myocardial infarction: Qualifiers: Involved coronary artery: unspecified coronary artery Qualified Code(s): I21.3 - ST elevation (STEMI) myocardial infarction of unspecified site Code(s): I21.3 - ST elevation (STEMI) myocardial infarction of unspecified site Status: Acute Assessment and Plan: * see #3 (6) Shock: Code(s): R57.9 - Shock, unspecified Status: Acute Assessment and Plan: * due to secondary to STEMI/cardiac arrest * component of sepsis from aspiration pneumonia(?) * on vasopressor support - wean as tolerated * follow culture data * on antibiotics (7) Insulin dependent diabetes mellitus: Status: Acute Assessment and Plan: * follow accu-cheks * on insulin gtt * glycemic control per clin nurse spec/hospitalists I will continue to follow the patient with you while she remains hospitalized and make further recommendations as deemed necessary. Thank you for allowing me to participate in care of this patient. History of Present Illness Reason for Consult Consult date: 11/03/23 Reason for consult: acute renal failure (on chronic kidney disease) Chief Complaint Chief complaint: CARDIAC ARREST History of Present Illness Narrative: All of the information that I have obtained is from review of the electronic medical record as well as discussion with the physicians/ nurses involved in the patient's care as the patient is unable to provide me with any history as she is currently intubated and on mechanical ventilation. The patient is a 78-year-old female with a past medical history as outlined below who presented to [facility] Emergency room yesterday evening after being found unresponsive. The patient resides in a nursing facilit
--- NOTE | 2023-11-03 12:12 | PM.CNNEP ---
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/dialysis follow repeat labs and UOP (2) Chronic kidney disease, stage 3: Code(s): N18.30 - Chronic kidney disease, stage 3 unspecified Status: Chronic Assessment and Plan: baseline creatinine runs ~ 1.1 - 1.3mg/dl hence, she fluctuates between CKD stage 3A and stage 3B presumably secondary to cardiac/vascular disease, HTN, diabetes, ALMA/OSH, obesity, and age-related change (3) Cardiac arrest: Code(s): I46.9 - Cardiac arrest, cause unspecified Status: Acute Assessment and Plan: presumably secondary to STEMI s/p cardiac cath with PCI/stent placement on DAPT BB/LAUREN-I/statin on hold given hemodynamics and elevated CPK follow-up on Echo Cardiology following (4) Acute respiratory failure with hypoxia: Code(s): J96.01 - Acute respiratory failure with hypoxia Status: Acute Assessment and Plan: secondary to cardiac arrest complicated by known history of chronic respiratory failure from OHS and ALMA possible componet of pneumonia (aspiration?) on ventilator support continue supportive therapy (5) ST elevation (STEMI) myocardial infarction: Qualifiers: Involved coronary artery: unspecified coronary artery Qualified Code(s): I21.3 - ST elevation (STEMI) myocardial infarction of unspecified site Code(s): I21.3 - ST elevation (STEMI) myocardial infarction of unspecified site Status: Acute Assessment and Plan: see #3 (6) Shock: Code(s): R57.9 - Shock, unspecified Status: Acute Assessment and Plan: due to secondary to STEMI/cardiac arrest component of sepsis from aspiration pneumonia(?) on vasopressor support - wean as tolerated follow culture data on antibiotics (7) Insulin dependent diabetes mellitus: Status: Acute Assessment and Plan: follow accu-cheks on insulin gtt glycemic control per elevator supervisor/hospitalists I will continue to follow the patient with you while she remains hospitalized and make further recommendations as deemed necessary. Thank you for allowing me to participate in care of this patient. History of Present Illness Reason for Consult Consult date: 11/03/23 Reason for consult: acute renal failure (on chronic kidney disease) Chief Complaint Chief complaint: CARDIAC ARREST History of Present Illness Narrative: All of the information that I have obtained is from review of the electronic medical record as well as discussion with the physicians/ nurses involved in the patient's care as the patient is unable to provide me with any history as she is currently intubated and on mechanical ventilation. The patient is a 78-year-old female with a past medical history as outlined below who presented to [facility] Emergency room yesterday evening after being found unresponsive. The patient resides in a nursing facility and the staff there noted that the patient was unresponsive on their assessment. It is not entirely clear how long she was unresponsive before nursing staff noted her condition but EMS was immediately contacted following this change in her condition. Apparently, by the time of EMS arrival, she was noted to be in asystole. ACLS protocol was initiated and the patient was subsequently transferred to the emergency room for further assessment. Apparently, in ro
[2023-11-03] MEDS: PERFLUTREN LIPID MICROSPHERES 1.5 ML VIAL DILUTED TO 10 ML TOTAL VOLUME IV PUSH (12:18)
--- NOTE | 2023-11-03 12:42 | IVDEFINITY ---
Prior to administration of IV Definity the patient was educated on the risks and benefits of the imaging enhancing agent including potential adverse side effects. The patient verbalized understanding. Allergies were verified. No exclusion criteria were identified and at least one of the following inclusion criteria were met: 1) physician request, 2) patient technically difficult to image (per the [place] [employer]ocardi[employer] guidelines of two or more segments not discernable within the apical view), or 3) questionable left ventricular function. ?
[2023-11-03] MEDS: CENTRAL LINE FLUSH 10 ML IV PUSH ×2 (14:13→22:09)
[2023-11-03 15:03] LABS: Anion Gap 9 mmol/L (4-12); Blood Urea Nitrogen 43 mg/dL (7-17); Calcium 7.7 mg/dL (8.4-10.2); Carbon Dioxide 27 mmol/L (22-30); Chloride 105 mmol/L (98-107); Estimated CRCL calculation 32 ml/min; Estimated Glomerular Filt Rate 36; Glucose 150 mg/dL (65-110); Potassium 3.2 mmol/L (3.4-5.0); Sodium 141 mmol/L (137-145)
[2023-11-03] MEDS: KCL 40 MEQ/WATER 100 ML 100 ML 25 ML IVPB (16:34)
[2023-11-03] MEDS: POTASSIUM CHLORIDE 20 MEQ PACKET (FOR LIQUID) 40 MEQ FEED TUBE (16:35)
[2023-11-03 17:44] LABS: Hematocrit 32.1 % (37.0-47.0); Hemoglobin 9.8 g/dL (12.0-15.0); Mean Corpuscular HGB Conc 30.5 g/dl (32-36); Mean Corpuscular Hemoglobin 27.7 pg (26-34); Mean Corpuscular Volume 90.7 fl (80-100); Mean Platelet Volume 10.1 fl (7.4-10.4); Platelet Count Result 356 k/mm3 (150-375); Red Blood Count 3.54 M/mm3 (4.2-5.4); Red Cell Distribution Width 19.2 % (11.5-14.5)
[2023-11-03 17:55] LABS: INR 1.3; Prothrombin Time 17.1 Seconds (11.1-14.7)
[2023-11-03 17:56] LABS: Magnesium 1.8 mg/dL (1.6-2.3); Partial Thromboplastin Time 31.5 Seconds (22.3-36.8); Phosphorus 3.8 mg/dL (2.5-4.5)
[2023-11-03 18:05] LABS: Glucose Point of Care 332 mg/dl (65-105)
[2023-11-03 18:05] LABS: Glucose Point of Care 196 mg/dl (65-105)
[2023-11-03 18:05] LABS: Glucose Point of Care 279 mg/dl (65-105)
[2023-11-03 18:05] LABS: Glucose Point of Care 219 mg/dl (65-105)
[2023-11-03 18:05] LABS: Glucose Point of Care 157 mg/dl (65-105)
[2023-11-03] MEDS: CISATRACURIUM BESYLATE 200 MG in DEXTROSE 5% 80 ML 7.07 ML IV CONT (19:27)
[2023-11-03] MEDS: ATORVASTATIN 40 MG TABLET 80 MG PO (20:12)
[2023-11-03 21:13] LABS: Glucose Point of Care 138 mg/dl (65-105)
[2023-11-03 21:13] LABS: Glucose Point of Care 145 mg/dl (65-105)
[2023-11-03 21:13] LABS: Glucose Point of Care 150 mg/dl (65-105)
[2023-11-03 21:22] LABS: Creatinine Urine 65.1 mg/dL; Total Protein Urine Random 14 mg/dL; Urea Random Urine 549 MG/DL
[2023-11-03 21:25] LABS: Anion Gap 7 mmol/L (4-12); Blood Urea Nitrogen 42 mg/dL (7-17); Calcium 8.1 mg/dL (8.4-10.2); Carbon Dioxide 25 mmol/L (22-30); Chloride 109 mmol/L (98-107); Estimated CRCL calculation 35 ml/min; Estimated Glomerular Filt Rate 40; Glucose 140 mg/dL (65-110); Potassium 5.1 mmol/L (3.4-5.0); Sodium 141 mmol/L (137-145)
[2023-11-03 21:30] LABS: Sodium Urine Random 5 meq/L
[2023-11-03 21:32] LABS: Creatinine Urine 65.1 mg/dL; Total Protein Urine Random 14 mg/dL; Ur Ttl Prot Creatinine Ratio 0.22 mg/mg (0-0.20)
[2023-11-03 21:38] LABS: Eosinophil Urine None Seen % (None Seen); Urine Eos QC 2nd Tech Confirmed
[2023-11-03 22:24] LABS: Glucose Point of Care 127 mg/dl (65-105)
[2023-11-03] MEDS: FENTANYL 2,500MCG/NS250ML(*CRX 2,500 MCG/250 ML BAG 10 MCG IV CONT (23:27)
[2023-11-04] VITALS (47 sets, daily range): BP systolic 93–128; BP diastolic 49–62; PULSE 64–95; RESP 18–24; TEMP 34.8–38.2; O2SAT 90–97
[2023-11-04] MEDS: MIDAZOLAM 100MG/NS 100ML(*CRX) 100 MG/100 ML BAG IV CONT (00:34)
[2023-11-04 00:42] LABS: Glucose Point of Care 129 mg/dl (65-105)
[2023-11-04 00:42] LABS: Glucose Point of Care 123 mg/dl (65-105)
[2023-11-04 01:41] LABS: Anion Gap 9 mmol/L (4-12); Blood Urea Nitrogen 39 mg/dL (7-17); Calcium 8.1 mg/dL (8.4-10.2); Carbon Dioxide 24 mmol/L (22-30); Chloride 110 mmol/L (98-107); Estimated CRCL calculation 35 ml/min; Estimated Glomerular Filt Rate 40; Glucose 109 mg/dL (65-110); Potassium 3.9 mmol/L (3.4-5.0); Sodium 143 mmol/L (137-145)
[2023-11-04 01:43] LABS: Glucose Point of Care 109 mg/dl (65-105)
[2023-11-04 02:48] LABS: Glucose Point of Care 109 mg/dl (65-105)
[2023-11-04 04:01] LABS: Glucose Point of Care 88 mg/dl (65-105)
[2023-11-04 04:40] LABS: Glucose Point of Care 84 mg/dl (65-105)
[2023-11-04 05:11] LABS: Alveolar/Arterial O2 Gradient 120.4 mmHg; Base Excess ABG -0.8 mEq/l (+/-2.0); Carboxyhemoglobin 0.7 % THb (0-2.0); Fractional Inspired Oxygen 30 %; Methemoglobin ABG 0.3 %THb (0-1.5); Oxygen Content ABG 12.9 %vol (16.0-22.0); Oxygen Saturation ABG 94.8 % (95.0-100.0); Oxyhemoglobin 91.3 % THb (90.0-100.0); PCO2 ABG 25.6 mmHg (35.0-45.0); PO2 ABG 63.4 mmHg (80.0-100.0); PO2 FiO2 Ratio Arterial Blood 2.11 %; Reduced Hemoglobin 7.7 %THb (0-5.0)
[2023-11-04 05:14] LABS: Arterial Blood Gas PEEP 10 cmH2O; Arterial Blood Gas Tidal Volume 450 ml; Arterial Blood Gas Vent Mode CMV; Arterial Blood Gas Ventilator rate 24 /MIN; Device VENTILATOR; Modified Allen's Test Pass; Site Drawn RIGHT RADIAL; pH ABG 7.531 (7.350-7.450)
[2023-11-04 05:51] LABS: INR 1.3; Prothrombin Time 16.5 Seconds (11.1-14.7)
[2023-11-04 05:52] LABS: Anion Gap 9 mmol/L (4-12); Blood Urea Nitrogen 37 mg/dL (7-17); Calcium 8.3 mg/dL (8.4-10.2); Carbon Dioxide 25 mmol/L (22-30); Chloride 110 mmol/L (98-107); Creatine Kinase 1526 U/L (30-135); Estimated CRCL calculation 35 ml/min; Estimated Glomerular Filt Rate 40; Glucose 90 mg/dL (65-110); Phosphorus 3.8 mg/dL (2.5-4.5); Potassium 3.7 mmol/L (3.4-5.0); Sodium 144 mmol/L (137-145)
[2023-11-04 05:53] LABS: Partial Thromboplastin Time 26.7 Seconds (22.3-36.8)
[2023-11-04] MEDS: CENTRAL LINE FLUSH 10 ML IV PUSH ×3 (06:12→21:00)
[2023-11-04] MEDS: metroNIDAZOLE 500 MG/ISO 100ML 500 MG/100 ML BAG 100 MG IVPB ×3 (06:12→21:00)
[2023-11-04 06:28] LABS: Glucose Point of Care 91 mg/dl (65-105)
[2023-11-04 06:28] LABS: Glucose Point of Care 95 mg/dl (65-105)
[2023-11-04 07:39] LABS: Glucose Point of Care 88 mg/dl (65-105)
[2023-11-04] MEDS: CEFEPIME 1 GM/NS 50 ML 1 GM/50 ML BAG IVPB (08:20)
[2023-11-04] MEDS: ASPIRIN 81 MG CHEWABLE TABLET PO (08:20)
[2023-11-04] MEDS: TICAGRELOR 90 MG TABLET PO ×2 (08:20→20:16)
[2023-11-04] MEDS: ENOXAPARIN 40 MG/0.4 ML SYRINGE SUB-Q (08:21)
[2023-11-04] MEDS: POTASSIUM CHLORIDE 20 MEQ PACKET (FOR LIQUID) 40 MEQ FEED TUBE (08:21)
[2023-11-04] MEDS: INSULIN GLARGINE (*BKC) 100 UNITS/ML 20 UNITS SUB-Q (08:21)
[2023-11-04 08:22] LABS: Glucose Point of Care 83 mg/dl (65-105)
[2023-11-04] MEDS: levETIRAcetam 500MG/NACL 100ML 500 MG/100 ML BAG 400 MG IVPB ×2 (08:22→20:18)
[2023-11-04] MEDS: PANTOPRAZOLE SODIUM IV 40 MG VIAL IV PUSH (08:23)
[2023-11-04] MEDS: MINERAL OIL/WHITE PETROLATUM OINTMENT 1 APPLIC EACH EYE ×2 (08:23→20:29)
[2023-11-04] MEDS: TOLNAFTATE 1% POWDER 45 GM BTL 1 APPLIC TOPICAL ×2 (08:27→20:31)
--- NOTE | 2023-11-04 08:30 | WPDINTPN ---
Progress Note: A&P Assessment and Plan (1) Cardiac arrest: Code(s): I46.9 - Cardiac arrest, cause unspecified Status: Acute Assessment and Plan: Cardiac arrest secondary to STEMI Patient now status post PCI and stent placement in RCA Continue management with dual antiplatelet therapy and statin Hold beta-autumn or LAUREN-inhibitor due to shock and renal failure Echo Summary 1. Left ventricular chamber dimension is normal. 2. Left ventricular systolic function is normal, estimated at 65-70%. 3. There is mildly increased left ventricular wall thickness. 4. The left ventricular diastolic function is grade I diastolic dysfunction. 5. Right ventricular chamber dimension is mildly enlarged. 6. Left atrial chamber dimension is mildly enlarged. 7. There is mild mitral valve regurgitation. 8. There is mild tricuspid valve regurgitation. (2) LENIN (acute kidney injury): Code(s): N17.9 - Acute kidney failure, unspecified Status: Acute Assessment and Plan: Multifactorial acute renal failure likely secondary to cardiac arrest shock and respiratory failure Patient overall volume overloaded and will hold further IV fluids Monitor urine output electrolytes and creatinine Creatinine improved 1.3 Nephrology consulted Off IV fluid with bicarb as metabolic acidosis improved (3) Rhabdomyolysis: Code(s): M62.82 - Rhabdomyolysis Status: Acute Assessment and Plan: Could be secondary to hypothermia protocol Patient currently on Nimbex infusion to minimize shivering Monitor CK level Now off of IV fluids (4) ST elevation (STEMI) myocardial infarction: Qualifiers: Involved coronary artery: unspecified coronary artery Qualified Code(s): I21.3 - ST elevation (STEMI) myocardial infarction of unspecified site Code(s): I21.3 - ST elevation (STEMI) myocardial infarction of unspecified site Status: Acute Assessment and Plan: See above (5) Insulin dependent diabetes mellitus: Status: Acute Assessment and Plan: Uncontrolled diabetes mellitus with hyperglycemia Currently on insulin infusion Will transition to Lantus and sliding scale insulin (6) Acute respiratory failure with hypoxia: Code(s): J96.01 - Acute respiratory failure with hypoxia Status: Acute Assessment and Plan: Patient has history of chronic respiratory failure secondary to obesity hypoventilation and obstructive sleep apnea Patient is a chronic CO2 retainer Patient now intubated and sedated due to cardiac arrest chest x-ray shows pulmonary possible pneumonia which could be aspiration She also has a small right pleural effusion Chest x-ray reviewed and endotracheal tube is in acceptable position Hold further bolus IV fluids ABG reviewed and decrease tidal volume to 400 and rate to 18. Decrease PEEP to 8 Bronchodilators ordered Treatment of pneumonia as below (7) Encephalopathy: Code(s): G93.40 - Encephalopathy, unspecified Status: Acute Assessment and Plan: Multifactorial encephalopathy as patient is sedated but patient does appear to anoxic brain injury She is currently sedated and chemically paralyzed. CT on presentation was negative Examination as above She has completed TTM protocol and will be rewarming this morning Continue Keppra DC Nimbex infusion Will perform sedation holiday once paralytic wears off (8) Anoxic brain injury: Code(s): G93.1 - Anoxic brain damage, not elsewhere classified Status: Acute Assessment and Plan: See above (9) Shock: Code(s): R57.9 - Shock, unspecified Status: Acute Assessment and Plan: Make shock likely secondary to STEMI cardiac arrest sedation and possibly sepsis from aspiration pneumonia Currently off of Levophed Off of IV fluids (10) Sepsis: Code(s): A41.9 - Sepsis, unspecified organism Status: Acute Assessment and Plan: UA shows WBC but nega
--- NOTE | 2023-11-04 08:42 | PM.PNNEP ---
Progress Note: A&P Assessment and Plan (1) LENIN (acute kidney injury): Code(s): N17.9 - Acute kidney failure, unspecified Status: Acute Assessment and Plan: as noted on admission improvement noted/if not back to baseline suspect ATN with multifactorial etiology: hemodynamic instability/shock cardiac arrest acute respiratory failure possible prerenal factors diuretic use prior to admission contrast use (although creatinine was already elevated prior to exposure) element of rhabdomyolysis (elevated CPK) evaluation to date: CPK trending down urine electrolytes prerenal urine eosinophils negative mild proteinuria follow repeat labs and UOP (2) Chronic kidney disease, stage 3: Code(s): N18.30 - Chronic kidney disease, stage 3 unspecified Status: Chronic Assessment and Plan: baseline creatinine runs ~ 1.1 - 1.3mg/dl hence, she fluctuates between CKD stage 3A and stage 3B presumably secondary to cardiac/vascular disease, HTN, diabetes, ALMA/OSH, obesity, and age-related change (3) Cardiac arrest: Code(s): I46.9 - Cardiac arrest, cause unspecified Status: Acute Assessment and Plan: presumably secondary to STEMI s/p cardiac cath with PCI/stent placement on DAPT BB/LAUREN-I/statin on hold given hemodynamics and elevated CPK Echo results noted Cardiology following (4) Acute respiratory failure with hypoxia: Code(s): J96.01 - Acute respiratory failure with hypoxia Status: Acute Assessment and Plan: secondary to cardiac arrest complicated by known history of chronic respiratory failure from OHS + ALMA possible component of pneumonia (aspiration?) on ventilator support continue supportive therapy (5) ST elevation (STEMI) myocardial infarction: Qualifiers: Involved coronary artery: unspecified coronary artery Qualified Code(s): I21.3 - ST elevation (STEMI) myocardial infarction of unspecified site Code(s): I21.3 - ST elevation (STEMI) myocardial infarction of unspecified site Status: Acute Assessment and Plan: see #3 (6) Shock: Code(s): R57.9 - Shock, unspecified Status: Acute Assessment and Plan: resolving/resolved due to secondary to STEMI/cardiac arrest component of sepsis from aspiration pneumonia(?) off vasopressor support follow culture data on antibiotics (7) Insulin dependent diabetes mellitus: Status: Acute Assessment and Plan: follow accu-cheks glycemic control per returner/hospitalists Will continue to follow. Subjective Date/time seen: 11/04/23 08:42 Interval history: Follow-up for acute kidney injury/acute renal failure on chronic kidney disease. Remains intubated/sedated/paralyzed and on mechanical ventilation at the time of my visit; vasopressor have since been weaned off with relative stability in hemodynamics, better/increased urine output in the last 24 hours with improvement in renal function/creatinine as well; no acute issues/events overnight or earlier this morning. Exam Narrative: General: elderly female intubated/sedated/paralyzed and on mechanical ventilation Heart: normal S1 and S2; no rub Lungs: coarse breath sounds Abdomen: soft, nontender, nondistended, hypoactive bowel sounds Extremities: no cyanosis or clubbing; no edema Skin: warm and dry Objective Data Vital Signs Vital Signs: Vital Signs Temp Pulse Resp BP Pulse Ox O2 Del Method FiO2 11/04/23 08:00 94.6 F L 64 24 H 99/56 L 95 Mechanical Ventilation 30 11/04/23 08:00 64 24 H 11/04/23 07:49 68 24 H 102/57 L 11/04/23 07:00 94.8 F L 67 24 H 104/59 L 94 11/04/23 06:30 69 24 H 11/04/23 06:30 69 24 H 11/04/23 06:30 69 119/61 11/04/23 06:30 69 24 H 119/61 11/04/23 05:30 68 24 H 11/04/23 05:30 68 24 H 11/04/23 05:30 68 102/62
--- NOTE | 2023-11-04 08:42 | P.PNNP_ITS ---
Progress Note: A&P Assessment and Plan (1) LENIN (acute kidney injury): Code(s): N17.9 - Acute kidney failure, unspecified Status: Acute Assessment and Plan: * as noted on admission * improvement noted/if not back to baseline * suspect ATN with multifactorial etiology: * hemodynamic instability/shock * cardiac arrest * acute respiratory failure * possible prerenal factors * diuretic use prior to admission * contrast use (although creatinine was already elevated prior to exposure) * element of rhabdomyolysis (elevated CPK) * evaluation to date: * CPK trending down * urine electrolytes prerenal * urine eosinophils negative * mild proteinuria * follow repeat labs and UOP (2) Chronic kidney disease, stage 3: Code(s): N18.30 - Chronic kidney disease, stage 3 unspecified Status: Chronic Assessment and Plan: * baseline creatinine runs ~ 1.1 - 1.3mg/dl * hence, she fluctuates between CKD stage 3A and stage 3B * presumably secondary to cardiac/vascular disease, HTN, diabetes, ALMA/OSH, obesity, and age-related change (3) Cardiac arrest: Code(s): I46.9 - Cardiac arrest, cause unspecified Status: Acute Assessment and Plan: * presumably secondary to STEMI * s/p cardiac cath with PCI/stent placement * on DAPT * BB/LAUREN-I/statin on hold given hemodynamics and elevated CPK * Echo results noted * Cardiology following (4) Acute respiratory failure with hypoxia: Code(s): J96.01 - Acute respiratory failure with hypoxia Status: Acute Assessment and Plan: * secondary to cardiac arrest * complicated by known history of chronic respiratory failure from OHS + ALMA * possible component of pneumonia (aspiration?) * on ventilator support * continue supportive therapy (5) ST elevation (STEMI) myocardial infarction: Qualifiers: Involved coronary artery: unspecified coronary artery Qualified Code(s): I21.3 - ST elevation (STEMI) myocardial infarction of unspecified site Code(s): I21.3 - ST elevation (STEMI) myocardial infarction of unspecified site Status: Acute Assessment and Plan: * see #3 (6) Shock: Code(s): R57.9 - Shock, unspecified Status: Acute Assessment and Plan: * resolving/resolved * due to secondary to STEMI/cardiac arrest * component of sepsis from aspiration pneumonia(?) * off vasopressor support * follow culture data * on antibiotics (7) Insulin dependent diabetes mellitus: Status: Acute Assessment and Plan: * follow accu-cheks * glycemic control per design engineering intern/hospitalists Will continue to follow. Subjective Date/time seen: 11/04/23 08:42 Interval history: Follow-up for acute kidney injury/acute renal failure on chronic kidney disease. Remains intubated/sedated/paralyzed and on mechanical ventilation at the time of my visit; vasopressor have since been weaned off with relative stability in hemodynamics, better/increased urine output in the last 24 hours with improvement in renal function/creatinine as well; no acute issues/events overnight or earlier this morning. Exam Narrative: General: elderly female intubated/sedated/paralyzed and on mechanical ventilation Heart: normal S1 and S2; no rub Lungs: coarse breath sounds Abdomen: soft, nontender, nondistended, hypoactive bowel sounds Extremities: no cyanosis or clubbing; no edema Skin: warm and dry Objective [place]
[2023-11-04 08:48] LABS: Hematocrit 30.2 % (37.0-47.0); Mean Corpuscular HGB Conc 29.8 g/dl (32-36); Mean Corpuscular Hemoglobin 27.4 pg (26-34); Mean Corpuscular Volume 92.1 fl (80-100); Mean Platelet Volume 10.5 fl (7.4-10.4); Platelet Count Result 314 k/mm3 (150-375); Red Blood Count 3.28 M/mm3 (4.2-5.4); Red Cell Distribution Width 20.1 % (11.5-14.5); White Blood Count 11.1 K/mm3 (4.5-10.0)
--- NOTE | 2023-11-04 09:39 | PM.PNCARD ---
Progress Note: A&P Assessment and Plan (1) ST elevation (STEMI) myocardial infarction: Qualifiers: Involved coronary artery: unspecified coronary artery Qualified Code(s): I21.3 - ST elevation (STEMI) myocardial infarction of unspecified site Code(s): I21.3 - ST elevation (STEMI) myocardial infarction of unspecified site Status: Acute Assessment and Plan: Cardiac catheterization showed: 1. Right coronary dominant circulation with acute ST-elevation CO presenting with [id number] asystolic arrest followed by ventricular tachycardia arrest followed by ventricular fibrillation arrest. Right coronary artery is 100% occluded proximally at the start of the case. 2. Moderate to high-grade 80% proximal LAD stenosis which is significantly calcified 3. Surprisingly good left ventricular systolic function 4. Successful RCA intervention involving balloon angioplasty, a penumbra thrombectomy and stenting using the inSparqiro drug-eluting stent resulting in a very nice angiographic result. 5. Junctional bradycardia at the conclusion of the case we elected to place temporary transvenous pacemaker prior to the patient going to the ICU. Continue ASA 81mg once daily indefinitely. Continue Brilinta 90mg BID for at least 1 year. Continue high intensity statin. Echocardiogram shows LVEF 65-70%, mild MR, mild TR If patient survives this, will eventually need PCI fo the proximal LAD stenosis, which would not be amenable to PCI here at this institution due to it being a heavily calcified stenosis. Patient is currently in sinus rhythm, has not required pacer since post-cath. Transvenous pacer catheter removed today at beside. (2) Cardiac arrest: Code(s): I46.9 - Cardiac arrest, cause unspecified Status: Acute Assessment and Plan: Continue supportive care. Currently beign rewarmed. Prognosis is guarded. (3) Shock: Code(s): R57.9 - Shock, unspecified Status: Acute Assessment and Plan: Wean pressors as tolerated. (4) Anoxic brain injury: Code(s): G93.1 - Anoxic brain damage, not elsewhere classified Status: Acute Assessment and Plan: There is concern for anoxic brain injury. (5) Sepsis: Code(s): A41.9 - Sepsis, unspecified organism Status: Acute Assessment and Plan: On antibiotics as per primary team. (6) LENIN (acute kidney injury): Code(s): N17.9 - Acute kidney failure, unspecified Status: Acute Assessment and Plan: Nephrology consulted. (7) Rhabdomyolysis: Code(s): M62.82 - Rhabdomyolysis Status: Acute Assessment and Plan: CK peaked at 4707 Plan Recommendations and plan discussed with Biofuels Technology Manager. Subjective Date/time seen: 11/04/23 09:39 Interval history: Reason for visit: STEMI, cardiac arrest HPI: This is a 78-year-old woman who I was called to bring to the labor operator late this evening because of cardiac arrest following resuscitation she appears to have inferior ST-elevation CO. There is no previous cardiac history. The patient was found asystolic at her residence. She also had a ventricular tachycardia arrest in the ambulance on the way to the hospital and a ventricular fibrillation arrest in the emergency department. Patient has morbid obesity, hypoventilation, diabetes and dyslipidemia in her medical history. Obviously the patient is currently unresponsive and no direct history is obtainable. Date of service 11/02: Remains intubated, on pressors. In sinus rhythm, not requiring temporary pacer. Date of service 11/03: Sedation stopped this morning. Rewarming phase started this morning at 7:30. Remains in sinus rhythm with no issues with bradycardia or other arrhythmias. Review of Systems Review of Systems: All systems reviewed & are unremarkable except as noted in HPI and below (HPI) Exam Const: Other: Critically ill female, intubated, on multiple drips HE
--- NOTE | 2023-11-04 11:15 | PCFNICU ---
ICU Rounding Note: Pt current nutrition is Vital AF 1.2 at 20 ml/hr/ Nutrition recommendation: Goal rate at 55 ml/hr. Last recorded weight is 94.3 kg, up from 94.2 kg on admit. Bowel Motility: FMS Labs Reviewed:Cr 1.3,BUN 37, GFR 40 Meds Noted:Flagyl, Keppra, Lantus, NovoLog Skin: WNL Additional Notes: Discussion with MD in rounds regarding nutrition. Plans to start tube feedings today of Vital AF 1.2 at 20 ml/hr. Recommend goal rate at 55 ml/hr when medical able. Flush 30 ml q 4 hours. Agree with diet orders. Following daily in ICU rounds. Will monitor weight, labs, skin, diet orders, meds every Wednesday and Wednesday.
[2023-11-04 12:19] LABS: Glucose Point of Care 75 mg/dl (65-105)
[2023-11-04 15:37] LABS: Glucose Point of Care 84 mg/dl (65-105)
[2023-11-04] MEDS: ACETAMINOPHEN ELIXIR 325 MG/10.15 ML UDC 650 MG PO (16:10)
[2023-11-04] MEDS: ATORVASTATIN 40 MG TABLET 80 MG PO (20:15)
[2023-11-04] MEDS: CEFEPIME 2 GM/NS 50 ML 2 GM/50 ML BAG IVPB (20:26)
[2023-11-04 21:03] LABS: Glucose Point of Care 98 mg/dl (65-105)
[2023-11-04 23:37] LABS: Glucose Point of Care 105 mg/dl (65-105)
[2023-11-05] VITALS (29 sets, daily range): BP systolic 123–159; BP diastolic 52–85; PULSE 88–101; RESP 18–29; TEMP 37.2–38.7; O2SAT 94–97
[2023-11-05 05:01] LABS: Hematocrit 31.8 % (37.0-47.0); Hemoglobin 9.3 g/dL (12.0-15.0); Mean Corpuscular HGB Conc 29.2 g/dl (32-36); Mean Corpuscular Hemoglobin 27.4 pg (26-34); Mean Corpuscular Volume 93.8 fl (80-100); Mean Platelet Volume 9.8 fl (7.4-10.4); Platelet Count Result 358 k/mm3 (150-375); Red Blood Count 3.39 M/mm3 (4.2-5.4); Red Cell Distribution Width 20.6 % (11.5-14.5); White Blood Count 13.3 K/mm3 (4.5-10.0)
[2023-11-05] MEDS: ACETAMINOPHEN ELIXIR 325 MG/10.15 ML UDC 650 MG PO (05:02)
[2023-11-05] MEDS: metroNIDAZOLE 500 MG/ISO 100ML 500 MG/100 ML BAG 100 MG IVPB ×3 (05:02→21:33)
[2023-11-05] MEDS: CENTRAL LINE FLUSH 10 ML IV PUSH ×3 (05:13→21:33)
[2023-11-05 05:18] LABS: Alanine Aminotransferase 377 U/L (6-35); Albumin Level 3.3 g/dL (3.5-5.1); Alkaline Phosphatase 90 U/L (38-126); Anion Gap 7 mmol/L (4-12); Aspartate Amino Transferase 723 U/L (14-36); Bilirubin,Total 0.5 mg/dL (0.2-1.3); Blood Urea Nitrogen 37 mg/dL (7-17); Calcium 8.3 mg/dL (8.4-10.2); Carbon Dioxide 25 mmol/L (22-30); Chloride 113 mmol/L (98-107); Creatine Kinase 596 U/L (30-135); Estimated CRCL calculation 35 ml/min; Estimated Glomerular Filt Rate 40; Glucose 160 mg/dL (65-110); Magnesium 2.2 mg/dL (1.6-2.3); Phosphorus 3.1 mg/dL (2.5-4.5); Potassium 4.4 mmol/L (3.4-5.0); Sodium 145 mmol/L (137-145)
[2023-11-05 06:09] LABS: Alveolar/Arterial O2 Gradient 148.9 mmHg; Base Excess ABG -1.8 mEq/l (+/-2.0); Carboxyhemoglobin 1.4 % THb (0-2.0); Fractional Inspired Oxygen 40 %; HCO3 ABG 23.3 mEq/l (22.0-26.0); Methemoglobin ABG 0.2 %THb (0-1.5); Oxygen Content ABG 20.4 %vol (16.0-22.0); Oxygen Saturation ABG 96.6 % (95.0-100.0); Oxyhemoglobin 94.5 % THb (90.0-100.0); PCO2 ABG 41.2 mmHg (35.0-45.0); PO2 ABG 88.9 mmHg (80.0-100.0); PO2 FiO2 Ratio Arterial Blood 2.22 %; Reduced Hemoglobin 3.9 %THb (0-5.0); Total Hemoglobin 15.3 g/dL (12.0-18.0); pH ABG 7.371 (7.350-7.450)
[2023-11-05 07:26] LABS: Modified Allen's Test Pass; Site Drawn LEFT RADIAL
[2023-11-05 07:27] LABS: Device VENTILATOR
[2023-11-05 07:28] LABS: Arterial Blood Gas PEEP 8 cmH2O; Arterial Blood Gas Vent Mode ASSIST CONTROL; Arterial Blood Gas Ventilator rate 18 /MIN
[2023-11-05 07:29] LABS: Arterial Blood Gas Tidal Volume 400 ml
[2023-11-05] MEDS: MINERAL OIL/WHITE PETROLATUM OINTMENT 1 APPLIC EACH EYE ×2 (08:08→20:08)
[2023-11-05] MEDS: ASPIRIN 81 MG CHEWABLE TABLET PO (08:09)
[2023-11-05] MEDS: TICAGRELOR 90 MG TABLET PO ×2 (08:09→20:08)
[2023-11-05] MEDS: ENOXAPARIN 40 MG/0.4 ML SYRINGE SUB-Q (08:09)
[2023-11-05] MEDS: PANTOPRAZOLE SODIUM IV 40 MG VIAL IV PUSH (08:10)
[2023-11-05] MEDS: levETIRAcetam 500MG/NACL 100ML 500 MG/100 ML BAG 400 MG IVPB ×2 (08:10→20:08)
[2023-11-05] MEDS: TOLNAFTATE 1% POWDER 45 GM BTL 1 APPLIC TOPICAL ×2 (08:10→20:08)
[2023-11-05] MEDS: CEFEPIME 2 GM/NS 50 ML 2 GM/50 ML BAG IVPB ×2 (08:10→20:08)
[2023-11-05 08:34] LABS: Glucose Point of Care 175 mg/dl (65-105)
--- NOTE | 2023-11-05 08:35 | PC.NURSE ---
Family and Dr. Vickers at bedside. MD discussed plan of care with family. RN updated family on plan of care for the shift.
--- NOTE | 2023-11-05 08:46 | WPDINTPN ---
Progress Note: A&P Assessment and Plan (1) Cardiac arrest: Code(s): I46.9 - Cardiac arrest, cause unspecified Status: Acute Assessment and Plan: Cardiac arrest secondary to STEMI Patient now status post PCI and stent placement in RCA Continue management with dual antiplatelet therapy Hold statin due to elevated liver enzymes Hold beta-autumn or LAUREN-inhibitor due to shock and renal failure Echo Summary 1. Left ventricular chamber dimension is normal. 2. Left ventricular systolic function is normal, estimated at 65-70%. 3. There is mildly increased left ventricular wall thickness. 4. The left ventricular diastolic function is grade I diastolic dysfunction. 5. Right ventricular chamber dimension is mildly enlarged. 6. Left atrial chamber dimension is mildly enlarged. 7. There is mild mitral valve regurgitation. 8. There is mild tricuspid valve regurgitation. (2) LENIN (acute kidney injury): Code(s): N17.9 - Acute kidney failure, unspecified Status: Acute Assessment and Plan: Multifactorial acute renal failure likely secondary to cardiac arrest shock and respiratory failure Patient overall volume overloaded and will hold further IV fluids Monitor urine output electrolytes and creatinine Creatinine improved 1.3 Nephrology following Off IV fluid with bicarb as metabolic acidosis improved (3) Rhabdomyolysis: Code(s): M62.82 - Rhabdomyolysis Status: Acute Assessment and Plan: Could be secondary to hypothermia protocol Patient currently on Nimbex infusion to minimize shivering Monitor CK level which is improving Now off of IV fluids (4) ST elevation (STEMI) myocardial infarction: Qualifiers: Involved coronary artery: unspecified coronary artery Qualified Code(s): I21.3 - ST elevation (STEMI) myocardial infarction of unspecified site Code(s): I21.3 - ST elevation (STEMI) myocardial infarction of unspecified site Status: Acute Assessment and Plan: See above (5) Insulin dependent diabetes mellitus: Status: Acute Assessment and Plan: Uncontrolled diabetes mellitus with hyperglycemia Continue Lantus and sliding scale insulin (6) Acute respiratory failure with hypoxia: Code(s): J96.01 - Acute respiratory failure with hypoxia Status: Acute Assessment and Plan: Patient has history of chronic respiratory failure secondary to obesity hypoventilation and obstructive sleep apnea Patient is a chronic CO2 retainer Patient now intubated and sedated due to cardiac arrest chest x-ray shows pulmonary possible pneumonia which could be aspiration She also has a small right pleural effusion Chest x-ray reviewed and endotracheal tube is in acceptable position ABG reviewed and continue CMV at tidal volume to 400 and rate to 18. Decrease PEEP to 8 Bronchodilators ordered Treatment of pneumonia as below (7) Encephalopathy: Code(s): G93.40 - Encephalopathy, unspecified Status: Acute Assessment and Plan: Multifactorial encephalopathy as patient is sedated but patient does appear to anoxic brain injury Off sedation since morning of 11/03 CT on presentation was negative Examination as above She has completed TTM protocol and has been remark Continue Keppra Consult neurology Check EEG Continue to hold sedatives (8) Anoxic brain injury: Code(s): G93.1 - Anoxic brain damage, not elsewhere classified Status: Acute Assessment and Plan: See above (9) Shock: Code(s): R57.9 - Shock, unspecified Status: Acute Assessment and Plan: Make shock likely secondary to STEMI cardiac arrest sedation and possibly sepsis from aspiration pneumonia Currently off of Levophed Off of IV fluids (10) Sepsis: Code(s): A41.9 - Sepsis, unspecified organism Status: Acute Assessment and Plan: UA shows WBC but negative leukoesterase, blood cultures ordered and pending She
--- NOTE | 2023-11-05 08:47 | PM.PNCARD ---
Progress Note: A&P Assessment and Plan (1) ST elevation (STEMI) myocardial infarction: Qualifiers: Involved coronary artery: unspecified coronary artery Qualified Code(s): I21.3 - ST elevation (STEMI) myocardial infarction of unspecified site Code(s): I21.3 - ST elevation (STEMI) myocardial infarction of unspecified site Status: Acute (2) ST elevation (STEMI) myocardial infarction involving right coronary artery: Code(s): I21.11 - ST elevation (STEMI) myocardial infarction involving right coronary artery Status: Acute (3) Cardiac arrest: Code(s): I46.9 - Cardiac arrest, cause unspecified Status: Acute Plan 78-year-old lady with history of diabetes and obesity presenting with [id number] cardiac arrest because of inferior wall ST-elevation MD. following resuscitation patient underwent successful PCI of the occluded right coronary artery with a good angiographic result. Her left ventricular function overall looks quite favorable and hemodynamics are stable. Obviously the current issue is her neurological function and evidence of obvious anoxic encephalopathy pain. Prognosis for meaningful recovery is poor Jose Raul Vickers MD [facility] Subjective Date/time seen: Date of service: 11/05/23 08:47 Interval history: Reason for visit: STEMI, cardiac arrest HPI: This is a 78-year-old woman who I was called to bring to the laboratory animal caretaker late this evening because of cardiac arrest following resuscitation she appears to have inferior ST-elevation MD. There is no previous cardiac history. The patient was found asystolic at her residence. She also had a ventricular tachycardia arrest in the ambulance on the way to the hospital and a ventricular fibrillation arrest in the emergency department. Patient has morbid obesity, hypoventilation, diabetes and dyslipidemia in her medical history. Obviously the patient is currently unresponsive and no direct history is obtainable. Date of service 11/02: Remains intubated, on pressors. In sinus rhythm, not requiring temporary pacer. Date of service 11/03: Sedation stopped this morning. Rewarming phase started this morning at 7:30. Remains in sinus rhythm with no issues with bradycardia or other arrhythmias. Date of service 11/05/2023: Patient remains intubated on full ventilator support in the ICU. Off sedation since yesterday now we warmed. She is obtunded Exam Const: Other: Intubated obese elderly lady unresponsive HENMT: Mouth: Yes moist mucous membranes Eyes: Sclera: sclerae normal Neck: Neck: supple Resp: Other: Breath sounds essentially clear Cardio: Rate: regular rate Rhythm: regular rhythm GI: GI Palp: Yes Soft to palpation Urinary Catheter: Urinary Catheter: patent and draining Skin: General skin exam: normal color Neuro: Other: Unresponsive Extrem: Other: Normal perfusion, no edema Objective Data Vital Signs Vital Signs: Vital Signs - 24 hr 11/04/23 09:05 11/04/23 09:05 11/04/23 09:08 Temperature Pulse Rate 67 67 68 Respiratory Rate 24 H 24 H Blood Pressure Pulse Oximetry 97 Oxygen Delivery Mechanical Ventilation Fraction of Inspired Oxygen 30 11/04/23 09:00 11/04/23 10:57 11/04/23 10:00 Temperature 34.9 C L 35.3 C L Pulse Rate 67 82 76 Respiratory Rate 24 H 18 Blood Pressure 93/52 L 105/57 L Pulse Oximetry 97 94 94 Oxygen Delivery Mechanical Ventilation Fraction of Inspired Oxygen 30 11/04/23 10:00 11/04/23 11:00 11/04/23 12:00 Temperature 36.1 C L 36.8 C Pulse Rate 76 82 87 Respiratory Rate 18 18 Blood Pressure 106/57 L 105/55 L Pulse Oximetry 94 91 Oxygen Delivery Fraction of Inspired Oxygen 11/04/23 12:00 11/04/23 12:00 11/04/23 13:00 Temperature 37.2 C Pulse Rate 88 91 Respiratory Rate 20 Blood Pressure 108/55 L Pulse Oximetry 90 Oxygen Delivery Fraction of Inspired Oxygen 30 11/04/23 13:39 11/03
--- NOTE | 2023-11-05 09:37 | PM.PNNEP ---
Progress Note: A&P Assessment and Plan (1) LENIN (acute kidney injury): Code(s): N17.9 - Acute kidney failure, unspecified Status: Acute Assessment and Plan: as noted on admission improvement noted/if not back to baseline suspect ATN with multifactorial etiology: hemodynamic instability/shock cardiac arrest acute respiratory failure possible prerenal factors diuretic use prior to admission contrast use (although creatinine was already elevated prior to exposure) element of rhabdomyolysis (elevated CPK) evaluation to date: CPK trending down urine electrolytes prerenal urine eosinophils negative mild proteinuria not opposed to IV diuretics if needed follow repeat labs and UOP (2) Chronic kidney disease, stage 3: Code(s): N18.30 - Chronic kidney disease, stage 3 unspecified Status: Chronic Assessment and Plan: baseline creatinine runs ~ 1.1 - 1.3mg/dl hence, she fluctuates between CKD stage 3A and stage 3B presumably secondary to cardiac/vascular disease, HTN, diabetes, ALMA/OSH, obesity, and age-related change (3) Cardiac arrest: Code(s): I46.9 - Cardiac arrest, cause unspecified Status: Acute Assessment and Plan: presumably secondary to STEMI s/p cardiac cath with PCI/stent placement on DAPT BB/LAUREN-I/statin on hold given hemodynamics and elevated CPK Echo results noted Cardiology following (4) Acute respiratory failure with hypoxia: Code(s): J96.01 - Acute respiratory failure with hypoxia Status: Acute Assessment and Plan: secondary to cardiac arrest complicated by known history of chronic respiratory failure from OHS + ALMA possible component of pneumonia (aspiration?) on antibiotics on ventilator support continue supportive therapy (5) ST elevation (STEMI) myocardial infarction: Qualifiers: Involved coronary artery: unspecified coronary artery Qualified Code(s): I21.3 - ST elevation (STEMI) myocardial infarction of unspecified site Code(s): I21.3 - ST elevation (STEMI) myocardial infarction of unspecified site Status: Acute Assessment and Plan: see #3 (6) Shock: Code(s): R57.9 - Shock, unspecified Status: Acute Assessment and Plan: resolving/resolved due to secondary to STEMI/cardiac arrest component of sepsis from aspiration pneumonia(?) off vasopressor support follow culture data - negative to date however, + fevers noted on antibiotics (7) Insulin dependent diabetes mellitus: Status: Acute Assessment and Plan: follow accu-cheks glycemic control per rock climbing instructor/hospitalists Will continue to follow. Subjective Date/time seen: 11/05/23 09:37 Interval history: Follow-up for acute kidney injury/acute renal failure on chronic kidney disease. Remains intubated and on mechanical ventilation at the time of my visit; remains hemodynamically stable off vasopressor therapy; despite being off sedation since yesterday, mental status/mentation has not significantly improved; febrile overnight/early this morning; renal function/creatinine stable with reasonable urine output. Exam Narrative: General: elderly female intubated and on mechanical ventilation Heart: normal S1 and S2; no rub Lungs: coarse breath sounds Abdomen: soft, nontender, nondistended, hypoactive bowel sounds Extremities: no cyanosis or clubbing; no edema Skin: warm and intact Objective Data Vital Signs Vital Signs: Vital Signs Temp Pulse Resp BP Pulse Ox O2 Del Method FiO2 11/05/23 08:00 95 Mechanical Ventilation 30 11/05/23 08:00 92 11/05/23 08:00 99.8 F H 89 21 H 126/54 L 95 11/05/23 08:00 30 11/05/23 07:42 89 94 Mechanical Ventilation 30 11/05/23 05:00 101.6 F H 97 29 H 159/58 H 96 11/05/23 03:00 101.2 F H 96 25 H 151/59 H 96 11/05/23 01:00 100.8 F H 9
--- NOTE | 2023-11-05 09:37 | P.PNNP_ITS ---
Progress Note: A&P Assessment and Plan (1) LENIN (acute kidney injury): Code(s): N17.9 - Acute kidney failure, unspecified Status: Acute Assessment and Plan: * as noted on admission * improvement noted/if not back to baseline * suspect ATN with multifactorial etiology: * hemodynamic instability/shock * cardiac arrest * acute respiratory failure * possible prerenal factors * diuretic use prior to admission * contrast use (although creatinine was already elevated prior to exposure) * element of rhabdomyolysis (elevated CPK) * evaluation to date: * CPK trending down * urine electrolytes prerenal * urine eosinophils negative * mild proteinuria * not opposed to IV diuretics if needed * follow repeat labs and UOP (2) Chronic kidney disease, stage 3: Code(s): N18.30 - Chronic kidney disease, stage 3 unspecified Status: Chronic Assessment and Plan: * baseline creatinine runs ~ 1.1 - 1.3mg/dl * hence, she fluctuates between CKD stage 3A and stage 3B * presumably secondary to cardiac/vascular disease, HTN, diabetes, ALMA/OSH, obesity, and age-related change (3) Cardiac arrest: Code(s): I46.9 - Cardiac arrest, cause unspecified Status: Acute Assessment and Plan: * presumably secondary to STEMI * s/p cardiac cath with PCI/stent placement * on DAPT * BB/LAUREN-I/statin on hold given hemodynamics and elevated CPK * Echo results noted * Cardiology following (4) Acute respiratory failure with hypoxia: Code(s): J96.01 - Acute respiratory failure with hypoxia Status: Acute Assessment and Plan: * secondary to cardiac arrest * complicated by known history of chronic respiratory failure from OHS + ALMA * possible component of pneumonia (aspiration?) * on antibiotics * on ventilator support * continue supportive therapy (5) ST elevation (STEMI) myocardial infarction: Qualifiers: Involved coronary artery: unspecified coronary artery Qualified Code(s): I21.3 - ST elevation (STEMI) myocardial infarction of unspecified site Code(s): I21.3 - ST elevation (STEMI) myocardial infarction of unspecified site Status: Acute Assessment and Plan: * see #3 (6) Shock: Code(s): R57.9 - Shock, unspecified Status: Acute Assessment and Plan: * resolving/resolved * due to secondary to STEMI/cardiac arrest * component of sepsis from aspiration pneumonia(?) * off vasopressor support * follow culture data - negative to date * however, + fevers noted * on antibiotics (7) Insulin dependent diabetes mellitus: Status: Acute Assessment and Plan: * follow accu-cheks * glycemic control per machine operator helper/hospitalists Will continue to follow. Subjective Date/time seen: 11/05/23 09:37 Interval history: Follow-up for acute kidney injury/acute renal failure on chronic kidney disease. Remains intubated and on mechanical ventilation at the time of my visit; remains hemodynamically stable off vasopressor therapy; despite being off sedation since yesterday, mental status/mentation has not significantly improved; febrile overnight/early this morning; renal function/creatinine stable with reasonable urine output. Exam Narrative: General: elderly female intubated and on mechanical ventilation Heart: normal S1 and S2; no rub Lungs: coarse breath sounds Abdomen: soft, nontender, nondistended, hypoactive bowel sounds Extremities: no cy
--- NOTE | 2023-11-05 10:09 | PC.NURSE ---
Tube feeding held for EEG and Ultrasound of the Abdomen.
--- NOTE | 2023-11-05 10:35 | PC.NURSE ---
EEG completed. Patient agitated. Patient suctioned, oral care completed, scan bleeding noted to mouth. Gauze placed in mouth. Patient resting quietly now.
--- NOTE | 2023-11-05 11:14 | PCNFU ---
Nutrition Follow-Up Complete: Suboptimal nutrition as related to mechanical vent as evidenced NPO Goal: Meet estimated nutritional needs. patient has limited progress towards goal. We will continue current goal. Pt current nutrition is Sindi AF 1.2 at 30 ml/hr. Nutrition recommendation: goal rate at 55 ml/hr. Last recorded weight is 93.8 kg, up from 94.2kg on admit. Bowel Motility: FMS Labs Reviewed:Glu 160,Cr 1.3,BUN 37,GFR 40, Hct 31.8, Hgb 9.3 Meds Noted: Keppra, Lantus, NovoLog, Cefepime, Flagyl Skin: WNL Additional Notes: Patient remain on mechanical vent. Sedation is off. Tube feedings on hold at this time. Plans for US of Abdomen. EEG performed today. Monitor in ICU rounds and reassessing weight, labs, skin, diet orders, meds every Wednesday and Wednesday.
[2023-11-05 11:38] LABS: Glucose Point of Care 172 mg/dl (65-105)
[2023-11-05 12:06] LABS: Glucose Point of Care 199 mg/dl (65-105)
[2023-11-05 14:53] LABS: Hepatitis B Surface Antigen Negative (Negative)
[2023-11-05 14:58] LABS: HAV RESULT Negative (Negative); Hepatitis B Core IgM Result Negative (Negative)
[2023-11-05 15:10] LABS: Hepatitis C Virus Antibody Negative (Negative)
[2023-11-05 16:00] LABS: Glucose Point of Care 206 mg/dl (65-105)
[2023-11-05] MEDS: INSULIN ASPART (*BKC) 100 UNITS/ML SUB-Q ×2 (16:56→20:07)
--- NOTE | 2023-11-05 18:10 | PM.IMPN ---
Subjective Date/time seen: 11/05/23 18:10 Interval history: Patient seen while intubated. Objective Data Vital Signs Vital Signs: Vital Signs - 24 hr 11/04/23 19:00 11/04/23 20:00 11/04/23 20:00 Temperature 100.3 F H 100.2 F H Pulse Rate 88 88 Respiratory Rate 22 H 22 H Blood Pressure 106/52 L 116/53 L Pulse Oximetry 97 97 Oxygen Delivery Fraction of Inspired Oxygen 40 11/04/23 20:00 11/04/23 20:00 11/04/23 22:00 Temperature Pulse Rate 88 92 Respiratory Rate Blood Pressure Pulse Oximetry 95 Oxygen Delivery Mechanical Ventilation Fraction of Inspired Oxygen 40 11/04/23 22:00 11/05/23 00:00 11/05/23 00:00 Temperature 100.2 F H 100.5 F H Pulse Rate 92 93 Respiratory Rate 24 H 25 H Blood Pressure 121/58 L 130/53 L Pulse Oximetry 95 95 Oxygen Delivery Fraction of Inspired Oxygen 40 11/05/23 00:00 11/05/23 00:00 11/04/23 20:10 Temperature Pulse Rate 94 88 Respiratory Rate Blood Pressure Pulse Oximetry 95 97 Oxygen Delivery Mechanical Ventilation Mechanical Ventilation Fraction of Inspired Oxygen 40 40 11/04/23 23:00 11/05/23 02:30 11/05/23 05:02 Temperature 101.6 F H Pulse Rate 94 96 Respiratory Rate Blood Pressure Pulse Oximetry 95 96 Oxygen Delivery Mechanical Ventilation Mechanical Ventilation Fraction of Inspired Oxygen 40 40 11/05/23 05:09 11/05/23 04:00 11/05/23 04:00 Temperature Pulse Rate 99 Respiratory Rate Blood Pressure 159/85 H Pulse Oximetry 97 Oxygen Delivery Mechanical Ventilation Fraction of Inspired Oxygen 40 40 11/05/23 05:50 11/05/23 02:00 11/05/23 02:00 Temperature 101.0 F H Pulse Rate 101 H 95 95 Respiratory Rate 25 H Blood Pressure 147/56 H Pulse Oximetry 96 96 Oxygen Delivery Mechanical Ventilation Fraction of Inspired Oxygen 40 11/05/23 04:00 11/05/23 04:00 11/05/23 06:00 Temperature 101.4 F H Pulse Rate 97 97 94 Respiratory Rate 28 H Blood Pressure 157/55 H Pulse Oximetry 96 Oxygen Delivery Fraction of Inspired Oxygen 11/05/23 06:00 11/05/23 06:02 11/04/23 21:00 Temperature 100.8 F H 100.8 F H 100.2 F H Pulse Rate 94 91 Respiratory Rate 18 23 H Blood Pressure 123/52 L 121/60 Pulse Oximetry 97 96 Oxygen Delivery Fraction of Inspired Oxygen 11/04/23 23:00 11/05/23 01:00 11/05/23 03:00 Temperature 100.3 F H 100.8 F H 101.2 F H Pulse Rate 93 94 96 Respiratory Rate 23 H 24 H 25 H Blood Pressure 128/56 L 140/55 L 151/59 H Pulse Oximetry 95 95 96 Oxygen Delivery Fraction of Inspired Oxygen 11/05/23 05:00 11/05/23 07:42 11/05/23 08:00 Temperature 101.6 F H Pulse Rate 97 89 Respiratory Rate 29 H Blood Pressure 159/58 H Pulse Oximetry 96 94 Oxygen Delivery Mechanical Ventilation Fraction of Inspired Oxygen 30 30 11/05/23 08:00 11/05/23 08:00 11/05/23 08:00 Temperature 99.8 F H Pulse Rate 89 92 Respiratory Rate 21 H Blood Pressure 126/54 L Pulse Oximetry 95 95 Oxygen Delivery Mechanical Ventilation Fraction of Inspired Oxygen 30 11/05/23 10:00 11/05/23 10:00 11/05/23 12:00 Temperature 99.2 F 98.9 F Pulse Rate 88 88 90 Respiratory Rate 23 H 18 Blood Pressure 135/53 L 148/57 H Pulse Oximetry 96 94 Oxygen Delivery Fraction of Inspired Oxygen 11/05/23 12:00 11/05/23 12:00 11/05/23 12:00 Temperature Pulse Rate 90 Respiratory Rate Blood Pressure Pulse Oximetry 95 Oxygen Delivery Mechanical Ventilation Fraction of Inspired Oxygen 30 30 11/05/23 12:25 11/05/23 14:00 11/05/23 14:00 Temperature 99.0 F Pulse Rate 91 93 93 Respiratory Rate 20 Blood Pressure 152/61 H Pulse Oximetry 94 96 Oxygen Delivery Mechanical Ventilation Fraction of Inspired Oxygen 30 11/05/23 14:59 11/05/23 16:00 11/05/23 16:00 Temperature 99.0 F Pulse Rate 92 94 95 Respiratory Rate 25 H Blood Pressure 141/55 H Pulse Oximetry 95 95
[2023-11-05 19:46] LABS: Glucose Point of Care 246 mg/dl (65-105)
[2023-11-06] VITALS (36 sets, daily range): BP systolic 138–193; BP diastolic 54–78; PULSE 79–96; RESP 16–21; TEMP 37.3–38.3; O2SAT 93–100
[2023-11-06 00:05] LABS: Glucose Point of Care 245 mg/dl (65-105)
[2023-11-06] MEDS: INSULIN ASPART (*BKC) 100 UNITS/ML SUB-Q ×4 (00:45→12:37)
[2023-11-06 03:58] LABS: Glucose Point of Care 266 mg/dl (65-105)
[2023-11-06] MEDS: LABETALOL HCL INJ 100 MG/20 ML VIAL 20 MG IV PUSH ×3 (05:16→20:35)
[2023-11-06] MEDS: metroNIDAZOLE 500 MG/ISO 100ML 500 MG/100 ML BAG 100 MG IVPB ×3 (05:16→21:47)
[2023-11-06] MEDS: CENTRAL LINE FLUSH 10 ML IV PUSH ×3 (05:17→21:50)
[2023-11-06 05:43] LABS: Hematocrit 33.7 % (37.0-47.0); Hemoglobin 9.5 g/dL (12.0-15.0); Mean Corpuscular HGB Conc 28.2 g/dl (32-36); Mean Corpuscular Hemoglobin 26.8 pg (26-34); Mean Corpuscular Volume 94.9 fl (80-100); Mean Platelet Volume 9.7 fl (7.4-10.4); Platelet Count Result 365 k/mm3 (150-375); Red Blood Count 3.55 M/mm3 (4.2-5.4); Red Cell Distribution Width 20.5 % (11.5-14.5); White Blood Count 12.3 K/mm3 (4.5-10.0)
[2023-11-06 05:43] LABS: Alveolar/Arterial O2 Gradient 96.8 mmHg; Base Excess ABG -0.9 mEq/l (+/-2.0); Carboxyhemoglobin 0.8 % THb (0-2.0); Methemoglobin ABG 0.1 %THb (0-1.5); Oxygen Saturation ABG 95.6 % (95.0-100.0); Oxyhemoglobin 93.4 % THb (90.0-100.0); PCO2 ABG 35.3 mmHg (35.0-45.0); PO2 ABG 75.6 mmHg (80.0-100.0); PO2 FiO2 Ratio Arterial Blood 2.52 %; Reduced Hemoglobin 5.7 %THb (0-5.0); Total Hemoglobin 11.4 g/dL (12.0-18.0); pH ABG 7.431 (7.350-7.450)
[2023-11-06 05:44] LABS: Fractional Inspired Oxygen 30 %
[2023-11-06 05:46] LABS: Device VENTILATOR; Modified Allen's Test Unable to perform; Site Drawn RIGHT RADIAL
[2023-11-06 05:48] LABS: Arterial Blood Gas PEEP 8 cmH2O; Arterial Blood Gas Tidal Volume 400 ml; Arterial Blood Gas Vent Mode CMV; Arterial Blood Gas Ventilator rate 18 /MIN
[2023-11-06 05:55] LABS: Alanine Aminotransferase 275 U/L (6-35); Albumin Level 3.4 g/dL (3.5-5.1); Alkaline Phosphatase 96 U/L (38-126); Anion Gap 9 mmol/L (4-12); Aspartate Amino Transferase 258 U/L (14-36); Bilirubin,Total 0.6 mg/dL (0.2-1.3); Blood Urea Nitrogen 29 mg/dL (7-17); Calcium 8.6 mg/dL (8.4-10.2); Carbon Dioxide 26 mmol/L (22-30); Chloride 113 mmol/L (98-107); Creatine Kinase 197 U/L (30-135); Estimated CRCL calculation 44 ml/min; Estimated Glomerular Filt Rate 54; Glucose 281 mg/dL (65-110); Magnesium 2.2 mg/dL (1.6-2.3); Potassium 3.8 mmol/L (3.4-5.0); Sodium 148 mmol/L (137-145)
--- NOTE | 2023-11-06 08:17 | WPDINTPN ---
Progress Note: A&P Assessment and Plan (1) Cardiac arrest: Code(s): I46.9 - Cardiac arrest, cause unspecified Status: Acute Assessment and Plan: Cardiac arrest secondary to STEMI Patient now status post PCI and stent placement in RCA Continue management with dual antiplatelet therapy Hold statin due to elevated liver enzymes Hold beta-autumn or LAUREN-inhibitor due to shock and renal failure Echo Summary 1. Left ventricular chamber dimension is normal. 2. Left ventricular systolic function is normal, estimated at 65-70%. 3. There is mildly increased left ventricular wall thickness. 4. The left ventricular diastolic function is grade I diastolic dysfunction. 5. Right ventricular chamber dimension is mildly enlarged. 6. Left atrial chamber dimension is mildly enlarged. 7. There is mild mitral valve regurgitation. 8. There is mild tricuspid valve regurgitation. (2) LENIN (acute kidney injury): Code(s): N17.9 - Acute kidney failure, unspecified Status: Acute Assessment and Plan: Multifactorial acute renal failure likely secondary to cardiac arrest shock and respiratory failure Patient overall volume overloaded and will hold further IV fluids Monitor urine output electrolytes and creatinine Creatinine improved to 1.0 Nephrology following Off IV fluid with bicarb as metabolic acidosis improved (3) Rhabdomyolysis: Code(s): M62.82 - Rhabdomyolysis Status: Acute Assessment and Plan: Could be secondary to hypothermia protocol Patient currently on Nimbex infusion to minimize shivering Monitor CK level which is improving Now off of IV fluids (4) ST elevation (STEMI) myocardial infarction: Qualifiers: Involved coronary artery: unspecified coronary artery Qualified Code(s): I21.3 - ST elevation (STEMI) myocardial infarction of unspecified site Code(s): I21.3 - ST elevation (STEMI) myocardial infarction of unspecified site Status: Acute Assessment and Plan: See above (5) Insulin dependent diabetes mellitus: Status: Acute Assessment and Plan: Uncontrolled diabetes mellitus with hyperglycemia Continue Lantus and sliding scale insulin (6) Acute respiratory failure with hypoxia: Code(s): J96.01 - Acute respiratory failure with hypoxia Status: Acute Assessment and Plan: Patient has history of chronic respiratory failure secondary to obesity hypoventilation and obstructive sleep apnea Patient is a chronic CO2 retainer Patient now intubated and sedated due to cardiac arrest chest x-ray shows pulmonary possible pneumonia which could be aspiration She also has a small right pleural effusion Chest x-ray reviewed and endotracheal tube is in acceptable position ABG reviewed and continue CMV at tidal volume to 400 and rate to 18. Decrease PEEP to 8 Bronchodilators ordered Treatment of pneumonia as below (7) Encephalopathy: Code(s): G93.40 - Encephalopathy, unspecified Status: Acute Assessment and Plan: Multifactorial encephalopathy as patient is sedated but patient does appear to anoxic brain injury Off sedation since morning of 11/03 and there has been no significant change in neurological exam CT on presentation was negative and will be repeated Examination as above She has completed TTM protocol and has been reformed Continue [facility] Neurology consulted but no neurology service this weekend EEG done and report pain Continue to hold sedatives (8) Anoxic brain injury: Code(s): G93.1 - Anoxic brain damage, not elsewhere classified Status: Acute Assessment and Plan: See above (9) Shock: Code(s): R57.9 - Shock, unspecified Status: Acute Assessment and Plan: Make shock likely secondary to STEMI cardiac arrest sedation and possibly sepsis from aspiration pneumonia Currently off of Levophed Off of IV fluids (10) Sepsis: Code(s): A41.9 - Sepsis, unspecified
[2023-11-06] MEDS: TICAGRELOR 90 MG TABLET PO ×2 (09:08→21:49)
[2023-11-06] MEDS: PANTOPRAZOLE SODIUM IV 40 MG VIAL IV PUSH (09:08)
[2023-11-06] MEDS: levETIRAcetam 500MG/NACL 100ML 500 MG/100 ML BAG 400 MG IVPB ×2 (09:08→21:48)
[2023-11-06] MEDS: ASPIRIN 81 MG CHEWABLE TABLET PO (09:08)
[2023-11-06] MEDS: ENOXAPARIN 40 MG/0.4 ML SYRINGE SUB-Q (09:09)
[2023-11-06] MEDS: INSULIN GLARGINE (*BKC) 100 UNITS/ML 30 UNITS SUB-Q (09:09)
[2023-11-06 09:10] LABS: Glucose Point of Care 288 mg/dl (65-105)
[2023-11-06] MEDS: MINERAL OIL/WHITE PETROLATUM OINTMENT 1 APPLIC EACH EYE ×2 (09:17→21:49)
--- NOTE | 2023-11-06 09:20 | PM.PNCARD ---
Progress Note: A&P Assessment and Plan (1) ST elevation (STEMI) myocardial infarction: Qualifiers: Involved coronary artery: unspecified coronary artery Qualified Code(s): I21.3 - ST elevation (STEMI) myocardial infarction of unspecified site Code(s): I21.3 - ST elevation (STEMI) myocardial infarction of unspecified site Status: Acute (2) Cardiac arrest: Code(s): I46.9 - Cardiac arrest, cause unspecified Status: Acute Plan 78-year-old lady with coronary disease presenting with cardiac arrest and acute inferior wall infarction earlier in the week. She remains hemodynamically stable and having no arrhythmias. Unfortunately her neurologic status is obviously poor and as such her prognosis for meaningful recovery seems nil. Electroencephalogram was done yesterday formal report is pending neurology review. Patient's son is in the room asking appropriate questions regarding ongoing aggressive support. 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 There is no previous cardiac history. The patient was found asystolic at her residence. She also had a ventricular tachycardia arrest in the ambulance on the way to the hospital and a ventricular fibrillation arrest in the emergency department. Patient has morbid obesity, hypoventilation, diabetes and dyslipidemia in her medical history. Obviously the patient is currently unresponsive and no direct history is obtainable. Date of service 11/02: Remains intubated, on pressors. In sinus rhythm, not requiring temporary pacer. Date of service 11/03: Sedation stopped this morning. Rewarming phase started this morning at 7:30. Remains in sinus rhythm with no issues with bradycardia or other arrhythmias. Date of service 11/05/2023: Patient remains intubated on full ventilator support in the ICU. Off sedation since yesterday now we warmed. She is obtunded Date of service 11/06/2023: Clinically unchanged remains on full ventilator support and unresponsive. Exam Const: Other: Intubated obese elderly lady unresponsive HENMT: Mouth: Yes moist mucous membranes Other: OETT in place Eyes: Sclera: sclerae normal Neck: Neck: supple Resp: Other: Breath sounds essentially clear Cardio: Rate: regular rate Rhythm: regular rhythm Other: exam very difficult no obvious murmur or gallop GI: Other: very large protruding obese abdomen Urinary Catheter: Urinary Catheter: patent and draining Skin: General skin exam: normal color Neuro: Other: Unresponsive Extrem: Other: Normal perfusion, no edema Objective Data Vital Signs Vital Signs: Vital Signs - 24 hr 11/05/23 10:00 11/05/23 10:00 11/05/23 12:00 Temperature 37.3 C 37.2 C Pulse Rate 88 88 90 Respiratory Rate 23 H 18 Blood Pressure 135/53 L 148/57 H Pulse Oximetry 96 94 Oxygen Delivery Fraction of Inspired Oxygen 11/05/23 12:00 11/05/23 12:00 11/05/23 12:00 Temperature Pulse Rate 90 Respiratory Rate Blood Pressure Pulse Oximetry 95 Oxygen Delivery Mechanical Ventilation Fraction of Inspired Oxygen 30 30 11/05/23 12:25 11/05/23 14:00 11/05/23 14:00 Temperature 37.2 C Pulse Rate 91 93 93 Respiratory Rate 20 Blood Pressure 152/61 H Pulse Oximetry 94 96 Oxygen Delivery Mechanical Ventilation Fraction of Inspired Oxygen 30 11/05/23 14:59 11/05/23 16:00 11/05/23 16:00 Temperature 37.2 C Pulse Rate 92 94 95 Respiratory Rate 25 H Blood Pressure 141/55 H Pulse Oximetry 95 95 Oxygen Delivery Mechanical Ventilation Fraction of Inspired Oxygen 30 11/05/23 16:00 11/05/23 16:00 11/05/23
[2023-11-06] MEDS: CEFEPIME 2 GM/NS 50 ML 2 GM/50 ML BAG IVPB ×2 (09:49→21:48)
[2023-11-06] MEDS: TOLNAFTATE 1% POWDER 45 GM BTL 1 APPLIC TOPICAL ×2 (09:53→21:50)
--- NOTE | 2023-11-06 11:30 | PM.PNNEP ---
Progress Note: A&P Assessment and Plan (1) LENIN (acute kidney injury): Code(s): N17.9 - Acute kidney failure, unspecified Status: Acute Assessment and Plan: as noted on admission improvement noted/if not back to baseline suspect ATN with multifactorial etiology: hemodynamic instability/shock cardiac arrest acute respiratory failure possible prerenal factors diuretic use prior to admission contrast use (although creatinine was already elevated prior to exposure) element of rhabdomyolysis (elevated CPK) evaluation to date: CPK trending down urine electrolytes prerenal urine eosinophils negative mild proteinuria not opposed to IV diuretics if needed follow repeat labs and UOP (2) Chronic kidney disease, stage 3: Code(s): N18.30 - Chronic kidney disease, stage 3 unspecified Status: Chronic Assessment and Plan: baseline creatinine runs ~ 1.1 - 1.3mg/dl hence, she fluctuates between CKD stage 3A and stage 3B presumably secondary to cardiac/vascular disease, HTN, diabetes, ALMA/OSH, obesity, and age-related change (3) Cardiac arrest: Code(s): I46.9 - Cardiac arrest, cause unspecified Status: Acute Assessment and Plan: presumably secondary to STEMI s/p cardiac cath with PCI/stent placement on DAPT BB/LAUREN-I/statin were on hold -- slowly re-introduce as tolerated Echo results noted Cardiology following (4) Acute respiratory failure with hypoxia: Code(s): J96.01 - Acute respiratory failure with hypoxia Status: Acute Assessment and Plan: secondary to cardiac arrest complicated by known history of chronic respiratory failure from OHS + ALMA possible component of pneumonia (aspiration?) on antibiotics on ventilator support continue supportive therapy (5) ST elevation (STEMI) myocardial infarction: Qualifiers: Involved coronary artery: unspecified coronary artery Qualified Code(s): I21.3 - ST elevation (STEMI) myocardial infarction of unspecified site Code(s): I21.3 - ST elevation (STEMI) myocardial infarction of unspecified site Status: Acute Assessment and Plan: see #3 (6) Shock: Code(s): R57.9 - Shock, unspecified Status: Acute Assessment and Plan: resolving/resolved due to secondary to STEMI/cardiac arrest component of sepsis from aspiration pneumonia(?) off vasopressor support follow culture data - negative to date however, + fevers noted on antibiotics (7) Encephalopathy: Code(s): G93.40 - Encephalopathy, unspecified Status: Acute Assessment and Plan: concern for anoxic brain injury off sedation since morning of 11/03 with no change in neuro status/exam CT of head negative Neurology consulted follow-up on EEG report follow mentation (8) Insulin dependent diabetes mellitus: Status: Acute Assessment and Plan: follow accu-cheks glycemic control per certified breastfeeding educator/hospitalists Will continue to follow. Subjective Date/time seen: 11/06/23 11:30 Interval history: Follow-up for acute kidney injury/acute renal failure on chronic kidney disease. No real significant change since I last saw the patient; intubated and on remains on ventilator support; renal function/creatinine stable if not better by morning labs with good urine output; hemodynamically stable without the need for vasopressor therapy; off sedation but mental status/mentation has not improved; no other issues/events overnight or earlier this AM. Exam Narrative: General: elderly female intubated and on mechanical ventilation Heart: normal S1 and S2; no rub Lungs: coarse breath sounds Abdomen: soft, nontender, nondistended, + bowel sounds Extremities: no cyanosis or clubbing; no edema Skin: no rash Objective Data Vital Signs Vital Signs: Vital Signs Temp Pulse Resp BP Pulse Ox O2 Del Method FiO2 0
--- NOTE | 2023-11-06 11:30 | P.PNNP_ITS ---
Progress Note: A&P Assessment and Plan (1) LENIN (acute kidney injury): Code(s): N17.9 - Acute kidney failure, unspecified Status: Acute Assessment and Plan: * as noted on admission * improvement noted/if not back to baseline * suspect ATN with multifactorial etiology: * hemodynamic instability/shock * cardiac arrest * acute respiratory failure * possible prerenal factors * diuretic use prior to admission * contrast use (although creatinine was already elevated prior to exposure) * element of rhabdomyolysis (elevated CPK) * evaluation to date: * CPK trending down * urine electrolytes prerenal * urine eosinophils negative * mild proteinuria * not opposed to IV diuretics if needed * follow repeat labs and UOP (2) Chronic kidney disease, stage 3: Code(s): N18.30 - Chronic kidney disease, stage 3 unspecified Status: Chronic Assessment and Plan: * baseline creatinine runs ~ 1.1 - 1.3mg/dl * hence, she fluctuates between CKD stage 3A and stage 3B * presumably secondary to cardiac/vascular disease, HTN, diabetes, ALMA/OSH, obesity, and age-related change (3) Cardiac arrest: Code(s): I46.9 - Cardiac arrest, cause unspecified Status: Acute Assessment and Plan: * presumably secondary to STEMI * s/p cardiac cath with PCI/stent placement * on DAPT * BB/LAUREN-I/statin were on hold -- slowly re-introduce as tolerated * Echo results noted * Cardiology following (4) Acute respiratory failure with hypoxia: Code(s): J96.01 - Acute respiratory failure with hypoxia Status: Acute Assessment and Plan: * secondary to cardiac arrest * complicated by known history of chronic respiratory failure from OHS + ALMA * possible component of pneumonia (aspiration?) * on antibiotics * on ventilator support * continue supportive therapy (5) ST elevation (STEMI) myocardial infarction: Qualifiers: Involved coronary artery: unspecified coronary artery Qualified Code( s): I21.3 - ST elevation (STEMI) myocardial infarction of unspecified site Code(s): I21.3 - ST elevation (STEMI) myocardial infarction of unspecified site Status: Acute Assessment and Plan: * see #3 (6) Shock: Code(s): R57.9 - Shock, unspecified Status: Acute Assessment and Plan: * resolving/resolved * due to secondary to STEMI/cardiac arrest * component of sepsis from aspiration pneumonia(?) * off vasopressor support * follow culture data - negative to date * however, + fevers noted * on antibiotics (7) Encephalopathy: Code(s): G93.40 - Encephalopathy, unspecified Status: Acute Assessment and Plan: * concern for anoxic brain injury * off sedation since morning of 11/03 with no change in neuro status/exam * CT of head negative * Neurology consulted * follow-up on EEG report * follow mentation (8) Insulin dependent diabetes mellitus: Status: Acute Assessment and Plan: * follow accu-cheks * glycemic control per structures mechanic/hospitalists Will continue to follow. Subjective Date/time seen: 11/06/23 11:30 Interval history: Follow-up for acute kidney injury/acute renal failure on chronic kidney disease. No real significant change since I last saw the patient; intubated and on remains on ventilator support; renal function/creatinine stable if not better by morning labs with good urine output; hemodynamically stable without the need for vasopressor
--- NOTE | 2023-11-06 12:21 | PC.NURSE ---
Spoke with Octavio at [facility] due to patient on mechanical ventilator.
[2023-11-06 12:38] LABS: Glucose Point of Care 274 mg/dl (65-105)
--- NOTE | 2023-11-06 17:36 | PM.IMPN ---
Subjective Date/time seen: 11/06/23 17:36 Interval history: Patient currently intubated. Cam positive Objective Data Vital Signs Vital Signs: Vital Signs - 24 hr 11/05/23 18:00 11/05/23 18:00 11/05/23 19:56 Temperature 99.5 F 99.8 F H Pulse Rate 96 96 97 Respiratory Rate 20 20 Blood Pressure 144/56 H 141/58 H Pulse Oximetry 97 95 Oxygen Delivery Fraction of Inspired Oxygen 11/05/23 20:00 11/05/23 20:00 11/05/23 20:00 Temperature Pulse Rate 97 Respiratory Rate Blood Pressure Pulse Oximetry Oxygen Delivery Mechanical Ventilation Fraction of Inspired Oxygen 30 30 11/05/23 21:53 11/05/23 20:04 11/05/23 23:02 Temperature 99.5 F Pulse Rate 97 98 100 Respiratory Rate 20 Blood Pressure 135/54 L Pulse Oximetry 96 96 97 Oxygen Delivery Mechanical Ventilation Mechanical Ventilation Fraction of Inspired Oxygen 30 30 11/05/23 22:00 11/05/23 23:56 11/06/23 00:00 Temperature 99.6 F Pulse Rate 97 96 Respiratory Rate 20 Blood Pressure 135/52 L Pulse Oximetry 97 Oxygen Delivery Mechanical Ventilation Fraction of Inspired Oxygen 30 11/06/23 00:00 11/06/23 00:00 11/06/23 02:00 Temperature Pulse Rate 96 96 Respiratory Rate Blood Pressure Pulse Oximetry Oxygen Delivery Fraction of Inspired Oxygen 30 11/06/23 02:05 11/06/23 02:28 11/06/23 02:18 Temperature 99.5 F 99.4 F Pulse Rate 96 93 93 Respiratory Rate 21 H 18 Blood Pressure 172/65 H 163/63 H Pulse Oximetry 100 100 99 Oxygen Delivery Mechanical Ventilation Fraction of Inspired Oxygen 30 11/06/23 03:53 11/06/23 04:00 11/06/23 04:00 Temperature 99.1 F Pulse Rate 93 94 Respiratory Rate 20 Blood Pressure 163/60 H Pulse Oximetry 100 Oxygen Delivery Mechanical Ventilation Fraction of Inspired Oxygen 30 11/06/23 04:00 11/06/23 05:16 11/06/23 05:04 Temperature Pulse Rate 94 81 Respiratory Rate Blood Pressure Pulse Oximetry 96 Oxygen Delivery Mechanical Ventilation Fraction of Inspired Oxygen 30 30 11/06/23 06:05 11/06/23 06:00 11/06/23 04:18 Temperature 99.4 F 99.2 F Pulse Rate 81 81 95 Respiratory Rate 20 16 Blood Pressure 147/62 H 172/72 H Pulse Oximetry 93 97 Oxygen Delivery Fraction of Inspired Oxygen 11/06/23 04:51 11/06/23 05:01 11/06/23 05:31 Temperature 99.3 F 99.3 F 99.4 F Pulse Rate 95 94 79 Respiratory Rate 18 18 18 Blood Pressure 173/70 H 171/69 H 138/54 L Pulse Oximetry 97 97 96 Oxygen Delivery Fraction of Inspired Oxygen 11/06/23 06:31 11/06/23 08:15 11/06/23 08:00 Temperature 99.4 F Pulse Rate 83 88 88 Respiratory Rate 18 Blood Pressure 149/60 H Pulse Oximetry 96 96 Oxygen Delivery Mechanical Ventilation Fraction of Inspired Oxygen 30 11/06/23 10:00 11/06/23 08:00 11/06/23 11:45 Temperature Pulse Rate 92 93 Respiratory Rate Blood Pressure Pulse Oximetry 98 Oxygen Delivery Mechanical Ventilation Mechanical Ventilation Fraction of Inspired Oxygen 30 30 11/06/23 12:37 11/06/23 12:00 11/06/23 12:00 Temperature Pulse Rate 94 93 Respiratory Rate Blood Pressure Pulse Oximetry Oxygen Delivery Mechanical Ventilation Fraction of Inspired Oxygen 30 11/06/23 14:00 11/06/23 14:10 11/06/23 16:00 Temperature Pulse Rate 86 86 89 Respiratory Rate Blood Pressure Pulse Oximetry 99 Oxygen Delivery Mechanical Ventilation Fraction of Inspired Oxygen 30 11/06/23 16:00 11/06/23 17:20 Temperature Pulse Rate 90 Respiratory Rate Blood Pressure Pulse Oximetry 99 Oxygen Delivery Mechanical Ventilation Mechanical Ventilation Fraction of Inspired Oxygen 30 30 Intake/Output Intake/Output: Intake & Output 11/03/23 11/04/23 11/05/23 11/06/23 23:59 23:59 23:59 23:59 Intake Total 4384.2 1110.0 1345 858 Output Total 2296 1010 5175 5395 Balance 2088.2 898 -0792 -2811 Meds/Results Medicati
[2023-11-06 21:23] LABS: Glucose Point of Care 339 mg/dl (65-105)
[2023-11-06] MEDS: INSULIN GLARGINE (*BKC) 100 UNITS/ML 10 UNITS SUB-Q (21:48)
[2023-11-06] MEDS: hydrALAZINE HCL 20 MG/ML VIAL 10 MG IV PUSH (21:48)
[2023-11-06] MEDS: INSULIN ASPART (*BKC) 100 UNITS/ML 10 UNITS SUB-Q (21:49)
[2023-11-07] VITALS (23 sets, daily range): BP systolic 132–175; BP diastolic 45–68; PULSE 70–87; RESP 18; TEMP 36.9–38.1; O2SAT 95–99
[2023-11-07] MEDS: INSULIN ASPART (*BKC) 100 UNITS/ML SUB-Q ×6 (00:36→19:59)
[2023-11-07 00:47] LABS: Glucose Point of Care 344 mg/dl (65-105)
[2023-11-07 01:41] LABS: Glucose Point of Care 325 mg/dl (65-105)
[2023-11-07] MEDS: INSULIN ASPART (*BKC) 100 UNITS/ML 6 UNITS SUB-Q (01:54)
[2023-11-07] MEDS: LABETALOL HCL INJ 100 MG/20 ML VIAL 20 MG IV PUSH ×2 (04:13→09:15)
[2023-11-07 04:25] LABS: Glucose Point of Care 306 mg/dl (65-105)
[2023-11-07 05:02] LABS: Alveolar/Arterial O2 Gradient 93.7 mmHg; Base Excess ABG 1.6 mEq/l (+/-2.0); Fractional Inspired Oxygen 30 %; HCO3 ABG 24.6 mEq/l (22.0-26.0); Methemoglobin ABG 0.3 %THb (0-1.5); Oxygen Content ABG 14.9 %vol (16.0-22.0); Oxygen Saturation ABG 96.8 % (95.0-100.0); Oxyhemoglobin 94.8 % THb (90.0-100.0); PO2 ABG 81.4 mmHg (80.0-100.0); PO2 FiO2 Ratio Arterial Blood 2.71 %; Reduced Hemoglobin 3.9 %THb (0-5.0); Total Hemoglobin 11.1 g/dL (12.0-18.0)
[2023-11-07 05:03] LABS: Device VENTILATOR; Modified Allen's Test Pass; Site Drawn RIGHT RADIAL
[2023-11-07 05:04] LABS: Arterial Blood Gas PEEP 8 cmH2O; Arterial Blood Gas Tidal Volume 400 ml; Arterial Blood Gas Vent Mode CMV; Arterial Blood Gas Ventilator rate 18 /MIN
[2023-11-07] MEDS: CENTRAL LINE FLUSH 10 ML IV PUSH ×3 (05:07→21:14)
[2023-11-07] MEDS: metroNIDAZOLE 500 MG/ISO 100ML 500 MG/100 ML BAG 100 MG IVPB ×3 (05:07→21:10)
[2023-11-07] MEDS: hydrALAZINE HCL 20 MG/ML VIAL 10 MG IV PUSH ×2 (05:07→13:15)
[2023-11-07 05:32] LABS: Hemoglobin 10.1 g/dL (12.0-15.0); Mean Corpuscular HGB Conc 28.9 g/dl (32-36); Mean Corpuscular Hemoglobin 27.4 pg (26-34); Mean Corpuscular Volume 95.1 fl (80-100); Mean Platelet Volume 9.9 fl (7.4-10.4); Platelet Count Result 403 k/mm3 (150-375); Red Blood Count 3.68 M/mm3 (4.2-5.4); Red Cell Distribution Width 20.8 % (11.5-14.5); White Blood Count 12.2 K/mm3 (4.5-10.0)
[2023-11-07 05:46] LABS: Alanine Aminotransferase 176 U/L (6-35); Albumin Level 3.5 g/dL (3.5-5.1); Alkaline Phosphatase 90 U/L (38-126); Anion Gap 8 mmol/L (4-12); Aspartate Amino Transferase 111 U/L (14-36); Bilirubin,Total 0.5 mg/dL (0.2-1.3); Blood Urea Nitrogen 37 mg/dL (7-17); Calcium 8.9 mg/dL (8.4-10.2); Carbon Dioxide 28 mmol/L (22-30); Chloride 117 mmol/L (98-107); Creatine Kinase 83 U/L (30-135); Estimated CRCL calculation 48 ml/min; Estimated Glomerular Filt Rate > 60; Glucose 270 mg/dL (65-110); Magnesium 2.6 mg/dL (1.6-2.3); Phosphorus 2.5 mg/dL (2.5-4.5); Potassium 3.5 mmol/L (3.4-5.0); Sodium 153 mmol/L (137-145)
[2023-11-07] MEDS: CEFEPIME 2 GM/NS 50 ML 2 GM/50 ML BAG IVPB ×2 (08:07→20:00)
[2023-11-07] MEDS: levETIRAcetam 500MG/NACL 100ML 500 MG/100 ML BAG 400 MG IVPB ×2 (08:07→20:01)
[2023-11-07] MEDS: ASPIRIN 81 MG CHEWABLE TABLET PO (08:15)
[2023-11-07] MEDS: TOLNAFTATE 1% POWDER 45 GM BTL 1 APPLIC TOPICAL ×2 (08:15→20:08)
[2023-11-07] MEDS: TICAGRELOR 90 MG TABLET PO ×2 (08:15→20:01)
[2023-11-07] MEDS: PANTOPRAZOLE SODIUM IV 40 MG VIAL IV PUSH (08:15)
[2023-11-07] MEDS: MINERAL OIL/WHITE PETROLATUM OINTMENT 1 APPLIC EACH EYE ×2 (08:16→20:01)
[2023-11-07] MEDS: ENOXAPARIN 40 MG/0.4 ML SYRINGE SUB-Q (08:17)
[2023-11-07 08:29] LABS: Glucose Point of Care 284 mg/dl (65-105)
[2023-11-07] MEDS: POTASSIUM CHLORIDE 20 MEQ PACKET (FOR LIQUID) 40 MEQ FEED TUBE (08:30)
[2023-11-07] MEDS: INSULIN GLARGINE (*BKC) 100 UNITS/ML 40 UNITS SUB-Q (08:31)
[2023-11-07] MEDS: DEXTROSE 5% IN WATER 500 ML 100 ML IV CONT (08:31)
--- NOTE | 2023-11-07 08:33 | WPDINTPN ---
Progress Note: A&P Assessment and Plan (1) Anoxic brain injury: Code(s): G93.1 - Anoxic brain damage, not elsewhere classified Status: Acute Assessment and Plan: Patient has sustained significant anoxic brain injury due to her cardiac arrest She has been Off sedation since morning of 11/03 and there has been no significant change in neurological exam CT on presentation was negative but repeat CT scan on 11/05 showed Diffuse hypodensity of the campbell matter, consistent with infarct (anoxic brain injury). Examination as above She has completed TTM protocol and has been rewarmed She continues to have myoclonic jerking but no other obvious clinical seizures Continue [facility] Neurology consulted but no neurology service this weekend EEG done and report pending Continue to hold sedatives and supportive care Prognosis is poor (2) Cardiac arrest: Code(s): I46.9 - Cardiac arrest, cause unspecified Status: Acute Assessment and Plan: Cardiac arrest secondary to STEMI Patient now status post PCI and stent placement in RCA Continue management with dual antiplatelet therapy Hold statin due to elevated liver enzymes Beta-autumn and LAUREN-inhibitor were held due to shock and renal failure Echo Summary 1. Left ventricular chamber dimension is normal. 2. Left ventricular systolic function is normal, estimated at 65-70%. 3. There is mildly increased left ventricular wall thickness. 4. The left ventricular diastolic function is grade I diastolic dysfunction. 5. Right ventricular chamber dimension is mildly enlarged. 6. Left atrial chamber dimension is mildly enlarged. 7. There is mild mitral valve regurgitation. 8. There is mild tricuspid valve regurgitation. (3) LENIN (acute kidney injury): Code(s): N17.9 - Acute kidney failure, unspecified Status: Acute Assessment and Plan: Multifactorial acute renal failure likely secondary to cardiac arrest shock and respiratory failure Patient overall volume overloaded and will hold further IV fluids Monitor urine output electrolytes and creatinine Creatinine improved to 1.0 Nephrology following Off IV fluid with bicarb as metabolic acidosis improved (4) Rhabdomyolysis: Code(s): M62.82 - Rhabdomyolysis Status: Acute Assessment and Plan: Could be secondary to hypothermia protocol Patient currently on Nimbex infusion to minimize shivering Monitor CK level which is improving Now off of IV fluids (5) ST elevation (STEMI) myocardial infarction: Qualifiers: Involved coronary artery: unspecified coronary artery Qualified Code(s): I21.3 - ST elevation (STEMI) myocardial infarction of unspecified site Code(s): I21.3 - ST elevation (STEMI) myocardial infarction of unspecified site Status: Acute Assessment and Plan: See above (6) Insulin dependent diabetes mellitus: Status: Acute Assessment and Plan: Uncontrolled diabetes mellitus with hyperglycemia Increase Lantus and continue sliding scale insulin (7) Acute respiratory failure with hypoxia: Code(s): J96.01 - Acute respiratory failure with hypoxia Status: Acute Assessment and Plan: Patient has history of chronic respiratory failure secondary to obesity hypoventilation and obstructive sleep apnea Patient is a chronic CO2 retainer Patient now intubated and sedated due to cardiac arrest chest x-ray shows pulmonary possible pneumonia which could be aspiration She also has a small right pleural effusion Chest x-ray reviewed and endotracheal tube is in acceptable position ABG reviewed and continue CMV but decrease tidal volume to 350 and rate to 18. Decrease PEEP to 8 Bronchodilators ordered Treatment of pneumonia as below (8) Encephalopathy: Code(s): G93.40 - Encephalopathy, unspecified Status: Acute (9) Shock: Code(s): R57.9 - Shock, unspecified Status: Acute Assessment and Plan: Make shock
[2023-11-07 12:07] LABS: Glucose Point of Care 353 mg/dl (65-105)
--- NOTE | 2023-11-07 13:35 | PM.PNNEP ---
Progress Note: A&P Assessment and Plan (1) LENIN (acute kidney injury): Code(s): N17.9 - Acute kidney failure, unspecified Status: Acute Assessment and Plan: as noted on admission improvement noted/if not back to baseline suspect ATN with multifactorial etiology: hemodynamic instability/shock cardiac arrest acute respiratory failure possible prerenal factors diuretic use prior to admission contrast use (although creatinine was already elevated prior to exposure) element of rhabdomyolysis (elevated CPK) evaluation to date: CPK trending down urine electrolytes prerenal urine eosinophils negative mild proteinuria not opposed to IV diuretics if needed follow repeat labs and UOP (2) Chronic kidney disease, stage 3: Code(s): N18.30 - Chronic kidney disease, stage 3 unspecified Status: Chronic Assessment and Plan: baseline creatinine runs ~ 1.1 - 1.3mg/dl hence, she fluctuates between CKD stage 3A and stage 3B presumably secondary to cardiac/vascular disease, HTN, diabetes, ALMA/OSH, obesity, and age-related change (3) Hypernatremia: Code(s): E87.0 - Hyperosmolality and hypernatremia Status: Acute Assessment and Plan: due to free water deficit adjust/increase free water flushes with tube feeding to compensate follow trend of sodium level (4) Cardiac arrest: Code(s): I46.9 - Cardiac arrest, cause unspecified Status: Acute Assessment and Plan: presumably secondary to STEMI s/p cardiac cath with PCI/stent placement on DAPT BB/LAUREN-I/statin were on hold -- slowly re-introduce as tolerated Echo results noted Cardiology following (5) Acute respiratory failure with hypoxia: Code(s): J96.01 - Acute respiratory failure with hypoxia Status: Acute Assessment and Plan: secondary to cardiac arrest complicated by known history of chronic respiratory failure from OHS + ALMA possible component of pneumonia (aspiration?) on antibiotics on ventilator support continue supportive therapy (6) ST elevation (STEMI) myocardial infarction: Qualifiers: Involved coronary artery: unspecified coronary artery Qualified Code(s): I21.3 - ST elevation (STEMI) myocardial infarction of unspecified site Code(s): I21.3 - ST elevation (STEMI) myocardial infarction of unspecified site Status: Acute Assessment and Plan: see #4 (7) Shock: Code(s): R57.9 - Shock, unspecified Status: Acute Assessment and Plan: resolving/resolved due to secondary to STEMI/cardiac arrest component of sepsis from aspiration pneumonia(?) off vasopressor support follow culture data - negative to date however, + fevers noted on antibiotics (8) Encephalopathy: Code(s): G93.40 - Encephalopathy, unspecified Status: Acute Assessment and Plan: concern for anoxic brain injury off sedation since morning of 11/03 with no change in neuro status/exam CT of head negative Neurology consulted follow-up on EEG report follow mentation (9) Insulin dependent diabetes mellitus: Status: Acute Assessment and Plan: follow accu-cheks glycemic control per pipe assembly worker/hospitalists Noted Dr. 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 Not much else to add from my perspective...will continue to follow from a distance. Subjective Date/time seen: 11/07/23 13:35 Interval history: Follow-up for acute kidney injury/acute renal failure on chronic kidney disease. Remains the same -- intubated and on mechanical ventilation with no real change in neurological status; renal function/creatinine back to baseline (if not better) with reasonable urine output; febrile overnight and issue
--- NOTE | 2023-11-07 13:35 | P.PNNP_ITS ---
Progress Note: A&P Assessment and Plan (1) LENIN (acute kidney injury): Code(s): N17.9 - Acute kidney failure, unspecified Status: Acute Assessment and Plan: * as noted on admission * improvement noted/if not back to baseline * suspect ATN with multifactorial etiology: * hemodynamic instability/shock * cardiac arrest * acute respiratory failure * possible prerenal factors * diuretic use prior to admission * contrast use (although creatinine was already elevated prior to exposure) * element of rhabdomyolysis (elevated CPK) * evaluation to date: * CPK trending down * urine electrolytes prerenal * urine eosinophils negative * mild proteinuria * not opposed to IV diuretics if needed * follow repeat labs and UOP (2) Chronic kidney disease, stage 3: Code(s): N18.30 - Chronic kidney disease, stage 3 unspecified Status: Chronic Assessment and Plan: * baseline creatinine runs ~ 1.1 - 1.3mg/dl * hence, she fluctuates between CKD stage 3A and stage 3B * presumably secondary to cardiac/vascular disease, HTN, diabetes, ALMA/OSH, obesity, and age-related change (3) Hypernatremia: Code(s): E87.0 - Hyperosmolality and hypernatremia Status: Acute Assessment and Plan: * due to free water deficit * adjust/increase free water flushes with tube feeding to compensate * follow trend of sodium level (4) Cardiac arrest: Code(s): I46.9 - Cardiac arrest, cause unspecified Status: Acute Assessment and Plan: * presumably secondary to STEMI * s/p cardiac cath with PCI/stent placement * on DAPT * BB/LAUREN-I/statin were on hold -- slowly re-introduce as tolerated * Echo results noted * Cardiology following (5) Acute respiratory failure with hypoxia: Code(s): J96.01 - Acute respiratory failure with hypoxia Status: Acute Assessment and Plan: * secondary to cardiac arrest * complicated by known history of chronic respiratory failure from OHS + ALMA * possible component of pneumonia (aspiration?) * on antibiotics * on ventilator support * continue supportive therapy (6) ST elevation (STEMI) myocardial infarction: Qualifiers: Involved coronary artery: unspecified coronary artery Qualified Code(s): I21.3 - ST elevation (STEMI) myocardial infarction of unspecified site Code(s): I21.3 - ST elevation (STEMI) myocardial infarction of unspecified site Status: Acute Assessment and Plan: * see #4 (7) Shock: Code(s): R57.9 - Shock, unspecified Status: Acute Assessment and Plan: * resolving/resolved * due to secondary to STEMI/cardiac arrest * component of sepsis from aspiration pneumonia(?) * off vasopressor support * follow culture data - negative to date * however, + fevers noted * on antibiotics (8) Encephalopathy: Code(s): G93.40 - Encephalopathy, unspecified Status: Acute Assessment and Plan: * concern for anoxic brain injury * off sedation since morning of 11/03 with no change in neuro status/exam * CT of head negative * Neurology consulted * follow-up on EEG report * follow mentation (9) Insulin dependent diabetes mellitus: Status: Acute Assessment and Plan: * follow accu-cheks * glycemic control per beet flumer/hospitalists Noted Dr. 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
--- NOTE | 2023-11-07 13:49 | PC.NURSE ---
Kay Espinosa from [facility] called for update on patient. Gave patient update and they will call tomorrow for further updates.
--- NOTE | 2023-11-07 15:53 | PM.IMPN ---
Progress Note: A&P Assessment and Plan (1) Anoxic brain injury: Code(s): G93.1 - Anoxic brain damage, not elsewhere classified Status: Acute (2) LENIN (acute kidney injury): Code(s): N17.9 - Acute kidney failure, unspecified Status: Acute (3) ST elevation (STEMI) myocardial infarction: Qualifiers: Involved coronary artery: unspecified coronary artery Qualified Code(s): I21.3 - ST elevation (STEMI) myocardial infarction of unspecified site Code(s): I21.3 - ST elevation (STEMI) myocardial infarction of unspecified site Status: Acute (4) Cardiac arrest: Code(s): I46.9 - Cardiac arrest, cause unspecified Status: Acute Plan Ms. Dorantes is a 78-year-old female with PMH asthma, CHF, chronic respiratory failure with hypercarbia, GERD, hyperlipidemia, diabetes, obesity, hypoventilation syndrome/ALMA. She is a resident of a retirement and was brought to the ER on the night of 11/03/2023 after sustaining a cardiac arrest. She was found unresponsive by retirement staff and on EMS arrival was found to be in asystole. The patient received resuscitation with CPR and epinephrine in brought to the [place] ER. Had a episode of V-tach in the ambulance. Patient was intubated in the ER and again entered a and CPR was initiated and the patient was given epinephrine and bicarb. EKG demonstrated ST segment elevation in the inferior leads and patient was taken urgently to the cardiac cemetery laborer. Found to have 100% occlusion of RCA and a stent was placed. 80% obstruction of LAD which was not intervened on. The patient had bradycardia and a temporary transvenous catheter was placed. Postop the patient was admitted to the ICU. She was started on targeted temperature management protocol due to suspected anoxic brain injury as the patient was not having any purposeful movements. She was then sedated with Versed and fentanyl, started on Levophed, IV fluids with bicarbonate, IV antibiotics. ----- Repeat CT on 11/05 demonstrating diffuse hypodensity of the campbell matter consistent with anoxic brain injury/infarct. She has myoclonic jerking. Neurology consultation awaiting. EEG done, report pending. The patient continues to display anoxic brain injury. Discussion held between gis geographer and POA. The patient is DNR and palliative care is anticipated, awaiting other family members. DNR Subjective Date/time seen: 11/07/23 15:53 Interval history: Patient is still intubated. She opens her eyes but does not have purposeful movement. Review of Systems Review of Systems: ROS unobtainable: Yes unobtainable due to endotracheal tube, unobtainable due to medical condition and unobtainable due to mental status Exam Const: Other: Intubated. Eyes: Pupils: Equal, round and reactive pupils present Resp: Other: Mechanical and coarse breath sounds. Cardio: Rate: regular rate Rhythm: regular rhythm GI: GI Palp: Yes Soft to palpation and No Tenderness to palpation present (GI) Other: Obese abdomen Extrem: General: no edema Objective Data Vital Signs Vital Signs: Vital Signs - 24 hr 11/06/23 16:00 11/06/23 16:00 11/06/23 17:20 Temperature Pulse Rate 89 90 Respiratory Rate Blood Pressure Pulse Oximetry 99 Oxygen Delivery Mechanical Ventilation Mechanical Ventilation Fraction of Inspired Oxygen 30 30 11/06/23 16:00 11/06/23 16:00 11/06/23 18:00 Temperature 100.8 F H Pulse Rate 89 90 Respiratory Rate 18 Blood Pressure 186/74 H Pulse Oximetry 99 Oxygen Delivery Fraction of Inspired Oxygen 30 11/06/23 18:00 11/06/23 20:23 11/06/23 20:35 Temperature 100.8 F H Pulse Rate 91 91 92 Respiratory Rate 18 Blood Pressure 187/75 H Pulse Oximetry 99 100 Oxygen Delivery Mechanical Ventilation Fraction of Inspired Oxygen 30 11/06/23 23:01 11/06/23 20:00 11/06/23 20:00 Temperature 100.8 F H Pulse Rate 86 92 Res
[2023-11-07 16:29] LABS: Anion Gap 7 mmol/L (4-12); Blood Urea Nitrogen 43 mg/dL (7-17); Calcium 8.4 mg/dL (8.4-10.2); Carbon Dioxide 27 mmol/L (22-30); Chloride 116 mmol/L (98-107); Estimated CRCL calculation 39 ml/min; Estimated Glomerular Filt Rate 48; Glucose 351 mg/dL (65-110); Potassium 4.2 mmol/L (3.4-5.0); Sodium 150 mmol/L (137-145)
[2023-11-07 21:09] LABS: Glucose Point of Care 311 mg/dl (65-105)
[2023-11-08] VITALS (23 sets, daily range): BP systolic 135–170; BP diastolic 46–61; PULSE 75–88; RESP 18; TEMP 37.4–37.7; O2SAT 90–100
[2023-11-08 00:03] LABS: Glucose Point of Care 263 mg/dl (65-105)
[2023-11-08] MEDS: INSULIN ASPART (*BKC) 100 UNITS/ML SUB-Q ×4 (00:03→11:52)
[2023-11-08] MEDS: LABETALOL HCL INJ 100 MG/20 ML VIAL 20 MG IV PUSH ×2 (02:51→09:28)
[2023-11-08 03:12] LABS: Glucose Point of Care 326 mg/dl (65-105)
[2023-11-08] MEDS: metroNIDAZOLE 500 MG/ISO 100ML 500 MG/100 ML BAG 100 MG IVPB ×2 (05:03→14:00)
[2023-11-08] MEDS: CENTRAL LINE FLUSH 10 ML IV PUSH ×2 (05:03→14:01)
[2023-11-08 05:18] LABS: Hematocrit 34.8 % (37.0-47.0); Hemoglobin 9.9 g/dL (12.0-15.0); Mean Corpuscular HGB Conc 28.4 g/dl (32-36); Mean Corpuscular Hemoglobin 27.4 pg (26-34); Mean Corpuscular Volume 96.4 fl (80-100); Mean Platelet Volume 10.2 fl (7.4-10.4); Platelet Count Result 403 k/mm3 (150-375); Red Blood Count 3.61 M/mm3 (4.2-5.4); White Blood Count 11.2 K/mm3 (4.5-10.0)
[2023-11-08 05:30] LABS: Alanine Aminotransferase 119 U/L (6-35); Albumin Level 3.3 g/dL (3.5-5.1); Alkaline Phosphatase 86 U/L (38-126); Anion Gap 7 mmol/L (4-12); Aspartate Amino Transferase 72 U/L (14-36); Bilirubin,Total 0.5 mg/dL (0.2-1.3); Blood Urea Nitrogen 43 mg/dL (7-17); Calcium 8.6 mg/dL (8.4-10.2); Carbon Dioxide 27 mmol/L (22-30); Chloride 120 mmol/L (98-107); Creatine Kinase 60 U/L (30-135); Estimated CRCL calculation 44 ml/min; Estimated Glomerular Filt Rate 54; Glucose 348 mg/dL (65-110); Magnesium 2.5 mg/dL (1.6-2.3); Potassium 3.9 mmol/L (3.4-5.0); Sodium 154 mmol/L (137-145)
[2023-11-08 05:59] LABS: Alveolar/Arterial O2 Gradient 114.4 mmHg; Base Excess ABG 1.5 mEq/l (+/-2.0); Carboxyhemoglobin 1.1 % THb (0-2.0); Fractional Inspired Oxygen 30 %; HCO3 ABG 25.9 mEq/l (22.0-26.0); Methemoglobin ABG 0.1 %THb (0-1.5); Oxygen Content ABG 12.8 %vol (16.0-22.0); Oxygen Saturation ABG 88.1 % (95.0-100.0); PO2 ABG 52.5 mmHg (80.0-100.0); PO2 FiO2 Ratio Arterial Blood 1.75 %; Reduced Hemoglobin 14.5 %THb (0-5.0); Total Hemoglobin 10.8 g/dL (12.0-18.0); pH ABG 7.429 (7.350-7.450)
[2023-11-08 06:01] LABS: Device VENTILATOR; Modified Allen's Test Pass; Oxyhemoglobin 84.3 % THb (90.0-100.0); Site Drawn RIGHT RADIAL
[2023-11-08 06:02] LABS: Arterial Blood Gas PEEP 8 cmH2O; Arterial Blood Gas Tidal Volume 350 ml; Arterial Blood Gas Vent Mode CMV; Arterial Blood Gas Ventilator rate 18 /MIN
[2023-11-08] MEDS: hydrALAZINE HCL 20 MG/ML VIAL 10 MG IV PUSH (06:09)
[2023-11-08 07:57] LABS: Glucose Point of Care 277 mg/dl (65-105)
[2023-11-08] MEDS: INSULIN GLARGINE (*BKC) 100 UNITS/ML 40 UNITS SUB-Q (08:20)
[2023-11-08] MEDS: ENOXAPARIN 40 MG/0.4 ML SYRINGE SUB-Q (08:23)
[2023-11-08] MEDS: MINERAL OIL/WHITE PETROLATUM OINTMENT 1 APPLIC EACH EYE (08:38)
[2023-11-08] MEDS: CEFEPIME 2 GM/NS 50 ML 2 GM/50 ML BAG IVPB (08:38)
[2023-11-08] MEDS: levETIRAcetam 500MG/NACL 100ML 500 MG/100 ML BAG 400 MG IVPB (08:38)
[2023-11-08] MEDS: TOLNAFTATE 1% POWDER 45 GM BTL 1 APPLIC TOPICAL (08:38)
[2023-11-08] MEDS: PANTOPRAZOLE SODIUM IV 40 MG VIAL IV PUSH (08:38)
[2023-11-08] MEDS: TICAGRELOR 90 MG TABLET PO (08:38)
[2023-11-08] MEDS: ASPIRIN 81 MG CHEWABLE TABLET PO (08:38)
[2023-11-08] MEDS: INSULIN GLARGINE (*BKC) 100 UNITS/ML 20 UNITS SUB-Q (09:23)
[2023-11-08] MEDS: DEXTROSE 5% 1,000 ML 1,000 ML 100 ML IV CONT (09:24)
--- NOTE | 2023-11-08 09:40 | WPDINTPN ---
Progress Note: A&P Assessment and Plan (1) Anoxic brain injury: Code(s): G93.1 - Anoxic brain damage, not elsewhere classified Status: Acute Assessment and Plan: Patient has sustained significant anoxic brain injury due to her cardiac arrest She has been Off sedation since morning of 11/03 and there has been no significant change in neurological exam CT on presentation was negative but repeat CT scan on 11/05 showed Diffuse hypodensity of the campbell matter, consistent with infarct (anoxic brain injury). Examination as above She has completed TTM protocol and has been rewarmed She continues to have myoclonic jerking but no other obvious clinical seizures Continue [facility] Neurology consulted but no neurology service this weekend EEG done and report pending Continue to hold sedatives and supportive care Prognosis is poor and family is planning for palliative extubation and comfort care (2) Cardiac arrest: Code(s): I46.9 - Cardiac arrest, cause unspecified Status: Acute Assessment and Plan: Cardiac arrest secondary to STEMI Patient now status post PCI and stent placement in RCA Continue management with dual antiplatelet therapy Hold statin due to elevated liver enzymes Beta-autumn and LAUREN-inhibitor were held due to shock and renal failure Echo Summary 1. Left ventricular chamber dimension is normal. 2. Left ventricular systolic function is normal, estimated at 65-70%. 3. There is mildly increased left ventricular wall thickness. 4. The left ventricular diastolic function is grade I diastolic dysfunction. 5. Right ventricular chamber dimension is mildly enlarged. 6. Left atrial chamber dimension is mildly enlarged. 7. There is mild mitral valve regurgitation. 8. There is mild tricuspid valve regurgitation. (3) LENIN (acute kidney injury): Code(s): N17.9 - Acute kidney failure, unspecified Status: Acute Assessment and Plan: Multifactorial acute renal failure likely secondary to cardiac arrest shock and respiratory failure Patient overall volume overloaded and will hold further IV fluids Monitor urine output electrolytes and creatinine Creatinine improved to 1.0 Nephrology following Off IV fluid with bicarb as metabolic acidosis improved (4) Rhabdomyolysis: Code(s): M62.82 - Rhabdomyolysis Status: Acute Assessment and Plan: Could be secondary to hypothermia protocol Patient currently on Nimbex infusion to minimize shivering Monitor CK level which is improving Now off of IV fluids (5) ST elevation (STEMI) myocardial infarction: Qualifiers: Involved coronary artery: unspecified coronary artery Qualified Code(s): I21.3 - ST elevation (STEMI) myocardial infarction of unspecified site Code(s): I21.3 - ST elevation (STEMI) myocardial infarction of unspecified site Status: Acute Assessment and Plan: See above (6) Insulin dependent diabetes mellitus: Status: Acute Assessment and Plan: Uncontrolled diabetes mellitus with hyperglycemia Increase Lantus and continue sliding scale insulin (7) Acute respiratory failure with hypoxia: Code(s): J96.01 - Acute respiratory failure with hypoxia Status: Acute Assessment and Plan: Patient has history of chronic respiratory failure secondary to obesity hypoventilation and obstructive sleep apnea Patient is a chronic CO2 retainer Patient now intubated and sedated due to cardiac arrest chest x-ray shows pulmonary possible pneumonia which could be aspiration She also has a small right pleural effusion Chest x-ray reviewed and endotracheal tube is in acceptable position ABG reviewed and continue CMV continue tidal volume to 350 and rate to 18. Decrease PEEP to 8 Bronchodilators ordered Treatment of pneumonia as below (8) Encephalopathy: Code(s): G93.40 - Encephalopathy, unspecified Status: Acute (9) Shock: Code(s): R57.9 - Shock, unspecified
[2023-11-08] MEDS: carvediloL 3.125 MG TABLET FEED TUBE (09:52)
[2023-11-08] MEDS: amLODIPine BESYLATE 5 MG TABLET FEED TUBE (09:52)
--- NOTE | 2023-11-08 10:02 | WPDNEUROLOGY ---
Neurology EEG Report General Information Date of Study: 11/05/23 TEST Electroencephalogram DIAGNOSIS post anoxic encephalopathy CONDITION OF RECORDING in intensive care unit by the patient's bedside EEG NUMBER [id number] CLINICAL HISTORY history of cardiac arrest. Patient is currently on ventilator support and unresponsive EEG DESCRIPTION The background activity consists of low-amplitude mixed frequency predominantly theta activity the amplitude of 5-10 microvolts. There is no significant anteroposterior gradient. Patient reported to be comatose throughout the recording. Activation procedures were not performed. IMPRESSION This is an abnormal EEG due to presence of moderate diffuse background slowing suggestive of generalized encephalopathy. No focal or paroxysmal abnormality was seen.
--- NOTE | 2023-11-08 10:24 | PM.PNCARD ---
Progress Note: A&P Assessment and Plan (1) ST elevation (STEMI) myocardial infarction: Qualifiers: Involved coronary artery: unspecified coronary artery Qualified Code(s): I21.3 - ST elevation (STEMI) myocardial infarction of unspecified site Code(s): I21.3 - ST elevation (STEMI) myocardial infarction of unspecified site Status: Acute Plan 78-year-old lady with: Coronary artery disease presenting with cardiac arrest in setting of acute ST-elevation SD with acute occlusion of the right coronary artery. Despite successful revascularization, good left ventricular function hemodynamics and oxygenation she has unfortunately gone on to develop severe anoxic encephalopathy. Prospects for meaningful neurological recovery at this point are nil. Understand and agree with plans to withdraw support when the family is prepared to take that step. Jose Raul Vickers MD [facility] Subjective Date/time seen: date of service 11/08/23 10:24 Interval history: Reason for visit: STEMI, cardiac arrest HPI: This is a 78-year-old woman who I was called to bring to the cardiac cath lab manager late this evening because of cardiac arrest following resuscitation she appears to have inferior ST-elevation SD. There is no previous cardiac history. The patient was found asystolic at her residence. She also had a ventricular tachycardia arrest in the ambulance on the way to the hospital and a ventricular fibrillation arrest in the emergency department. Patient has morbid obesity, hypoventilation, diabetes and dyslipidemia in her medical history. Obviously the patient is currently unresponsive and no direct history is obtainable. Date of service 11/02: Remains intubated, on pressors. In sinus rhythm, not requiring temporary pacer. Date of service 11/03: Sedation stopped this morning. Rewarming phase started this morning at 7:30. Remains in sinus rhythm with no issues with bradycardia or other arrhythmias. Date of service 11/05/2023: Patient remains intubated on full ventilator support in the ICU. Off sedation since yesterday now we warmed. She is obtunded Date of service 11/06/2023: Clinically unchanged remains on full ventilator support and unresponsive. Date of service 11/08/2023: Patient is clinically unchanged. Expectation is to withdraw support later today. Exam Const: Other: Intubated obese elderly lady unresponsive HENMT: Mouth: Yes moist mucous membranes Other: OETT in place Eyes: Sclera: sclerae normal Neck: Neck: supple Resp: Other: Breath sounds essentially clear Cardio: Rate: regular rate Rhythm: regular rhythm Other: exam very difficult no obvious murmur or gallop GI: Other: very large protruding obese abdomen Urinary Catheter: Urinary Catheter: patent and draining Skin: General skin exam: normal color Neuro: Other: Unresponsive Extrem: Other: Normal perfusion, no edema Objective Data Vital Signs Vital Signs: Vital Signs - 24 hr 11/07/23 10:54 11/07/23 10:54 11/07/23 12:00 Temperature Pulse Rate 70 70 72 Respiratory Rate 18 Blood Pressure Pulse Oximetry 96 Oxygen Delivery Mechanical Ventilation Fraction of Inspired Oxygen 30 11/07/23 12:00 11/07/23 12:00 11/07/23 12:00 Temperature 37.1 C Pulse Rate 72 Respiratory Rate 18 Blood Pressure 145/57 H Pulse Oximetry 96 Oxygen Delivery Mechanical Ventilation Fraction of Inspired Oxygen 30 30 11/07/23 13:16 11/07/23 14:00 11/07/23 14:00 Temperature 37.2 C Pulse Rate 76 76 Respiratory Rate 18 Blood Pressure 167/63 H 132/47 L Pulse Oximetry 96 Oxygen Delivery Fraction of Inspired Oxygen 11/07/23 14:16 11/07/23 14:16 11/07/23 16:05 Temperature Pulse Rate 75 75 81 Respiratory Rate 18 Blood Pressure Pulse Oximetry 96 96 Oxygen Delivery Mechanical Ventilation Mechanical Ventilation Fraction of Inspired Oxygen 30 30 11/07/23 16
--- NOTE | 2023-11-08 11:09 | PCFNICU ---
ICU Rounding Note: Pt current nutrition is Vital AF 1.2 at 50 ml/hr. Last recorded weight is 91.4 kg, down from 94.2 kg on admit. Bowel Motility: last reported BM 11/06 Labs Reviewed: Glu 248, BUN 43, K 3.3,Na 154, Hct 34.5,Hgb 9.9 Meds Noted: Versed, Fentanyl, Lantus, Keppra, NovoLog, Flagyl Skin: WNL Additional Notes: Patient remains on mechanical vent. Tube feedings remains of Vital AF 1.2 at 50 ml/hr and tolerating per nursing. Flush increased to 350 ml q 4 hours due to elevated Na levels. Glass Production Machine Operator in discussions with family regarding plan of care. Patient made DNR. Neurology is following. Agree with diet orders at this time. Following daily in ICU rounds. Will monitor weight, labs, skin, diet orders, meds every Wednesday and Wednesday.
[2023-11-08 11:45] LABS: Glucose Point of Care 380 mg/dl (65-105)
--- NOTE | 2023-11-08 12:06 | WPDNEURCNPN ---
Assessment and Plan Assessment and plan (1) Anoxic brain injury: Code(s): G93.1 - Anoxic brain damage, not elsewhere classified Status: Acute Assessment and Plan: I have discussed the situation with the patient's 2 sons in the room and also with the drawstring knotter Dr. Carpenter. The patient today a severe encephalopathy due to prior hypoxic ischemic injury due to cardiac arrest. Her prognosis is extremely poor. The family wants to withdraw life support system. EEG was performed on 11/05/2023, which shows diffuse background slowing however no focal or paroxysmal epileptiform abnormalities were seen. (2) Cardiac arrest: Code(s): I46.9 - Cardiac arrest, cause unspecified Status: Acute (3) ST elevation (STEMI) myocardial infarction: Qualifiers: Involved coronary artery: unspecified coronary artery Qualified Code(s): I21.3 - ST elevation (STEMI) myocardial infarction of unspecified site Code(s): I21.3 - ST elevation (STEMI) myocardial infarction of unspecified site Status: Acute (4) Insulin dependent diabetes mellitus: Status: Acute (5) Chronic hypercapnic respiratory failure: Code(s): J96.12 - Chronic respiratory failure with hypercapnia Status: Acute Plan Please refer to recommendations given above. Consult date: 11/08/23 HPI: Idalia Dorantes is a 78 year old female history of cardiac arrest on 11/03/2023. Patient had not responded in terms of mental alertness despite the life support systems in place. Two of her sons were present at the time of the evaluation and the considering withdrawal of the life support system. Patient has history of diabetes mellitus and obstructive sleep apnea syndrome, obesity hypoventilation syndrome. She was also found to have myocardial infarction and has acute renal insufficiency. She was found to have ventricular tachycardia. Initially she has some myoclonic jerks however at this time she has roving eye movements and blinks where she remain on conscious on ventilator support. She has not had any with this seizures. Prior to the event, she could get around in a wheelchair. No prior history of stroke or seizures. 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 Never smoked tobacco Obesity hypoventilation syndrome Obstructive sleep apnea Surgical History Surgical History Surgical history unknown Family History Family History Mother Family history of cardiovascular disease Father Family history of lung cancer Other Unknown family medical history Social History Social History Smoking status: Never smoker Alcohol intake: never Substance use: never Substance use type: does not use Living arrangements: [facility] Spiritual care concerns: No Meds Home Medications and Allergies Home Medications Medication Instructions Recorded Confirmed Type aspirin 81 mg tablet,delayed 81 mg PO DAILY 04/28/19 11/03/23 History release (Adult Aspirin Regimen) calcium carbonate (Calcium 600) 600 mg PO DAILY 04/28/19 11/03/23 History nystatin 100,000 unit/gram topical 1 applic topical BID 04/28/19 11/03/23 History powder (Nystop) polyethylene glycol 3350 17 17 gm PO DAILY 04/28/19 11/03/23 History gram/dose oral powder (Miralax) fenofibrate nanocrystallized 145 145 mg PO HS 0
[2023-11-08 16:21] LABS: Glucose Point of Care 319 mg/dl (65-105)
[2023-11-08] MEDS: LORazepam INJ (*CRX) 2 MG/ML VIAL IV PUSH (17:16)
[2023-11-08] MEDS: MORPHINE SULFATE INJ (*CRX) 10 MG/ML AMP 5 MG IV PUSH (17:17)
--- NOTE | 2023-11-08 18:19 | PC.NURSE ---
1717 Ativan and Morphine given and patient extubated. Patient asystole and no respirations at 1726 time of . Family present.
--- NOTE | 2023-12-23 07:34 | PM.DDS ---
Discharge Summary Date and Time Date of : 11/08/23 Time of : 17:26 Provider Pronounced By: 2 RNs Name of Provider That Pronounced: Jayden Name of First RN That Pronounced: Malika Sims RN Name of Second RN That Pronounced: Layla Terrazas RN Probable Cause of Probable Cause of : Cardiac arrest Summary Hospital Course: this is a 78-year-old woman who presented to the hospital following out of hospital cardiac arrest. She was found unresponsive at the halfway where she resides and was resuscitated by EMS. In the emergency room following resuscitation she was found by ECG to have acute inferior ST-elevation OK. She was brought emergently to the cardiac catheterization lab for revascularization. The patient was obviously intubated unresponsive and on ventilator support at the time of the procedure. 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 The angiographic result of the procedure was excellent. Following revascularization she was hospitalized for aggressive supportive the ICU she was initially on inotropes which were weaned but remained on ventilator support and remained unresponsive. The patient had clearly sustained a severe anoxic encephalopathy due to cardiac arrest outside of the hospital. On the day of expiration neurology consultation was obtained which agreed with the very poor prognosis. At that time the family decided to withdraw support. The patient was extubated and quickly after extubation in the ICU. Additional Data Confirmation of as documented by pronouncing clinician: Pupillary Reflex, Palpable Pulses, Response to Stimuli, Heart Tones and Breath Sounds Name of Provider Notified: Dr. Carpenter Time Provider Notified: 17:35 Provider Requests Autopsy: No Family Requests Autopsy: No Medical Billing Specialist Notified: Yes Date [facility] Notified of : 11/08/23 Time [facility] Notified of : 18:15 Advance directives: No Hospice patient?: No
== END 2023-11-08 17:26 | disposition expired | DRG 321 ==
LOC: ANHED 20:59 → ANHICU 23:52
PROVIDERS: Internal Medicine; Internal Medicine Nephrology; Specialist; Admitting Provider Internal Medicine; Emergency Provider Student in an Organized Health Care Education/Training Program; PCP Hospitalist; Visit Provider Internal Medicine
PROC: 4A023N7 Measurement of Cardiac Sampling and Pressure, Left Heart, Percutaneous Approach (ICD-10-PCS; CPT 93452; principal; 2023-11-02 22:00)
PROC: 027034Z Dilation of Coronary Artery, One Artery with Drug-eluting Intraluminal Device, Percutaneous Approach (ICD-10-PCS; 2023-11-02 22:00)
PROC: 027034Z Dilation of Coronary Artery, One Artery with Drug-eluting Intraluminal Device, Percutaneous Approach (ICD-10-PCS; CPT 33210; 2023-11-02 22:00)
DX: I21.11 ST elevation (STEMI) myocardial infarction involving right coronary artery (principal); A41.9 Sepsis, unspecified organism; J69.0 Pneumonitis due to inhalation of food and vomit; J96.21 Acute and chronic respiratory failure with hypoxia; R65.21 Severe sepsis with septic shock; N17.0 Acute kidney failure with tubular necrosis; J18.9 Pneumonia, unspecified organism; I47.20 Ventricular tachycardia, unspecified; M62.82 Rhabdomyolysis; N17.9 Acute kidney failure, unspecified; G93.1 Anoxic brain damage, not elsewhere classified; G93.49 Other encephalopathy; I13.0 Hypertensive heart and chronic kidney disease with heart failure and stage 1 through stage 4 chronic kidney disease, or unspecified chronic kidney disease; E87.0 Hyperosmolality and hypernatremia; E66.2 Morbid (severe) obesity with alveolar hypoventilation; I46.2 Cardiac arrest due to underlying cardiac condition; I49.01 Ventricular fibrillation; I50.9 Heart failure, unspecified; I25.10 Atherosclerotic heart disease of native coronary artery without angina pectoris; R57.0 Cardiogenic shock; R00.1 Bradycardia, unspecified; E11.22 Type 2 diabetes mellitus with diabetic chronic kidney disease; N18.30 Chronic kidney disease, stage 3 unspecified; K21.9 Gastro-esophageal reflux disease without esophagitis; E11.65 Type 2 diabetes mellitus with hyperglycemia; I34.0 Nonrheumatic mitral (valve) insufficiency; Z79.82 Long term (current) use of aspirin; Z79.4 Long term (current) use of insulin; I36.1 Nonrheumatic tricuspid (valve) insufficiency; Z79.84 Long term (current) use of oral hypoglycemic drugs; Z99.81 Dependence on supplemental oxygen; Z68.36 Body mass index [BMI] 36.0-36.9, adult
CPT/HCPCS: 31500; 33210; 36415; 36600; 70450; 71045; 72125; 76705; 80048; 80053; 80061; 80074; 80076; 80307; 81001; 81050; 82375; 82550; 82570; 82805; 82948; 83036; 83050; 83605; 83690; 83735; 83880; 84100; 84145; 84156; 84300; 84439; 84443; 84480; 84484; 84540; 84703; 85025; 85027; 85380; 85610; 85730; 85999; 86850; 86900; 86901; 87040; 87086; 87088; 87637; 87641; 93005; 93458; 94002; 94003; 94640; 95816; 96365; 96376; 99291; A9270; C1725; C1751; C1757; C1769; C1874; C1887; C1894; C8929; C9606; J0171; J0360; J0583; J0613; J0692; J1644; J1650; J1815; J1836; J1953; J2060; J2250; J2270; J2371; J2470; J3010; J3370; J3480; J7030; J7040; J7060; J7070; Q9957